=== PATIENT | male | born 1975 | race American Indian/Alaskan Native ===

== ENCOUNTER 2021-09-27 22:23 | Inpatient (IN) | payer OTHER ==
[2021-09-27] MEDS ORDERED: SODIUM CHLORIDE 0.9% 1000 ML 1,000 ML IV ONE ×2 (23:04→23:39)
--- NOTE | 2021-09-27 23:13 | Event Note ---
Date: 09/27/21 EMS documentation not available at time of chart dictation Verbal report received from emergency medical service Patient is a 46-year-old gentleman, who is currently incarcerated, who was sent to the emergency room by local retirement for medical clearance. The patient denies complaints. EMS reports the patient is tachycardic and hypotensive in the field. The patient has a history of morbid obesity, and chronic lymphedema in his right lower extremity. He states that the right lower extremity is chronically swollen. However, he denies headache, neck pain, chest pain, abdominal pain, vomiting. The patient denies shortness of breath. On examination, the patient is tachycardic and hypotensive and tachypneic. Right lower extremity shows a chronic appearing wound, that is warm, without pus or streaking obviously. It is asymmetrically swollen when compared to the right lower extremity. Fluids, EKG, laboratory studies ordered. Detailed history and physical to follow.
[2021-09-27] MEDS ORDERED: cefTRIAXone/NS 1 GM/50 ML 1 GM/50 ML BAG IV ONE (23:39)
[2021-09-27] MEDS ORDERED: VANCOMYCIN 2,000 MG in SODIUM CHLORIDE 0.9% 500 ML 500 ML IV ONE (23:39)
[2021-09-27] MEDS ORDERED: ACETAMINOPHEN 325 MG TAB PO ONE (23:39)
--- NOTE | 2021-09-27 23:55 | Emergency Department Report ---
ED General Adult HPI - General Chief complaint: Medical Clearance Stated complaint: I am fine PUI?: No Time Seen by Provider: 09/27/21 23:25 Source: patient, police, EMS (Verbal report received from emergency medical serv ices. EMS documentation not available at time of chart dictation ), RN notes reviewed Mode of arrival: Stretcher Limitations: Physical Limitation - History of Present Illness Initial comments: The patient is a 46-year-old gentleman. He has a history of morbid obesity. He also has a history of right lower extremity lymphedema, and cellulitis. The patient is brought to the hospital by emergency medical services for medical clearance. The patient states that he went to the [facility] (patient rochelle coronel incarcerated) earlier on today, because he felt weak and nauseous. He indicated that he felt like he might be having an infection in his right leg. He was reportedly found to be hypotensive and tachycardic, given ceftriaxone and fluids, and referred to the emergency room. The patient at the moment denies physical pain. The patient denies hematemesis and bright red blood per rectum. The patient denies urinary symptoms. -: This morning Severity scale (0 -10): 0 Consistency: now resolved Improves with: none Worsens with: none - Related Data Allergies Allergy/AdvReac Type Severity Reaction Status Date / Time No Known Allergies Allergy Verified 09/27/21 22:52 ED Review of Systems ROS: Stated complaint: HYPOTENSION Other details as noted in HPI Constitutional: malaise, weakness. denies: fever Eyes: denies: eye discharge ENT: denies: epistaxis Respiratory: shortness of breath. denies: cough Cardiovascular: denies: chest pain Gastrointestinal: denies: abdominal pain, nausea, vomiting, diarrhea, hematemesis, melena, hematochezia Genitourinary: denies: dysuria Musculoskeletal: arthralgia, myalgia Neurological: weakness Hematological/Lymphatic: denies: easy bleeding ED Past Medical Hx - Past Medical History Previous Medical History?: No - Surgical History Past Surgical History?: No - Social History Smoking Status: Never Smoker Substance Use Type: None ED Physical Exam - General Limitations: Physical Limitation General appearance: alert, anxious, obese - Head Head exam: Present: atraumatic, normocephalic - Eye Eye exam: Present: normal appearance, EOMI. Absent: nystagmus - ENT ENT exam: Present: normal exam, normal orophraynx, mucous membranes moist, normal external ear exam - Neck Neck exam: Present: normal inspection, full ROM. Absent: tenderness, meningismus - Respiratory Respiratory exam: Present: decreased breath sounds. Absent: respiratory distress, wheezes, rales, rhonchi, stridor - Cardiovascular Cardiovascular Exam: Present: normal rhythm, tachycardia, normal heart sounds. Absent: bradycardia, irregular rhythm, systolic murmur, diastolic murmur, rubs, gallop - GI/Abdominal GI/Abdominal exam: Present: soft. Absent: distended, tenderness, guarding, r ebound, rigid, pulsatile mass - Rectal Rectal exam: Present: deferred - Extremities Exam Extremities exam: Present: full ROM, tenderness (There is right medial thigh tenderness), other (2+ pulses noted in the bilateral upper and lower extremities. There is no long bony tenderness. The muscular compartments are soft. The pelvis is stable). Absent: normal inspection (Chronic appearing lymphedema in the right lower extremity. There is a chronic appearing posterior right tibial wound noted. The right lower extremity is asymmetrically swollen, and diffusely warm.), calf tenderness - Back Exam Back exam: Present: normal inspection. Absent: tenderness, CVA tenderness (R), CVA tenderness (L), paraspinal tenderness, vertebral tenderness - Neurological Exam Neurological exam: Present: alert, other (No facial droop. Tongue midline. Ex traocular movements intact bilaterally. Facial sensation intact to light touch in V1, V2, V3 distribution bilaterally. 5 and a 5 strength in 4 extremities. Sensation intact to light touch in 4 extremities.) - Psychiatric Psychiatric exam: Present: flat affect - Skin Skin exam: Present: warm ED Course Vital Signs 09/27/21 09/27/21 09/28/21 22:50 23:56 00:35 Temperature 98.3 F 100.2 F H Temperature [ Post-Procedure] Pulse Rate 130 H 130 H Pulse Rate [ Post-Procedure] Pulse Rate [Pre -Procedure] Respiratory 20 25 H Rate Respiratory Rate [Post- Procedure] Respiratory Rate [Pre- Procedure] Blood Pressure 142/119 [Left] Blood Pressure [Post-Procedure ] Blood Pressure [Pre-Procedure] Blood Pressure 92/60 [Right] O2 Sat by Pulse 97 97 97 Oximetry O2 Sat by Pulse Oximetry [Post -Procedure] O2 Sat by Pulse Oximetry [Pre- Procedure] 09/28/21 09/28/21 09/28/21 00:40 01:26 01:44 Temperature 99.7 F H Temperature [ Post-Procedure] Pulse Rate 129 H 127 H Pulse Rate [ Post-Procedure] Pulse Rate [Pre 119 H -Procedure] Respiratory 21 29 H Rate Respiratory Rate [Post- Procedure] Respiratory 47 H Rate [Pre- Procedure] Blood Pressure 83/42 84/42 [Left] Blood Pressure [Post-Procedure ] Blood Pressure 97/45 [Pre-Procedure] Blood Pressure [Right] O2 Sat by Pulse 96 100 Oximetry O2 Sat by Pulse Oximetry [Post -Procedure] O2 Sat by Pulse 96 Oximetry [Pre- Procedure] 09/28/21 02:09 Temperature Temperature [ 99.5 F Post-Procedure] Pulse Rate Pulse Rate [ 118 H Post-Procedure] Pulse Rate [Pre -Procedure] Respiratory Rate Respiratory 19 Rate [Post- Procedure] Respiratory Rate [Pre- Procedure] Blood Pressure [Left] Blood Pressure 73/33 [Post-Procedure ] Blood Pressure [Pre-Procedure] Blood Pressure [Right] O2 Sat by Pulse Oximetry O2 Sat by Pulse 96 Oximetry [Post -Procedure] O2 Sat by Pulse Oximetry [Pre- Procedure] - Reevaluation(s) Reevaluation #1: 09/27/21 23:56 Differential diagnosis, including but not limited to: Cellulitis, lymphangitis, DVT, dehydration, electrolyte derangement, thyroid derangement, infected wound, sepsis Assessment and plan: 46-year-old gentleman, with chronic right lower extremity lymphedema, who was tachycardic, hypotensive, with a complaint of right lower extremity medial thigh pain. Patient stoic, and not very forthcoming. Suspect that patient minimizing symptoms. Given obvious right lower extremity warmth, and abnormal vital signs, will treat empirically for cellulitis/lymphangitis. Start the patient on fluids, antibiotics, obtain right lower extremity DVT study. Admit patient to the medical service once initial diagnostics have resulted. Discussed this plan of care with the patient. All questions answered. 09/28/21 00:03 Oral temperature in the emergency room now 100.2 degrees. 09/28/21 02:20 Laboratory studies demonstrate renal insufficiency, lactic acidosis, transaminitis, elevated CK, hypomagnesemia. In addition, blood pressure unstable in the emergency room, 70s to low 100s. Patient is volume responsive, when placed in Trendelenburg, blood pressure goes up to 123 systolic. Suspect that the patient is very volume depleted. Additional fluids, Valdez catheter ordered, sodium bicarbonate ordered, CT scan of the right lower extremity ordered. Given hemodynamic instability, poor peripheral IV access, anticipated need for multiple phlebotomy draws, and anticipation of possible need for vasopressor therapy, discussed placement of central line with patient. Patient provided verbal and written informed consent for sterile central line placement. Discussed risk, benefits and alternatives. Central line placed in the right internal jugular vein using real-time ultrasound guidance. Post procedure x-ray demonstrates no obvious pneumothorax, and the catheter appears to be in appropriate position. a noncontrast CT scan of the right lower extremity was ordered. Also discussed with the hospital physician, Dr. De Jesus Requests call back once CT scan has resulted. However, will accept patient to the stepdown unit at this time Care were transferred to the overnight ER physician, to follow-up on CT scan of the right lower extremity, and contact the hospital physician. - Central Line Placement Right IJ Consent Obtained: verbal consent, written consent, emergent situation Time Out Performed: Yes Patient Placed on Monitor/Pulse Ox: Yes Prep: mask, gown, gloves Central Line Prep: Povidone-Iodine 1%, Chlorhexidine scrub, sterile drapes applied Local Anesthesia Used: Lidocaine 2%, with Epi Amount of Anesthesia Used (mls): 8 Ultrasound Used for Placement: Yes Central Line Lumen Inserted: triple Reason for Insertion: Emergency Venous Access Bloods Obtained for Lab: No Central Line Position: good blood return, all ports aspirated, flus, sutured in place with 2-0 Dressing Applied: Tegaderm Post Procedure X-Ray: tip of catheter in good p Patient Tolerated Procedure: well Complications: none Additional Comments: Patient prepped and draped in typical maximal sterile fashion. Using ultrasound guidance,right-sided internal jugular vein is cannulated with an 18-gauge needle, with 3 inch plastic catheter, guidewire, 0.032 x 60 cm, J-tip with a 3 mm radius is then inserted into the guiding catheter, and appropriate luminal placement is confirmed with real-time [id number] ultrasound guidance. A stab incision is made with an 11-gauge blade, and then incision is dilated. The 7 [place] triple-lumen catheter has each of the 3 ports flushed with sterile saline in advance of placement. Then, a 7 [place] triple-lumen catheter is inserted over the guidewire, and sutured to the skin. Real-time ultrasound guidance confirms appropriate luminal placement. Ports are aspirated easily, and flushed easily. Blue Biopatch is then affixed to the skin, and Tegaderm is applied to the skin. This patient tolerated the procedure well, and without obvious complication. Blood loss estimated at less than 50 cc. . - EJ/Peripheral Line Other Time Out Performed: Yes Indications: multiple IV sites needed Skin Cleansed in Sterile Fashion: Yes Size: 20 Dressing Placed: Tegaderm Patient Tolerated Procedure: well Additional Comments: Left anterior chest wall ED Medical Decision Making - Lab Data Result diagrams: 09/28/21 00:26 09/28/21 00:26 Vital Signs 09/27/21 22:50 Temperature 98.3 F Pulse Rate 130 H Respiratory 20 Rate Blood Pressure 92/60 [Right] O2 Sat by Pulse 97 Oximetry Lab Results 09/28/21 09/28/21 09/28/21 Range/Units 00:26 00:26 00:26 WBC 10.7 (4.5-11.0) K/mm3 RBC 5.70 H (3.65-5.03) M/mm3 Hgb 15.6 H (11.8-15.2) gm/dl Hct 47.0 H (35.5-45.6) % MCV 83 L (84-94) fl MCH 27 L (28-32) pg MCHC 33 (32-34) % RDW 16.8 H (13.2-15.2) % Plt Count 270 (140-440) K/mm3 Seg Neutrophils % Market Director PT (12.2-14.9) Sec. INR (0.87-1.13) VBG pH 7.443 H (7.320-7.420) Albumin/Globulin Ratio 0.7 % 09/28/21 Range/Units 00:26 WBC (4.5-11.0) K/mm3 RBC (3.65-5.03) M/mm3 Hgb (11.8-15.2) gm/dl Hct (35.5-45.6) % MCV (84-94) fl MCH (28-32) pg MCHC (32-34) % RDW (13.2-15.2) % Plt Count (140-440) K/mm3 Seg Neutrophils % PT 18.5 H (12.2-14.9) Sec. INR 1.39 H (0.87-1.13) VBG pH (7.320-7.420) Albumin/Globulin Ratio % Lab Results 09/28/21 09/28/21 09/28/21 Range/Units 00:26 00:26 00:26 WBC 10.7 (4.5-11.0) K/mm3 RBC 5.70 H (3.65-5.03) M/mm3 Hgb 15.6 H (11.8-15.2) gm/dl Hct 47.0 H (35.5-45.6) % MCV 83 L (84-94) fl MCH 27 L (28-32) pg MCHC 33 (32-34) % RDW 16.8 H (13.2-15.2) % Plt Count 270 (140-440) K/mm3 Seg Neutrophils % Market Director PT (12.2-14.9) Sec. INR (0.87-1.13) VBG pH (7.320-7.420) Sodium 130 L (137-145) mmol/L Potassium 4.3 (3.6-5.0) mmol/L Chloride 98.2 (98-107) mmol/L Carbon Dioxide 14 L (22-30) mmol/L Anion Gap 22 mmol/L BUN 25 H (9-20) mg/dL Creatinine 3.8 H (0.8-1.3) mg/dL Estimated GFR 21 ml/min BUN/Creatinine Ratio 7 % Glucose 81 (75-100) mg/dL Lactic Acid 4.00 H* (0.7-2.0) mmol/L Calcium 8.6 (8.4-10.2) mg/dL Magnesium (1.7-2.3) mg/dL Total Bilirubin 0.60 (0.1-1.2) mg/dL AST 245 H (5-40) units/L ALT 69 H (7-56) units/L Alkaline Phosphatase 47 (35-129) units/L Total Creatine Kinase (55-170) units/L Total Protein 7.3 (6.3-8.2) g/dL Albumin 3.1 L (3.9-5) g/dL Albumin/Globulin Ratio 0.7 % TSH (0.270-4.200) mlU/mL 09/28/21 09/28/21 09/28/21 Range/Units 00:26 00:26 00:26 WBC (4.5-11.0) K/mm3 RBC (3.65-5.03) M/mm3 Hgb (11.8-15.2) gm/dl Hct (35.5-45.6) % MCV (84-94) fl MCH (28-32) pg MCHC (32-34) % RDW (13.2-15.2) % Plt Count (140-440) K/mm3 Seg Neutrophils % PT 18.5 H (12.2-14.9) Sec. INR 1.39 H (0.87-1.13) VBG pH 7.443 H (7.320-7.420) Sodium (137-145) mmol/L Potassium (3.6-5.0) mmol/L Chloride (98-107) mmol/L Carbon Dioxide (22-30) mmol/L Anion Gap mmol/L BUN (9-20) mg/dL Creatinine (0.8-1.3) mg/dL Estimated GFR ml/min BUN/Creatinine Ratio % Glucose (75-100) mg/dL Lactic Acid (0.7-2.0) mmol/L Calcium (8.4-10.2) mg/dL Magnesium 0.90 L* (1.7-2.3) mg/dL Total Bilirubin (0.1-1.2) mg/dL AST (5-40) units/L ALT (7-56) units/L Alkaline Phosphatase (35-129) units/L Total Creatine Kinase 8677 H (55-170) units/L Total Protein (6.3-8.2) g/dL Albumin (3.9-5) g/dL Albumin/Globulin Ratio % TSH (0.270-4.200) mlU/mL 09/28/21 Range/Units 00:26 WBC (4.5-11.0) K/mm3 RBC (3.65-5.03) M/mm3 Hgb (11.8-15.2) gm/dl Hct (35.5-45.6) % MCV (84-94) fl MCH (28-32) pg MCHC (32-34) % RDW (13.2-15.2) % Plt Count (140-440) K/mm3 Seg Neutrophils % PT (12.2-14.9) Sec. INR (0.87-1.13) VBG pH (7.320-7.420) Sodium (137-145) mmol/L Potassium (3.6-5.0) mmol/L Chloride (98-107) mmol/L Carbon Dioxide (22-30) mmol/L Anion Gap mmol/L BUN (9-20) mg/dL Creatinine (0.8-1.3) mg/dL Estimated GFR ml/min BUN/Creatinine Ratio % Glucose (75-100) mg/dL Lactic Acid (0.7-2.0) mmol/L Calcium (8.4-10.2) mg/dL Magnesium (1.7-2.3) mg/dL Total Bilirubin (0.1-1.2) mg/dL AST (5-40) units/L ALT (7-56) units/L Alkaline Phosphatase (35-129) units/L Total Creatine Kinase (55-170) units/L Total Protein (6.3-8.2) g/dL Albumin (3.9-5) g/dL Albumin/Globulin Ratio % TSH 3.700 (0.270-4.200) mlU/mL - EKG Data -: EKG Interpreted by Me EKG shows normal: sinus rhythm Rate: tachycardia - EKG Data When compared to previous EKG there are: previous EKG unavailable 09/28/21 00:03 EKG is interpreted at 23: 52 Sinus rhythm, tachycardia, rate 131 bpm. Left axis deviation, normal P wave axis, motion artifact, left anterior fascicular block, QTC 455 ms. Abnormal EKG. Not a STEMI. - Radiology Data Radiology results: pending, report reviewed, image reviewed interpreted by me: Post procedure chest x-ray reviewed and appreciated. Appears to be in the SVC. No pneumothorax. Also discussed and reviewed in real-time with radiologist, Dr. Rollins. CHEST 1 VIEW 09/27/2021 11:43 PM INDICATION / CLINICAL INFORMATION: tachypnea. COMPARISON: None available. FINDINGS: SUPPORT DEVICES: None. HEART / MEDIASTINUM: No significant abnormality. LUNGS / PLEURA: No significant pulmonary or pleural abnormality. No pneumothorax. ADDITIONAL FINDINGS: No significant additional findings. IMPRESSION: 1. No acute findings. Signer Name: Diamond Rollins MD Signed: 09/27/2021 11:26 PM Workstation Name: [id number] Critical Care Time: Yes Critical care time in (mins) excluding proc time.: 120 Critical care attestation.: If time is entered above; I have spent that time in minutes in the direct care of this critically ill patient, excluding procedure time. ED Disposition Clinical Impression: Sepsis, Rhabdomyolysis, Renal insufficiency, Hypomagnesemia, Dehydration Disposition: ADMITTED INPATIENT Is pt being admited?: Yes Does the pt Need Aspirin: No Condition: Critical Referrals: PRIMARY CARE, [Primary Care Provider] - 3-5 Days
--- NOTE | 2021-09-28 00:30 | XRay Report ---
CHEST 1 VIEW 09/27/2021 11:43 PM INDICATION / CLINICAL INFORMATION: tachypnea. COMPARISON: None available. FINDINGS: SUPPORT DEVICES: None. HEART / MEDIASTINUM: No significant abnormality. LUNGS / PLEURA: No significant pulmonary or pleural abnormality. No pneumothorax. ADDITIONAL FINDINGS: No significant additional findings. IMPRESSION: 1. No acute findings. Signer Name: Diamond Rollins MD Signed: 09/28/2021 12:26 AM Workstation Name: [id number]
[2021-09-28 00:44] LABS: Hemoglobin 15.6 gm/dl (11.8-15.2); Mean Corpuscular HGB Conc 33 % (32-34); Mean Corpuscular Volume 83 fl (84-94); Platelet Count 270 K/mm3 (140-440); Red Cell Distribution Width 16.8 % (13.2-15.2)
[2021-09-28] MEDS ORDERED: SODIUM CHLORIDE 0.9% 1000 ML 2,000 ML IV ONE (00:57)
[2021-09-28 01:02] LABS: Albumin 3.1 g/dL (3.9-5); Calcium 8.6 mg/dL (8.4-10.2)
[2021-09-28 01:04] LABS: INR 1.39 (0.87-1.13)
[2021-09-28] MEDS ORDERED: SODIUM CHLORIDE 0.9% 1000 ML 1,000 ML IV ONE (01:25)
[2021-09-28] MEDS ORDERED: MAGNESIUM SULFATE 2 GM/50 ML BAG IV ONE (01:27)
[2021-09-28] MEDS ORDERED: MAGNESIUM OXIDE 400 MG TAB PO STA (01:27)
[2021-09-28] MEDS ORDERED: SODIUM BICARB 8.4% 50 MEQ/50 ML SYRINGE IV ONE (01:29)
[2021-09-28] MEDS ORDERED: LIDOCAINE 2%/EPINEPHRINE 1:100,000 VIAL (20 ML) INFILTRATI ONE (01:37)
--- NOTE | 2021-09-28 01:49 | Vascular Lab Report ---
DUPLEX DOPPLER LOWER EXTREMITY VEINS, RIGHT INDICATION / CLINICAL INFORMATION: Right lower extremity pain redness warmth. TECHNIQUE: Duplex doppler imaging was performed through the veins of the right lower extremity using venous compression and other maneuvers. COMPARISON: None available. FINDINGS: Manager Proposal unable to visualize mid to distal superficial femoral vein due to body habitus. RIGHT COMMON FEMORAL VEIN: Negative. RIGHT FEMORAL VEIN: Negative. RIGHT POPLITEAL VEIN: Negative. RIGHT CALF VEINS: Negative. ADDITIONAL FINDINGS: Moderate subcutaneous soft tissue edema in the right thigh and knee. IMPRESSION: 1. No sonographic evidence for DVT in the right lower extremity. Signer Name: Diamond Rollins MD Signed: 09/28/2021 1:45 AM Workstation Name: [email or web address]
[2021-09-28 02:26] LABS: Band Neutrophils # (Manual) 3.2 K/mm3; Platelet Estimate Consistent w Auto; RBC Morphology Normal; Total Cells Counted 100
--- NOTE | 2021-09-28 02:31 | XRay Report ---
CHEST 1 VIEW 09/28/21 2:16 AM INDICATION / CLINICAL INFORMATION: central line placement. COMPARISON: 09/27/21 FINDINGS: SUPPORT DEVICES: Right jugular central line projects over the superior vena cava. HEART / MEDIASTINUM: Heart is enlarged. Mild pulmonary venous congestion. LUNGS / PLEURA: Borderline interstitial edema. No pneumothorax. ADDITIONAL FINDINGS: No significant additional findings. IMPRESSION: 1. Central line in expected position. 2. Mild cardiomegaly and pulmonary venous hypertension with borderline interstitial edema. Signer Name: Diamond Rollins MD Signed: 09/28/2021 2:27 AM Workstation Name: [id number]
[2021-09-28] MEDS ORDERED: MAGNESIUM HYDROXIDE (MOM) ORAL LIQD UDC PO PRN (02:56)
[2021-09-28] MEDS ORDERED: MORPHINE 2 MG/1 ML INJ IV PRN (02:56)
[2021-09-28] MEDS ORDERED: ONDANSETRON 4 MG/2 ML INJ IV PRN (02:56)
[2021-09-28] MEDS ORDERED: MORPHINE 4 MG/1 ML INJ IV PRN (02:56)
[2021-09-28] MEDS ORDERED: SODIUM CHLORIDE 0.9% 1000 ML 1,000 ML IV SCH ×2 (03:00→11:00)
--- NOTE | 2021-09-28 03:15 | History and Physical Report ---
History of Present Illness Date of examination: 09/28/21 Date of admission: 09/28/2021 Chief complaint: Generalized weakness Nausea History of present illness: 46-year-old -German male with known history of morbid obesity, lymphedema of the right lower extremity brought into the emergency room today for medical clearance. Patient currently incarcerated at [facility]. Complains of nausea and generalized weakness today he also indicates that he has been having pain in his right lower extremity. Patient was found to be hypotensive, tachycardic and was given IV fluid and IV antibiotics and referred to the emergency room. He denies any fever or chills, no chest pain or shortness of breath, no abdominal pain. No hematuria or dysuria. Work-up in the emergency room today, labs reveals lactic acid of 3.9 magnesium of 0.90, creatinine kinase of 8677 Ultrasound of the right lower extremity shows no DVT. CT of the right lower extremity shows right lower extremity cellulitis. Reactive adenopathy in the proximal right thigh right groin and right he mipelvis. Past History Past Medical History: other (Morbid Obesity) Past Surgical History: No surgical history Social history: no significant social history Family history: no significant family history Medications and Allergies Allergies Allergy/AdvReac Type Severity Reaction Status Date / Time No Known Allergies Allergy Verified 09/27/21 22:52 Active Meds: Active Medications Acetaminophen (Acetaminophen 325 Mg Tab) 650 mg PO Q6H PRN PRN Reason: Pain MILD(1-3)/Fever >100.5/BARRY Sodium Chloride (Nacl 0.9% 1000 Ml) 1,000 mls @ 125 mls/hr IV DIRECT LUZ Ceftriaxone Sodium (Rocephin/Ns 2 Gm/100 Ml) 2 gm in 100 mls @ 200 mls/hr IV Q24H LUZ; Protocol Magnesium Hydroxide (Magnesium Hydroxide (Mom) Oral Liqd Udc) 30 ml PO Q4H PRN PRN Reason: Constipation Morphine Sulfate (Morphine 2 Mg/1 Ml Inj) 2 mg IV Q4H PRN PRN Reason: Pain, Moderate (4-6) Morphine Sulfate (Morphine 4 Mg/1 Ml Inj) 4 mg IV Q4H PRN PRN Reason: Pain , Severe (7-10) Ondansetron HCl (Ondansetron 4 Mg/2 Ml Inj) 4 mg IV Q8H PRN PRN Reason: Nausea And Vomiting Sodium Chloride (Sodium Chloride 0.9% 10 Ml Flush Syringe) 10 ml IV BID LUZ Sodium Chloride (Sodium Chloride 0.9% 10 Ml Flush Syringe) 10 ml IV PRN PRN PRN Reason: LINE FLUSH Review of Systems Constitutional: fever, chills, no weakness Ears, nose, mouth and throat: no nasal congestion, no sore throat Cardiovascular: no chest pain, no palpitations Respiratory: no cough, no shortness of breath Gastrointestinal: no abdominal pain, no nausea, no vomiting, no diarrhea Genitourinary Male: no dysuria, no hematuria, no flank pain Musculoskeletal: no neck pain, no low back pain Integumentary: no rash, no pruritis Neurological: no headaches, no confusion Psychiatric: no anxiety, no depression Endocrine: no polydipsia, no polyuria, no nocturia Exam - Constitutional Vitals: Temp Pulse Resp BP Pulse Ox 99.5 F 118 H 19 73/33 96 09/28/21 02:09/28/21 02:09/28/21 02:09/28/21 02:09/28/21 02:09 General appearance: Present: no acute distress, well-nourished, obese - EENT Eyes: Present: PERRL, EOM intact. Absent: scleral icterus ENT: hearing intact, clear oral mucosa, dentition normal - Neck Neck: Present: supple, normal ROM - Respiratory Respiratory effort: normal Respiratory: bilateral: CTA - Cardiovascular Rhythm: regular Heart Sounds: Present: S1 & S2. Absent: gallop, systolic murmur, diastolic murmur, rub, click - Extremities Extremities: no ischemia, pulses intact, pulses symmetrical, normal temperature, normal color, Full ROM, abnormal Extremity abnormal: edema (Trace bilateral ankle edema), tenderness (Right lower extremity lymphedema with tenderness, warmth to touch.) Peripheral Pulses: within normal limits - Abdominal General gastrointestinal: Present: soft, non-tender, non-distended, normal bowel sounds. Absent: mass - Integumentary Integumentary: Present: clear, warm, dry, normal turgor. Absent: rash - Musculoskeletal Musculoskeletal: strength equal bilaterally - Psychiatric Psychiatric: appropriate mood/affect, intact judgment & insight, memory intact, cooperative - Neurologic Neurologic: CNII-XII intact, no focal deficits, moves all extremities Results - Labs CBC & Chem 7: 09/29/21 04:35 09/29/21 04:35 Labs: Abnormal lab results 09/28/21 09/28/21 09/28/21 Range/Units 00:26 00:26 00:26 RBC 5.70 H (3.65-5.03) M/mm3 Hgb 15.6 H (11.8-15.2) gm/dl Hct 47.0 H (35.5-45.6) % MCV 83 L (84-94) fl MCH 27 L (28-32) pg RDW 16.8 H (13.2-15.2) % Lymphocytes % (Manual) 3.0 L (13.4-35.0) % Lymphocytes # (Manual) 0.3 L (1.2-5.4) K/mm3 PT (12.2-14.9) Sec. INR (0.87-1.13) VBG pH (7.320-7.420) Sodium 130 L (137-145) mmol/L Carbon Dioxide 14 L (22-30) mmol/L BUN 25 H (9-20) mg/dL Creatinine 3.8 H (0.8-1.3) mg/dL Lactic Acid 4.00 H* (0.7-2.0) mmol/L Magnesium (1.7-2.3) mg/dL AST 245 H (5-40) units/L ALT 69 H (7-56) units/L Total Creatine Kinase (55-170) units/L Albumin 3.1 L (3.9-5) g/dL 09/28/21 09/28/21 09/28/21 Range/Units 00:26 00:26 00:26 RBC (3.65-5.03) M/mm3 Hgb (11.8-15.2) gm/dl Hct (35.5-45.6) % MCV (84-94) fl MCH (28-32) pg RDW (13.2-15.2) % Lymphocytes % (Manual) (13.4-35.0) % Lymphocytes # (Manual) (1.2-5.4) K/mm3 PT 18.5 H (12.2-14.9) Sec. INR 1.39 H (0.87-1.13) VBG pH 7.443 H (7.320-7.420) Sodium (137-145) mmol/L Carbon Dioxide (22-30) mmol/L BUN (9-20) mg/dL Creatinine (0.8-1.3) mg/dL Lactic Acid (0.7-2.0) mmol/L Magnesium 0.90 L* (1.7-2.3) mg/dL AST (5-40) units/L ALT (7-56) units/L Total Creatine Kinase 8677 H (55-170) units/L Albumin (3.9-5) g/dL Assessment and Plan - Patient Problems (1) Sepsis Current Visit: Yes Status: Acute Plan to address problem: Possibly secondary to underlying cellulitis. Patient placed on empiric IV antibiotics and IV fluid. (2) Cellulitis of right lower extremity Current Visit: Yes Status: Acute Plan to address problem: Patient placed on IV antibiotics. (3) Hypomagnesemia Current Visit: Yes Status: Acute Plan to address problem: Magnesium repleted and will monitor chemistry. (4) Renal insufficiency Current Visit: Yes Status: Acute Plan to address problem: We will continue on IV fluid. Monitor BUN and creatinine. Await nephrology evaluation and recommendations (5) Rhabdomyolysis Current Visit: Yes Status: Acute Plan to address problem: Patient placed on IV fluid. Will monitor creatinine kinase. (6) Elevated creatine kinase Current Visit: Yes Status: Acute Plan to address problem: We will continue on IV fluid Monitor creatinine kinase (7) DVT prophylaxis Current Visit: Yes Status: Acute Plan to address problem: Patient on tight anticoagulation with subcutaneous heparin. (8) Full code status Current Visit: Yes Status: Acute Plan to address problem: Patient is full code.
--- NOTE | 2021-09-28 03:51 | Cat Scan Report ---
CT RIGHT LOWER EXTREMITY WITHOUT CONTRAST INDICATION / CLINICAL INFORMATION: R.L.E. pain and swelling, possible infection, Rhabdo. TECHNIQUE: All CT scans at this location are performed using CT dose reduction for ALARA by means of automated exposure control. Axial CT images were obtained through the entire right lower extremity wi th coronal and sagittal 2-D reconstruction images produced. COMPARISON: None available. FINDINGS: BONES: No fracture. No osseous lesion. No osseous destruction. MUSCLES / TENDONS: No significant abnormality. No CT evidence for myositis. SOFT TISSUES: Moderate to severe subcutaneous soft tissue swelling and skin thickening of the mid rig ht thigh extending to the knee, lower leg, and foot. No soft tissue gas or fluid collection. Reactive lymph nodes in the right groin and proximal right thigh. Reactive lymph nodes in the distal right il iac chain. VISUALIZED JOINTS: Moderate right knee degenerative arthrosis with 1 cm intra-articular body in the p osterior joint space. ADDITIONAL FINDINGS: None. IMPRESSION: 1. Right lower extremity cellulitis. No CT evidence for osteomyelitis, soft tissue abscess, or necrot izing fasciitis. 2. Reactive adenopathy in the proximal right thigh, right groin, and right hemipelvis. Signer Name: Diamond Rollins MD Signed: 09/28/2021 3:46 AM Workstation Name: [id number]
[2021-09-28] MEDS ORDERED: VANCOMYCIN PHARMACY TO DOSE IV SCH (04:00)
[2021-09-28] MEDS ORDERED: NORepinephrine/NS 8 MG-250 ML 8 MG/250 ML INFUS..BTL IV SCH (07:00)
--- NOTE | 2021-09-28 11:27 | Electrocardiograph Report ---
[facility] Test Date: 2021-09-27 Test Time: 23:52:28 Pat Name: JOHN GERBER Department: Room: [place] [address] Gender: M Financial Operations Clerk: NURSE : 1975 Requested By: MARI DANIELLE Order Number: [id number] Reading MD: Chris Radford Measurements Intervals [place] Rate: 131 P: 43 SD: 143 QRS: -73 QRSD: 92 T: 33 QT: 307 QTc: 455 Interpretive Statements Sinus tachycardia Probable left atrial enlargement Left anterior fascicular block No previous ECG available for comparison Electronically Signed On 09-28-2021 11:26:59 EST by Chris Radford
[2021-09-28] MEDS: ACETAMINOPHEN 325 MG TAB PO PRN (15:14)
[2021-09-28] MEDS: HEPARIN 5,000 UNIT/1 ML VIAL SUB-Q SCH (15:15)
[2021-09-28 15:28] LABS: Bacteria,Urine 1+ /HPF (Negative); Bilirubin,Urine NEG (Negative); Blood,Urine LG (Negative); Color,Urine Yellow (Yellow); Mucus,Urine FEW /HPF; Urobilinogen,Urine < 2.0 mg/dL (<2.0)
[2021-09-28 15:48] LABS: Chloride, Urine 22.1 mmolL (110-250); Creatinine,Urine 153.7 mg/dL (0.1-20.0)
[2021-09-28] MEDS: NORepinephrine/NS 8 MG-250 ML 8 MG/250 ML INFUS..BTL IV SCH (16:43)
--- NOTE | 2021-09-28 16:53 | Consultation ---
History of Present Illness - Reason for Consult acute renal failure - History of Present Illness 46-year-old obese -Russian male past medical history of lymphedema presented to the emergency department with worsening right lower extremity pain. He is currently incarcerated at this time. Nephrology consult did because of concerns for acute kidney injury. Unknown previous baseline kidney function. Patient being treated for what seems to be right lower extremity cellulitis. Blood pressures have been low and there is concern for underlying sepsis secondary to aforementioned cellulitis. Past History Past Medical History: other (Morbid Obesity) Past Surgical History: No surgical history Social history: no significant social history Family history: no significant family history Medications and Allergies Allergies Allergy/AdvReac Type Severity Reaction Status Date / Time No Known Allergies Allergy Verified 09/27/21 22:52 Active Meds: Active Medications Acetaminophen (Acetaminophen 325 Mg Tab) 650 mg PO Q6H PRN PRN Reason: Pain MILD(1-3)/Fever >100.5/BARRY Last Admin: 09/28/21 15:14 Dose: 650 mg Documented by: Heparin Sodium (Porcine) (Heparin 5,000 Unit/1 Ml Vial) 5,000 unit SUB-Q Q8HR LUZ Last Admin: 09/28/21 15:15 Dose: 5,000 unit Documented by: Ceftriaxone Sodium (Rocephin/Ns 2 Gm/100 Ml) 2 gm in 100 mls @ 200 mls/hr IV Q24H LUZ; Protocol Sodium Chloride (Nacl 0.9% 1000 Ml) 1,000 mls @ 100 mls/hr IV DIRECT LUZ Last Admin: 09/28/21 10:49 Dose: 100 mls/hr Documented by: NORepinephrine/NS 8 MG-250 ML (Norepinephrine/Ns 8 Mg-250 Ml (Double Conc)) 8 mg in 250 mls @ 3.75 mls/hr IV TITRATE LUZ; Protocol Last Admin: 09/28/21 16:43 Dose: 2 mcg/min, 3.75 mls/hr Documented by: Magnesium Hydroxide (Magnesium Hydroxide (Mom) Oral Liqd Udc) 30 ml PO Q4H PRN PRN Reason: Constipation Morphine Sulfate (Morphine 2 Mg/1 Ml Inj) 2 mg IV Q4H PRN PRN Reason: Pain, Moderate (4-6) Morphine Sulfate (Morphine 4 Mg/1 Ml Inj) 4 mg IV Q4H PRN PRN Reason: Pain , Severe (7-10) Ondansetron HCl (Ondansetron 4 Mg/2 Ml Inj) 4 mg IV Q8H PRN PRN Reason: Nausea And Vomiting Sodium Chloride (Sodium Chloride 0.9% 10 Ml Flush Syringe) 10 ml IV BID LUZ Last Admin: 09/28/21 09:40 Dose: 10 ml Documented by: Sodium Chloride (Sodium Chloride 0.9% 10 Ml Flush Syringe) 10 ml IV PRN PRN PRN Reason: LINE FLUSH Review of Systems All systems: negative Constitutional: fatigue Musculoskeletal: shooting leg pain Exam - Vital Signs Vital signs: Vital Signs Temp Pulse Resp BP Pulse Ox 98.3 F 130 H 20 92/60 97 09/27/21 22:50 09/27/21 22:50 09/27/21 22:50 09/27/21 22:50 09/27/21 22:50 - General Appearance General appearance: well-developed, obese EENT: ATNC Neck: Present: neck supple Respiratory: Clear to Ascultation Heart: regular Gastrointestinal: Present: normal Integumentary: warm and dry Neurologic: no focal deficit Musculoskeletal: Present: deferred Psychiatric: cooperative Results - Lab Results 09/28/21 00:26 09/28/21 00:26 Most recent lab results Calcium 8.6 mg/dL (8.4-10.2) 09/28/21 00:26 Magnesium 0.90 mg/dL (1.7-2.3) L* 09/28/21 00:26 Urine Creatinine 153.7 mg/dL (0.1-20.0) H 09/28/21 15:10 Urine Sodium 58 mmol/L 09/28/21 15:10 Assessment and Plan - Patient Problems (1) Acute kidney injury Current Visit: Yes Status: Acute Plan to address problem: possibly prerenal in nature in the setting of sepsis and right lower extremity cellulitis. Continue with current IV fluid hydration along with appropriate antibiotic therapy which should be dosed per renal function. Will obtain renal ultrasound along with urinalysis and urine electrolytes for further evaluation. We will follow up closely. Please avoid all nephrotoxins and maintain mean her toe pressures above 65 mmHg. (2) Cellulitis of right lower extremity Current Visit: Yes Status: Acute Plan to address problem: continue IV antibiotics Per primary team recommendations. Please dose antibiotics appropriately for his decreased renal function. Follow-up blood and wound cultures at this time. (3) Rhabdomyolysis Current Visit: Yes Status: Acute Plan to address problem: agree with current IV fluid hydration and follow-up of CPK levels at this time. (4) Sepsis Current Visit: Yes Status: Acute Plan to address problem: follow-up culture studies at this time. Currently on IV antibiotics. Agree with current IV fluid hydration. Will monitor closely. CT of the right lower extremity did not show evidence of acute osteomyelitis but however this scan was done without contrast secondary to decreased renal function.
--- NOTE | 2021-09-28 17:06 | Progress Note ---
Assessment and Plan This is a 31-uroih-ewk AA male with past medical history of morbid obesity, lymphedema of the right lower extremity brought into the ED from the [facility] with complaints of generalized weakness and RLE pain. Patient was found to be septic secondary to RLE cellulitis, SAL with with hypotension, and tachycardia. Patient was admitted to the ICU for further management. Assessment and plan: --Sepsis with shock Continue we will also initiate pressor support Likely due to lower extremity cellulitis, continue empiric antibiotics and follow culture --Rhabdomyolysis - Cr. Kinase as high as 8677 - Continue rehydration with cont. IVF - will continue to trend CK --Acute kidney injury (SAL) most likely ATN - Nephrology on consult, - Strict intake and output - Avoid nephrotoxic medications; Renally dose medications - Continue IVF for now with sodium bicarbonate - Monitor and replace electrolytes as needed -- RLE Cellulitis with lymphedema - 09/28 RLE US shows no evidence of DVT - 09/[address] shows right lower extremity cellulitis. Reactive adenopathy in the proximal right thigh right groin and right hemipelvis -Continue empiric antibiotics, IV fluids - ID consulted, pending recommendations - wound care consult - Monitor CBCs and fever curve - Continue to trend lactic acid --Hypomagnesemia, replete and monitor --Morbid obesity, dietary and exercise recommendation when clinically more stable --DVT prophylaxis, heparin --Full CODE STATUS The high probability of a clinically significant, sudden or life threatening deterioration of the [multiple] system(s) required my full and direct attention, intervention and personal management. The aggregate critical care time was [60] minutes. This time is in addition to time spent performing reported procedures but includes the following: [x] Data Review and interpretation [x] Patient assessment and monitoring of vital signs [x] Documentation [x] Medication orders and management Daily clinical course: 09/28/21: Initiate bicarbonate drip for declining renal function and rhabdomyolysis, replete magnesium, follow BMP, consult nephrology, initiate pressor support as blood pressure not responding to fluids only, continue empiric antibiotics, consult critical care. Subjective Date of service: 09/28/21 Interval history: Patient seen and examined. Medical records and medication list reviewed. No acute event overnight noted by the RN. Patient denies any chest pain or difficulty breathing. Noted elevated serum creatinine and low magnesium level BP also running low, Discussed plan of care at bedside with patient. Objective - Exam Narrative Exam: General appearance: Present: no acute distress, well-nourished, obese - EENT Eyes: Present: PERRL, EOM intact ENT: hearing intact, clear oral mucosa - Neck Neck: Present: normal ROM - Respiratory Respiratory effort: normal Respiratory: bilateral: diminished - Cardiovascular Rhythm: regular Heart Sounds: Present: S1 & S2 - Extremities Extremities: no ischemia, pulses intact, pulses symmetrical Extremity abnormal: edema - Peripheral Assessment Right Lower Extremity Edema Type: Non-pitting Edema Degree: 4+ Capillary Refill: < 3 seconds Skin Temperature: Warm Generalized Edema Type: Non-pitting Edema Degree: 1+ Capillary Refill: < 3 seconds Skin Temperature: Warm Peripheral Pulses: within normal limits - Abdominal General gastrointestinal: soft, non-tender, normal bowel sounds - Integumentary Integumentary: Present: warm, dry - Psychiatric Psychiatric: cooperative - Neurologic Neurologic: CNII-XII intact, moves all extremities - Constitutional Vitals: Vital Signs - 12hr 09/28/21 09/28/21 09/28/21 05:24 05:37 06:16 Temperature Pulse Rate 118 H 114 H 113 H Respiratory 38 H 18 36 H Rate Blood Pressure 91/44 Blood Pressure 94/36 111/29 [Left] O2 Sat by Pulse 99 100 77 L Oximetry 09/28/21 09/28/21 09/28/21 06:50 07:00 07:10 Temperature Pulse Rate 117 H 116 H 112 H Respiratory 14 28 H 29 H Rate Blood Pressure 110/47 110/47 121/62 Blood Pressure [Left] O2 Sat by Pulse 96 100 Oximetry 09/28/21 09/28/21 09/28/21 07:20 07:30 09:00 Temperature Pulse Rate 113 H 114 H Respiratory 29 H 30 H Rate Blood Pressure 121/62 121/62 90/54 Blood Pressure [Left] O2 Sat by Pulse 95 98 97 Oximetry 09/28/21 09/28/21 09/28/21 09:39 09:40 09:50 Temperature Pulse Rate 117 H 115 H Respiratory 30 H 27 H Rate Blood Pressure 74/26 74/26 Blood Pressure [Left] O2 Sat by Pulse 97 98 99 Oximetry 09/28/21 09/28/21 09/28/21 10:00 10:10 10:20 Temperature Pulse Rate 124 H 120 H 121 H Respiratory 20 26 H 33 H Rate Blood Pressure 93/58 49/25 93/58 Blood Pressure [Left] O2 Sat by Pulse 98 100 100 Oximetry 09/28/21 09/28/21 09/28/21 10:30 10:40 10:50 Temperature Pulse Rate 121 H 121 H 125 H Respiratory 17 31 H 32 H Rate Blood Pressure 97/54 97/54 97/54 Blood Pressure [Left] O2 Sat by Pulse 99 98 99 Oximetry 09/28/21 09/28/21 09/28/21 11:00 11:30 11:40 Temperature Pulse Rate 125 H 128 H Respiratory 40 H 45 H 33 H Rate Blood Pressure 97/54 104/74 104/74 Blood Pressure [Left] O2 Sat by Pulse 99 98 99 Oximetry 09/28/21 09/28/21 09/28/21 11:50 12:00 12:20 Temperature Pulse Rate 134 H Respiratory 32 H 24 Rate Blood Pressure 104/74 104/74 115/84 Blood Pressure [Left] O2 Sat by Pulse 97 99 Oximetry 09/28/21 09/28/21 09/28/21 12:30 12:40 12:50 Temperature Pulse Rate 137 H 126 H 127 H Respiratory 29 H 26 H 19 Rate Blood Pressure 115/84 94/33 94/33 Blood Pressure [Left] O2 Sat by Pulse 100 100 99 Oximetry 09/28/21 09/28/21 09/28/21 13:00 13:10 13:20 Temperature Pulse Rate 130 H 129 H 129 H Respiratory 27 H 13 36 H Rate Blood Pressure 94/33 104/27 Blood Pressure [Left] O2 Sat by Pulse 100 100 100 Oximetry 09/28/21 09/28/21 09/28/21 13:30 13:40 13:50 Temperature Pulse Rate 132 H 126 H 129 H Respiratory 24 47 H 18 Rate Blood Pressure 112/90 112/90 112/90 Blood Pressure [Left] O2 Sat by Pulse 98 98 97 Oximetry 09/28/21 09/28/21 09/28/21 14:00 14:10 14:20 Temperature 100.1 F H Pulse Rate 133 H 134 H 127 H Respiratory 32 H 29 H 33 H Rate Blood Pressure 108/47 108/47 108/47 Blood Pressure [Left] O2 Sat by Pulse 100 93 99 Oximetry 09/28/21 09/28/21 09/28/21 14:30 14:40 14:50 Temperature Pulse Rate 130 H 136 H 132 H Respiratory 38 H 25 H 22 Rate Blood Pressure 106/51 106/51 106/51 Blood Pressure [Left] O2 Sat by Pulse 100 76 L 98 Oximetry 09/28/21 09/28/21 09/28/21 15:00 15:10 15:20 Temperature Pulse Rate 130 H 140 H 141 H Respiratory 30 H 16 27 H Rate Blood Pressure 91/43 91/43 91/43 Blood Pressure [Left] O2 Sat by Pulse 100 88 93 Oximetry 09/28/21 09/28/21 09/28/21 15:30 16:00 16:10 Temperature Pulse Rate 131 H 131 H 133 H Respiratory 26 H 25 H 38 H Rate Blood Pressure 91/43 98/39 98/39 Blood Pressure [Left] O2 Sat by Pulse 99 100 99 Oximetry 09/28/21 09/28/21 09/28/21 16:20 16:30 16:40 Temperature Pulse Rate 132 H 133 H 128 H Respiratory 31 H 18 24 Rate Blood Pressure 98/39 88/41 84/46 Blood Pressure [Left] O2 Sat by Pulse 100 99 99 Oximetry 09/28/21 09/28/21 16:50 17:00 Temperature Pulse Rate 129 H 129 H Respiratory 18 14 Rate Blood Pressure 84/46 74/28 Blood Pressure [Left] O2 Sat by Pulse 97 99 Oximetry - Labs CBC & Chem 7: 10/01/21 04:53 10/01/21 04:53 Labs: Abnormal lab results 09/28/21 09/28/21 09/28/21 Range/Units 00:26 00:26 00:26 RBC 5.70 H (3.65-5.03) M/mm3 Hgb 15.6 H (11.8-15.2) gm/dl Hct 47.0 H (35.5-45.6) % MCV 83 L (84-94) fl MCH 27 L (28-32) pg RDW 16.8 H (13.2-15.2) % Lymphocytes % (Manual) 3.0 L (13.4-35.0) % Lymphocytes # (Manual) 0.3 L (1.2-5.4) K/mm3 PT (12.2-14.9) Sec. INR (0.87-1.13) VBG pH (7.320-7.420) Sodium 130 L (137-145) mmol/L Carbon Dioxide 14 L (22-30) mmol/L BUN 25 H (9-20) mg/dL Creatinine 3.8 H (0.8-1.3) mg/dL Lactic Acid 4.00 H* (0.7-2.0) mmol/L Magnesium (1.7-2.3) mg/dL AST 245 H (5-40) units/L ALT 69 H (7-56) units/L Total Creatine Kinase (55-170) units/L Albumin 3.1 L (3.9-5) g/dL Urine Creatinine (0.1-20.0) mg/dL Urine Chloride (110-250) mmolL 09/28/21 09/28/21 09/28/21 Range/Units 00:26 00:26 00:26 RBC (3.65-5.03) M/mm3 Hgb (11.8-15.2) gm/dl Hct (35.5-45.6) % MCV (84-94) fl MCH (28-32) pg RDW (13.2-15.2) % Lymphocytes % (Manual) (13.4-35.0) % Lymphocytes # (Manual) (1.2-5.4) K/mm3 PT 18.5 H (12.2-14.9) Sec. INR 1.39 H (0.87-1.13) VBG pH 7.443 H (7.320-7.420) Sodium (137-145) mmol/L Carbon Dioxide (22-30) mmol/L BUN (9-20) mg/dL Creatinine (0.8-1.3) mg/dL Lactic Acid (0.7-2.0) mmol/L Magnesium 0.90 L* (1.7-2.3) mg/dL AST (5-40) units/L ALT (7-56) units/L Total Creatine Kinase 8677 H (55-170) units/L Albumin (3.9-5) g/dL Urine Creatinine (0.1-20.0) mg/dL Urine Chloride (110-250) mmolL 09/28/21 09/28/21 09/28/21 Range/Units 02:36 14:55 15:10 RBC (3.65-5.03) M/mm3 Hgb (11.8-15.2) gm/dl Hct (35.5-45.6) % MCV (84-94) fl MCH (28-32) pg RDW (13.2-15.2) % Lymphocytes % (Manual) (13.4-35.0) % Lymphocytes # (Manual) (1.2-5.4) K/mm3 PT (12.2-14.9) Sec. INR (0.87-1.13) VBG pH (7.320-7.420) Sodium (137-145) mmol/L Carbon Dioxide (22-30) mmol/L BUN (9-20) mg/dL Creatinine (0.8-1.3) mg/dL Lactic Acid 3.90 H* 5.00 H* (0.7-2.0) mmol/L Magnesium (1.7-2.3) mg/dL AST (5-40) units/L ALT (7-56) units/L Total Creatine Kinase (55-170) units/L Albumin (3.9-5) g/dL Urine Creatinine 153.7 H (0.1-20.0) mg/dL Urine Chloride 22.1 L (110-250) mmolL
[2021-09-28] MEDS: SODIUM BICARBONATE 150 MEQ in DEXTROSE 5% IN WATER 1,000 ML IV SCH (18:03)
[2021-09-28] MEDS ORDERED: MAGNESIUM SULFATE 3 GM in SODIUM CHLORIDE 0.9% 100 ML IV ONE (18:04)
[2021-09-28 18:22] LABS: Calcium 7.4 mg/dL (8.4-10.2)
--- NOTE | 2021-09-29 00:01 | XRay Report ---
CHEST 1 VIEW 09/28/2021 11:30 PM INDICATION / CLINICAL INFORMATION: central line leaking. COMPARISON: 09/28/21 at 2:16 AM FINDINGS: SUPPORT DEVICES: Right jugular central line appears to have pulled back slightly. HEART / MEDIASTINUM: Stable. LUNGS / PLEURA: Borderline interstitial edema is unchanged. No pneumothorax. ADDITIONAL FINDINGS: No significant additional findings. IMPRESSION: 1. Right jugular central line has pulled back slightly. Tip of the central line is not definitely in the superior vena cava. Clinical correlation is needed. Signer Name: Diamond Rollins MD Signed: 09/28/2021 11:57 PM Workstation Name: [id number]
[2021-09-29] MEDS: HEPARIN 5,000 UNIT/1 ML VIAL SUB-Q SCH ×3 (00:40→22:29)
[2021-09-29] MEDS: cefTRIAXone/NS 2 GM/100 ML 2 GM/100 ML BAG IV SCH ×2 (01:23→22:36)
[2021-09-29] MEDS: SODIUM BICARBONATE 150 MEQ in DEXTROSE 5% IN WATER 1,000 ML IV SCH ×2 (02:43→19:08)
[2021-09-29] MEDS: NORepinephrine/NS 8 MG-250 ML 8 MG/250 ML INFUS..BTL IV SCH (03:47)
[2021-09-29] MEDS: ACETAMINOPHEN 325 MG TAB PO PRN ×2 (04:02→13:05)
[2021-09-29 04:56] LABS: Basophils # (Auto) 0.1 K/mm3 (0.0-0.1); Basophils % (Auto) 0.6 % (0.0-1.8); Eosinophils # (Auto) 0.3 K/mm3 (0.0-0.4); Eosinophils % (Auto) 3.2 % (0.0-4.3); Hematocrit 43.7 % (35.5-45.6); Hemoglobin 14.3 gm/dl (11.8-15.2); Lymphocytes # (Auto) 0.4 K/mm3 (1.2-5.4); Lymphocytes % (Auto) 3.4 % (13.4-35.0); Mean Corpuscular HGB Conc 33 % (32-34); Mean Corpuscular Volume 83 fl (84-94); Monocytes # (Auto) 0.3 K/mm3 (0.0-0.8); Monocytes % (Auto) 2.9 % (0.0-7.3); Platelet Count 173 K/mm3 (140-440); Red Blood Count 5.26 M/mm3 (3.65-5.03); Red Cell Distribution Width 17.3 % (13.2-15.2)
[2021-09-29 05:04] LABS: INR 1.37 (0.87-1.13)
[2021-09-29 05:15] LABS: Calcium 7.1 mg/dL (8.4-10.2)
--- NOTE | 2021-09-29 12:47 | Consultation ---
History of Present Illness Consult date: 09/29/21 Requesting physician: SUN HU Reason for consult: other (Septic Shock) History of present illness: PULMONARY/CCM CONSULT NOTE (Full dictation # [id number]) Please see dictated notes for full details Past History Past Medical History: other (Morbid Obesity) Past Surgical History: No surgical history Social history: no significant social history Family history: no significant family history Medications and Allergies Allergies Allergy/AdvReac Type Severity Reaction Status Date / Time No Known Allergies Allergy Verified 09/27/21 22:52 Active Meds: Active Medications Acetaminophen (Acetaminophen 325 Mg Tab) 650 mg PO Q6H PRN PRN Reason: Pain MILD(1-3)/Fever >100.5/BARRY Last Admin: 09/29/21 04:02 Dose: 650 mg Documented by: Heparin Sodium (Porcine) (Heparin 5,000 Unit/1 Ml Vial) 5,000 unit SUB-Q Q8HR LUZ Last Admin: 09/29/21 00:40 Dose: 5,000 unit Documented by: Ceftriaxone Sodium (Rocephin/Ns 2 Gm/100 Ml) 2 gm in 100 mls @ 200 mls/hr IV Q24H LUZ; Protocol Last Admin: 09/29/21 01:23 Dose: 200 mls/hr Documented by: NORepinephrine/NS 8 MG-250 ML (Norepinephrine/Ns 8 Mg-250 Ml (Double Conc)) 8 mg in 250 mls @ 3.75 mls/hr IV TITRATE LUZ; Protocol Last Admin: 09/29/21 03:47 Dose: 1.07 mcg/min, 2 mls/hr Documented by: Sodium Bicarbonate 150 meq/ (Dextrose) 1,150 mls @ 125 mls/hr IV DIRECT LUZ Last Admin: 09/29/21 02:43 Dose: 125 mls/hr Documented by: Magnesium Hydroxide (Magnesium Hydroxide (Mom) Oral Liqd Udc) 30 ml PO Q4H PRN PRN Reason: Constipation Morphine Sulfate (Morphine 2 Mg/1 Ml Inj) 2 mg IV Q4H PRN PRN Reason: Pain, Moderate (4-6) Morphine Sulfate (Morphine 4 Mg/1 Ml Inj) 4 mg IV Q4H PRN PRN Reason: Pain , Severe (7-10) Ondansetron HCl (Ondansetron 4 Mg/2 Ml Inj) 4 mg IV Q8H PRN PRN Reason: Nausea And Vomiting Sodium Chloride (Sodium Chloride 0.9% 10 Ml Flush Syringe) 10 ml IV BID LUZ Last Admin: 09/29/21 09:21 Dose: Not Given Documented by: Sodium Chloride (Sodium Chloride 0.9% 10 Ml Flush Syringe) 10 ml IV PRN PRN PRN Reason: LINE FLUSH Physical Examination Vital signs: Vital Signs Temp Pulse Resp BP Pulse Ox 98.3 F 130 H 20 92/60 97 09/27/21 22:50 09/27/21 22:50 09/27/21 22:50 09/27/21 22:50 09/27/21 22:50 Results - Laboratory Findings CBC and BMP: 09/29/21 04:35 09/29/21 04:35 PT/INR, D-dimer PT 18.3 Sec. (12.2-14.9) H 09/29/21 04:35 INR 1.37 (0.87-1.13) H 09/29/21 04:35 Abnormal lab findings: Abnormal Labs 09/28/21 09/28/21 09/28/21 00:26 00:26 00:26 RBC 5.70 H Hgb 15.6 H Hct 47.0 H MCV 83 L MCH 27 L RDW 16.8 H Lymph % (Auto) Lymph # (Auto) Seg Neutrophils % Lymphocytes % (Manual) 3.0 L Seg Neutrophils # Lymphocytes # (Manual) 0.3 L PT INR VBG pH Sodium 130 L Carbon Dioxide 14 L BUN 25 H Creatinine 3.8 H Glucose Lactic Acid 4.00 H* Calcium Magnesium AST 245 H ALT 69 H Total Creatine Kinase Albumin 3.1 L Urine Creatinine Urine Chloride 09/28/21 09/28/21 09/28/21 00:26 00:26 00:26 RBC Hgb Hct MCV MCH RDW Lymph % (Auto) Lymph # (Auto) Seg Neutrophils % Lymphocytes % (Manual) Seg Neutrophils # Lymphocytes # (Manual) PT 18.5 H INR 1.39 H VBG pH 7.443 H Sodium Carbon Dioxide BUN Creatinine Glucose Lactic Acid Calcium Magnesium 0.90 L* AST ALT Total Creatine Kinase 8677 H Albumin Urine Creatinine Urine Chloride 09/28/21 09/28/21 09/28/21 02:36 14:55 15:10 RBC Hgb Hct MCV MCH RDW Lymph % (Auto) Lymph # (Auto) Seg Neutrophils % Lymphocytes % (Manual) Seg Neutrophils # Lymphocytes # (Manual) PT INR VBG pH Sodium Carbon Dioxide BUN Creatinine Glucose Lactic Acid 3.90 H* 5.00 H* Calcium Magnesium AST ALT Total Creatine Kinase Albumin Urine Creatinine 153.7 H Urine Chloride 22.1 L 09/28/21 09/29/21 09/29/21 17:51 01:02 04:35 RBC 5.26 H Hgb Hct MCV 83 L MCH 27 L RDW 17.3 H Lymph % (Auto) 3.4 L Lymph # (Auto) 0.4 L Seg Neutrophils % 89.9 H Lymphocytes % (Manual) Seg Neutrophils # 9.3 H Lymphocytes # (Manual) PT INR VBG pH Sodium 134 L Carbon Dioxide 16 L BUN 35 H Creatinine 3.5 H Glucose 69 L Lactic Acid 3.20 H* Calcium 7.4 L Magnesium AST ALT Total Creatine Kinase Albumin Urine Creatinine Urine Chloride 09/29/21 09/29/21 09/29/21 04:35 04:35 04:35 RBC Hgb Hct MCV MCH RDW Lymph % (Auto) Lymph # (Auto) Seg Neutrophils % Lymphocytes % (Manual) Seg Neutrophils # Lymphocytes # (Manual) PT 18.3 H INR 1.37 H VBG pH Sodium 136 L Carbon Dioxide 19 L BUN 34 H Creatinine 3.0 H Glucose Lactic Acid 5.00 H* Calcium 7.1 L Magnesium AST ALT Total Creatine Kinase Albumin Urine Creatinine Urine Chloride 09/29/21 09/29/21 04:35 10:36 RBC Hgb Hct MCV MCH RDW Lymph % (Auto) Lymph # (Auto) Seg Neutrophils % Lymphocytes % (Manual) Seg Neutrophils # Lymphocytes # (Manual) PT INR VBG pH Sodium Carbon Dioxide BUN Creatinine Glucose Lactic Acid 4.30 H* Calcium Magnesium AST ALT Total Creatine Kinase 31790 H Albumin Urine Creatinine Urine Chloride
--- NOTE | 2021-09-29 12:57 | Progress Note ---
<HERMELINDA BARRERA - Last Filed: 09/29/21 16:27> Assessment and Plan Assessment and plan: This is a 53-[id number]-wkw AA male with past medical history of morbid obesity, lymphedema of the right lower extremity [facility] with complaints of generalized weakness and RLE pain. Patient was found to be septic secondary to RLE cellulitis, with hypotension, and tachycardia requiring pressors. Patient was admitted to the ICU for further management. Hospital Course to Date: 09/29/21- Patient is off pressors this am, remains slightly tachycardic on a bcarb gtt. Patient remains febrile with worsening Lactic acidosis, WBCs wnl. Continue current IV ABx regimen, ID consulted for RLE cellulitis and fever. Will continue to trend lactic acid and fever curve. Assessment and Plan #Sepsis #Hypotensioln #Tachycardia #Cardiomegaly - Patient remains ST on the monitor - S/p sepsis bolus in the ED - Off pressors this am - CXR with mild cardiomegaly, increased pulmonary edema and interstitial edema - 2D echo ordered - Maintain adequate perfusion - Continue rehydration with cont. IVF - Continue blood pressure monitor per protocol - Maintain MAP above 65 - Continue AC- Hep SubQ #Rhabdomyolysis #Elevated creatine [place] [address] - Continue rehydration with cont. IVF - will continue to trend CK #Nausea - Persistent nausea with no vomiting - Tolerating diet - Continue PPI- Pepcid - Continue PRN BR - PRN antiemetic for N/V #Acute kidney injury (SAL) most likely ATN #Hypomagnesemia- improved - Baseline cr. unknown, Cr. as high as 3.8 - Cr. is 3.0 this am - 09/29 FENa 0.8%, pre-renal - Mg 1.8 this am - Nephrology on consult, appreciated recommendation - Strict intake and output - Avoid nephrotoxic medications; Renally dose medications - Net 1.1L in last 24hrs - Continue IVF for now - Monitor and replace electrolytes as needed #Sepsis 2/2 RLE Cellulitis #Lactic Acidosis #LE Lymphema - 09/28 RLE US shows no evidence of DVT - 09/[address] shows right lower extremity cellulitis. Reactive adenopathy in the proximal right thigh right groin and right hemipelvis - Lactic trending up, 5 this am - Febrile- TMAX 103.1, WBc wnl - 09/28 B.cultX2 pending - Received Vanco in the - ID consulted, pending recommendations - Continue rehydration with cont. IVF - Continue empiric ABx- Rocephin - Continue to F/U on B.cult - Monitor CBCs and fever curve - Continue to trend lactic acid #Endo:Hypoglycemia - Probably due to NPO status - On a diet now - Will check POCT ACHS for now - Continue current IVF - Avoid hypoglycemia - Hypoglycemia protocol initiated The high probability of a clinically significant, sudden or life threatening deterioration of the [multiple] system(s) required my full and direct attention, intervention and personal management. The aggregate critical care time was [60] minutes. This time is in addition to time spent performing reported procedures but includes the following: [x] Data Review and interpretation [x] Patient assessment and monitoring of vital signs [x] Documentation [x] Medication orders and management Disposition Plan: ICU Total Time Spent with Patient (Minutes): 60 History Interval history: Patient seen and examined at the bedside. AAO, on RA, denied any pain nor discomfort. Off pressors this am, remains on bcarb gtt. PELON overnight Hospitalist Physical - Constitutional Vitals: Temp Pulse Resp BP Pulse Ox 100.0 F H 117 H 23 88/64 100 09/29/21 12:16 09/29/21 12:20 09/29/21 12:20 09/29/21 12:20 09/29/21 12:20 General appearance: Present: no acute distress, well-nourished, obese - EENT Eyes: Present: PERRL, EOM intact ENT: hearing intact, clear oral mucosa - Neck Neck: Present: normal ROM - Respiratory Respiratory effort: normal Respiratory: bilateral: diminished - Cardiovascular Rhythm: regular Heart Sounds: Present: S1 & S2 - Extremities Extremities: no ischemia, pulses intact, pulses symmetrical Extremity abnormal: edema - Peripheral Assessment Right Lower Extremity Edema Type: Non-pitting Edema Degree: 4+ Capillary Refill: < 3 seconds Skin Temperature: Warm Generalized Edema Type: Non-pitting Edema Degree: 1+ Capillary Refill: < 3 seconds Skin Temperature: Warm Peripheral Pulses: within normal limits - Abdominal General gastrointestinal: soft, non-tender, normal bowel sounds - Integumentary Integumentary: Present: warm, dry - Psychiatric Psychiatric: cooperative - Neurologic Neurologic: CNII-XII intact, moves all extremities - Allied Health Allied health notes reviewed: nursing Results - Labs CBC & Chem 7: 09/29/21 04:35 09/29/21 04:35 Labs: Laboratory Last Values WBC 10.4 K/mm3 (4.5-11.0) 09/29/21 04:35 RBC 5.26 M/mm3 (3.65-5.03) H 09/29/21 04:35 Hgb 14.3 gm/dl (11.8-15.2) 09/29/21 04:35 Hct 43.7 % (35.5-45.6) 09/29/21 04:35 MCV 83 fl (84-94) L 09/29/21 04:35 MCH 27 pg (28-32) L 09/29/21 04:35 MCHC 33 % (32-34) 09/29/21 04:35 RDW 17.3 % (13.2-15.2) H 09/29/21 04:35 Plt Count 173 K/mm3 (140-440) 09/29/21 04:35 Lymph % (Auto) 3.4 % (13.4-35.0) L 09/29/21 04:35 [place] % (Auto) 2.9 % (0.0-7.3) 09/29/21 04:35 Eos % (Auto) 3.2 % (0.0-4.3) 09/29/21 04:35 Baso % (Auto) 0.6 % (0.0-1.8) 09/29/21 04:35 Lymph # (Auto) 0.4 K/mm3 (1.2-5.4) L 09/29/21 04:35 [place] # (Auto) 0.3 K/mm3 (0.0-0.8) 09/29/21 04:35 Eos # (Auto) 0.3 K/mm3 (0.0-0.4) 09/29/21 04:35 Baso # (Auto) 0.1 K/mm3 (0.0-0.1) 09/29/21 04:35 Add Manual Diff Complete 09/28/21 00:26 Total Counted 100 09/28/21 00:26 Seg Neutrophils % 89.9 % (40.0-70.0) H 09/29/21 04:35 Seg Neuts % (Manual) 62.0 % (40.0-70.0) 09/28/21 00:26 Band Neutrophils % 30.0 % 09/28/21 00:26 Lymphocytes % (Manual) 3.0 % (13.4-35.0) L 09/28/21 00:26 Monocytes % (Manual) 2.0 % (0.0-7.3) 09/28/21 00:26 Metamyelocytes % 3.0 % 09/28/21 00:26 Nucleated RBC % Not Reportable 09/28/21 00:26 Seg Neutrophils # 9.3 K/mm3 (1.8-7.7) H 09/29/21 04:35 Seg Neutrophils # Man 6.6 K/mm3 (1.8-7.7) 09/28/21 00:26 Band Neutrophils # 3.2 K/mm3 09/28/21 00:26 Lymphocytes # (Manual) 0.3 K/mm3 (1.2-5.4) L 09/28/21 00:26 Abs React Lymphs (Man) 0.0 K/mm3 09/28/21 00:26 Monocytes # (Manual) 0.2 K/mm3 (0.0-0.8) 09/28/21 00:26 Eosinophils # (Manual) 0.0 K/mm3 (0.0-0.4) 09/28/21 00:26 Basophils # (Manual) 0.0 K/mm3 (0.0-0.1) 09/28/21 00:26 Metamyelocytes # 0.3 K/mm3 09/28/21 00:26 Myelocytes # 0.0 K/mm3 09/28/21 00:26 Promyelocytes # 0.0 K/mm3 09/28/21 00:26 Blast Cells # 0.0 K/mm3 09/28/21 00:26 WBC Morphology Not Reportable 09/28/21 00:26 Hypersegmented Neuts Not Reportable 09/28/21 00:26 Hyposegmented Neuts Not Reportable 09/28/21 00:26 Hypogranular Neuts Not Reportable 09/28/21 00:26 Smudge Cells Not Reportable 09/28/21 00:26 Toxic Granulation Not Reportable 09/28/21 00:26 Toxic Vacuolation Not Reportable 09/28/21 00:26 Dohle Bodies Not Reportable 09/28/21 00:26 Pelger-Huet Anomaly Not Reportable 09/28/21 00:26 Angelo Rods Not Reportable 09/28/21 00:26 Platelet Estimate Consistent w auto 09/28/21 00:26 Clumped Platelets Not Reportable 09/28/21 00:26 Plt Clumps, EDTA Not Reportable 09/28/21 00:26 Large Platelets Not Reportable 09/28/21 00:26 Giant Platelets Not Reportable 09/28/21 00:26 Platelet Satelliting Not Reportable 09/28/21 00:26 Plt Morphology Comment Not Reportable 09/28/21 00:26 RBC Morphology Normal 09/28/21 00:26 Dimorphic RBCs Not Reportable 09/28/21 00:26 Polychromasia Not Reportable 09/28/21 00:26 Hypochromasia Not Reportable 09/28/21 00:26 Poikilocytosis Not Reportable 09/28/21 00:26 Anisocytosis Not Reportable 09/28/21 00:26 Microcytosis Not Reportable 09/28/21 00:26 Macrocytosis Not Reportable 09/28/21 00:26 Spherocytes Not Reportable 09/28/21 00:26 Pappenheimer Bodies Not Reportable 09/28/21 00:26 Sickle Cells Not Reportable 09/28/21 00:26 Target Cells Not Reportable 09/28/21 00:26 Tear Drop Cells Not Reportable 09/28/21 00:26 Ovalocytes Not Reportable 09/28/21 00:26 Helmet Cells Not Reportable 09/28/21 00:26 [place] Bodies Not Reportable 09/28/21 00:26 [place] Rings Not Reportable 09/28/21 00:26 Tl Cells Not Reportable 09/28/21 00:26 Bite Cells Not Reportable 09/28/21 00:26 Crenated Cell Not Reportable 09/28/21 00:26 Elliptocytes Not Reportable 09/28/21 00:26 Acanthocytes (Spur) Not Reportable 09/28/21 00:26 Rouleaux Not Reportable 09/28/21 00:26 Hemoglobin C Crystals Not Reportable 09/28/21 00:26 Schistocytes Not Reportable 09/28/21 00:26 Malaria parasites Not Reportable 09/28/21 00:26 Dav Bodies Not Reportable 09/28/21 00:26 Hem Pathologist Commnt No 09/28/21 00:26 PT 18.3 Sec. (12.2-14.9) H 09/29/21 04:35 INR 1.37 (0.87-1.13) H 09/29/21 04:35 VBG pH 7.443 (7.320-7.420) H 09/28/21 00:26 Sodium 136 mmol/L (137-145) L 09/29/21 04:35 Potassium 4.1 mmol/L (3.6-5.0) 09/29/21 04:35 Chloride 102.2 mmol/L (98-107) 09/29/21 04:35 Carbon Dioxide 19 mmol/L (22-30) L 09/29/21 04:35 Anion Gap 19 mmol/L 09/29/21 04:35 BUN 34 mg/dL (9-20) H 09/29/21 04:35 Creatinine 3.0 mg/dL (0.8-1.3) H 09/29/21 04:35 Estimated GFR 28 ml/min 09/29/21 04:35 BUN/Creatinine Ratio 11 % 09/29/21 04:35 Glucose 79 mg/dL (75-100) 09/29/21 04:35 Lactic Acid 4.30 mmol/L (0.7-2.0) H* 09/29/21 10:36 Calcium 7.1 mg/dL (8.4-10.2) L 09/29/21 04:35 Magnesium 1.80 mg/dL (1.7-2.3) 09/29/21 04:35 Total Bilirubin 0.60 mg/dL (0.1-1.2) 09/28/21 00:26 AST 245 units/L (5-40) H 09/28/21 00:26 ALT 69 units/L (7-56) H 09/28/21 00:26 Alkaline Phosphatase 47 units/L (35-129) 09/28/21 00:26 Total Creatine Kinase 19356 units/L (55-170) H 09/29/21 04:35 Total Protein 7.3 g/dL (6.3-8.2) 09/28/21 00:26 Albumin 3.1 g/dL (3.9-5) L 09/28/21 00:26 Albumin/Globulin Ratio 0.7 % 09/28/21 00:26 TSH 3.700 mlU/mL (0.270-4.200) 09/28/21 00:26 Urine Color Yellow (Yellow) 09/28/21 15:10 Urine Turbidity Slightly-cloudy (Clear) 09/28/21 15:10 Urine pH 5.0 (5.0-7.0) 09/28/21 15:10 Ur Specific [place] 1.011 (1.003-1.030) 09/28/21 15:10 Urine Protein 30 mg/dl mg/dL (Negative) 09/28/21 15:10 Urine Glucose (UA) Neg mg/dL (Negative) 09/28/21 15:10 Urine Ketones Neg mg/dL (Negative) 09/28/21 15:10 Urine Blood Lg (Negative) 09/28/21 15:10 Urine Nitrite Neg (Negative) 09/28/21 15:10 Urine Bilirubin Neg (Negative) 09/28/21 15:10 Urine Urobilinogen < 2.0 mg/dL (<2.0) 09/28/21 15:10 Ur Leukocyte Esterase Neg (Negative) 09/28/21 15:10 Urine WBC (Auto) 6.0 /HPF (0.0-6.0) 09/28/21 15:10 Urine RBC (Auto) 1.0 /HPF (0.0-6.0) 09/28/21 15:10 U Epithel Cells (Auto) 1.0 /HPF (0-13.0) 09/28/21 15:10 Urine Bacteria (Auto) 1+ /HPF (Negative) 09/28/21 15:10 Urine Mucus Few /HPF 09/28/21 15:10 Urine Yeast (Budding) Few /HPF 09/28/21 15:10 Urine Creatinine 153.7 mg/dL (0.1-20.0) H 09/28/21 15:10 Urine Sodium 58 mmol/L 09/28/21 15:10 Urine Chloride 22.1 mmolL (110-250) L 09/28/21 15:10 Microbiology: Microbiology 09/28/21 00:26 Peripheral/Venous Blood Culture - Preliminary NO GROWTH AFTER 24 HOURS 09/28/21 00:26 Peripheral/Venous Blood Culture - Preliminary NO GROWTH AFTER 24 HOURS Valdez/IV: Voiding Method Urinal Active Medications - Current Medications Current Medications: Generic Name Dose Route Start Last Admin Trade Name Freq PRN Reason Stop Dose Admin Acetaminophen 650 mg 09/28/21 02:56 09/29/21 04:02 Acetaminophen 325 Mg Tab PO 650 mg Q6H PRN Administration Pain MILD(1-3)/Fever >100.5/BARRY Heparin Sodium (Porcine) 5,000 unit 09/28/21 14:00 09/29/21 00:40 Heparin 5,000 Unit/1 Ml Vial SUB-Q 5,000 unit Q8HR LUZ Administration Ceftriaxone Sodium 2 gm in 100 mls @ 200 mls/hr 09/28/21 22:00 09/29/21 01:23 Rocephin/Ns 2 Gm/100 Ml IV 200 mls/hr Q24H LUZ Administration Protocol NORepinephrine/NS 8 MG-250 ML 8 mg in 250 mls @ 3.75 mls/hr 09/28/21 17:00 09/29/21 03:47 Norepinephrine/Ns 8 Mg-250 Ml (Double Conc) IV 1.07 mcg/min TITRATE LUZ 2 mls/hr Administration Protocol 2 MCG/MIN Sodium Bicarbonate 150 meq/ 1,150 mls @ 125 mls/hr 09/28/21 18:00 09/29/21 02:43 Dextrose IV 125 mls/hr DIRECT LUZ Administration Magnesium Hydroxide 30 ml 09/28/21 02:56 Magnesium Hydroxide (Mom) Oral Liqd Udc PO Q4H PRN Constipation Morphine Sulfate 2 mg 09/28/21 02:56 Morphine 2 Mg/1 Ml Inj IV Q4H PRN Pain, Moderate (4-6) Morphine Sulfate 4 mg 09/28/21 02:56 Morphine 4 Mg/1 Ml Inj IV Q4H PRN Pain , Severe (7-10) Ondansetron HCl 4 mg 09/28/21 02:56 Ondansetron 4 Mg/2 Ml Inj IV Q8H PRN Nausea And Vomiting Sodium Chloride 10 ml 09/28/21 10:00 09/29/21 09:21 Sodium Chloride 0.9% 10 Ml Flush Syringe IV Not Given BID LUZ Sodium Chloride 10 ml 09/28/21 02:56 Sodium Chloride 0.9% 10 Ml Flush Syringe IV PRN PRN LINE FLUSH Nutrition/Malnutrition Assess - Dietary Evaluation Nutrition/Malnutrition Findings: Nutrition Notes Start: 09/28/21 15:21 Freq: Status: Active Protocol: Document 09/28/21 15:21 GB (Rec: 09/28/21 15:44 GB [id number]) Nutrition Notes Need for Assessment generated from: MD Order,Education Initial or Follow up Assessment Current Diagnosis Sepsis Other Pertinent Diagnosis morbid obesity, lymphedema RLE , generalized weakness Current Diet cardiac Labs/Tests 09/28: BUN 25, creatinine 3.8, Na 130, AST 245, ALT 69, Mg 0. 9 Pertinent Medications reviewed Height 6 ft 1 in Weight 158.757 kg Paul Body Weight (kg) 83.63 BMI 46.1 Intake Prior to Admission Good Weight change and time frame No reported weight change upon admission. Admit weight recorded. Weight Status Morbidly Obese Subjective/Other Information MD consult for diet education. RN note: pt provided with two trays at breakfast BM 09/28. Percent of energy/protein needs met: unable to assess at this time. Pt recently admitted. Burn Absent Trauma Absent GI Symptoms None Food Allergy No Skin Integrity/Comment lymphedema RLE Current % PO Good (75-100%) Minimum of two criteria No #1 Nutrition Diagnosis No nutrition diagnosis at this time Comments: MD order for Diet education. 190% IBW, BMI 46 Is patient on ventilator? No Is Patient Ambulatory and/or Out of Bed Yes REE-([facility]-ambulatory/OOB) [ 3290.885 [id number]] Kcal/Kg value to use for calculation 15 Approximate Energy Requirements Using 2381 kcal/Kg Calculation Used for Recommendations Kcal/kg Additional Notes Protein: 0.6-0.8 g/kg @ 159k-127g Fluids: 1 ml/kcal or per MD Nutrition Intervention Change Diet Order: Continue Cardiac Nutrition Support: n/a Add Supplement/Snack (indicate name/kcal n/a /protein ) Teaching Recipient Patient Teaching Methods Handout Education Handouts Provided Provide/review: General Healthy Nutrition packet w/ tips for weight management on f/u and/or when admitted to floor. Goal #1 PO intake of meals to be 75% or greater daily for LOS Goal #2 Provide/review: General Healthy Nutrition packet w/ tips for weight management on f/u and/or when admitted to floor. Follow-Up By: 10/01/21 Additional Comments f/u: Provide/review: General Healthy Nutrition packet w/ tips for weight management <JUAQUIN HARRIS R - Last Filed: 10/01/21 14:19> Assessment and Plan Assessment and plan: I saw and evaluated the patient on 09/29/21. I agree with the findings and the plan of care as documented in the Nurse Practitioner's~note, Hospitalist Physical - Constitutional Vitals: Temp Pulse Resp BP Pulse Ox 97.0 F L 104 H 18 94/49 96 10/01/21 11:59 10/01/21 11:59 10/01/21 11:59 10/01/21 11:59 10/01/21 11:59 Results - Labs CBC & Chem 7: 10/01/21 04:53 10/01/21 04:53 Labs: Laboratory Last Values WBC 13.0 K/mm3 (4.5-11.0) H 10/01/21 04:53 RBC 5.11 M/mm3 (3.65-5.03) H 10/01/21 04:53 Hgb 13.4 gm/dl (11.8-15.2) 10/01/21 04:53 Hct 41.7 % (35.5-45.6) 10/01/21 04:53 MCV 82 fl (84-94) L 10/01/21 04:53 MCH 26 pg (28-32) L 10/01/21 04:53 MCHC 32 % (32-34) 10/01/21 04:53 RDW 17.5 % (13.2-15.2) H 10/01/21 04:53 Plt Count 154 K/mm3 (140-440) 10/01/21 04:53 Lymph % (Auto) 3.4 % (13.4-35.0) L 09/29/21 04:35 [place] % (Auto) 2.9 % (0.0-7.3) 09/29/21 04:35 Eos % (Auto) 3.2 % (0.0-4.3) 09/29/21 04:35 Baso % (Auto) 0.6 % (0.0-1.8) 09/29/21 04:35 Lymph # (Auto) 0.4 K/mm3 (1.2-5.4) L 09/29/21 04:35 [place] # (Auto) 0.3 K/mm3 (0.0-0.8) 09/29/21 04:35 Eos # (Auto) 0.3 K/mm3 (0.0-0.4) 09/29/21 04:35 Baso # (Auto) 0.1 K/mm3 (0.0-0.1) 09/29/21 04:35 Add Manual Diff Complete 09/28/21 00:26 Total Counted 100 09/28/21 00:26 Seg Neutrophils % 89.9 % (40.0-70.0) H 09/29/21 04:35 Seg Neuts % (Manual) 62.0 % (40.0-70.0) 09/28/21 00:26 Band Neutrophils % 30.0 % 09/28/21 00:26 Lymphocytes % (Manual) 3.0 % (13.4-35.0) L 09/28/21 00:26 Monocytes % (Manual) 2.0 % (0.0-7.3) 09/28/21 00:26 Metamyelocytes % 3.0 % 09/28/21 00:26 Nucleated RBC % Not Reportable 09/28/21 00:26 Seg Neutrophils # 9.3 K/mm3 (1.8-7.7) H 09/29/21 04:35 Seg Neutrophils # Man 6.6 K/mm3 (1.8-7.7) 09/28/21 00:26 Band Neutrophils # 3.2 K/mm3 09/28/21 00:26 Lymphocytes # (Manual) 0.3 K/mm3 (1.2-5.4) L 09/28/21 00:26 Abs React Lymphs (Man) 0.0 K/mm3 09/28/21 00:26 Monocytes # (Manual) 0.2 K/mm3 (0.0-0.8) 09/28/21 00:26 Eosinophils # (Manual) 0.0 K/mm3 (0.0-0.4) 09/28/21 00:26 Basophils # (Manual) 0.0 K/mm3 (0.0-0.1) 09/28/21 00:26 Metamyelocytes # 0.3 K/mm3 09/28/21 00:26 Myelocytes # 0.0 K/mm3 09/28/21 00:26 Promyelocytes # 0.0 K/mm3 09/28/21 00:26 Blast Cells # 0.0 K/mm3 09/28/21 00:26 WBC Morphology Not Reportable 09/28/21 00:26 Hypersegmented Neuts Not Reportable 09/28/21 00:26 Hyposegmented Neuts Not Reportable 09/28/21 00:26 Hypogranular Neuts Not Reportable 09/28/21 00:26 Smudge Cells Not Reportable 09/28/21 00:26 Toxic Granulation Not Reportable 09/28/21 00:26 Toxic Vacuolation Not Reportable 09/28/21 00:26 Dohle Bodies Not Reportable 09/28/21 00:26 Pelger-Huet Anomaly Not Reportable 09/28/21 00:26 Angelo Rods Not Reportable 09/28/21 00:26 Platelet Estimate Consistent w auto 09/28/21 00:26 Clumped Platelets Not Reportable 09/28/21 00:26 Plt Clumps, EDTA Not Reportable 09/28/21 00:26 Large Platelets Not Reportable 09/28/21 00:26 Giant Platelets Not Reportable 09/28/21 00:26 Platelet Satelliting Not Reportable 09/28/21 00:26 Plt Morphology Comment Not Reportable 09/28/21 00:26 RBC Morphology Normal 09/28/21 00:26 Dimorphic RBCs Not Reportable 09/28/21 00:26 Polychromasia Not Reportable 09/28/21 00:26 Hypochromasia Not Reportable 09/28/21 00:26 Poikilocytosis Not Reportable 09/28/21 00:26 Anisocytosis Not Reportable 09/28/21 00:26 Microcytosis Not Reportable 09/28/21 00:26 Macrocytosis Not Reportable 09/28/21 00:26 Spherocytes Not Reportable 09/28/21 00:26 Pappenheimer Bodies Not Reportable 09/28/21 00:26 Sickle Cells Not Reportable 09/28/21 00:26 Target Cells Not Reportable 09/28/21 00:26 Tear Drop Cells Not Reportable 09/28/21 00:26 Ovalocytes Not Reportable 09/28/21 00:26 Helmet Cells Not Reportable 09/28/21 00:26 [place] Bodies Not Reportable 09/28/21 00:26 [place] Rings Not Reportable 09/28/21 00:26 Tl Cells Not Reportable 09/28/21 00:26 Bite Cells Not Reportable 09/28/21 00:26 Crenated Cell Not Reportable 09/28/21 00:26 Elliptocytes Not Reportable 09/28/21 00:26 Acanthocytes (Spur) Not Reportable 09/28/21 00:26 Rouleaux Not Reportable 09/28/21 00:26 Hemoglobin C Crystals Not Reportable 09/28/21 00:26 Schistocytes Not Reportable 09/28/21 00:26 Malaria parasites Not Reportable 09/28/21 00:26 Dav Bodies Not Reportable 09/28/21 00:26 Hem Pathologist Commnt No 09/28/21 00:26 PT 15.6 Sec. (12.2-14.9) H 09/30/21 13:58 INR 1.12 (0.87-1.13) 09/30/21 13:58 APTT 32.1 Sec. (24.2-36.6) 09/30/21 13:58 VBG pH 7.443 (7.320-7.420) H 09/28/21 00:26 Sodium 138 mmol/L (137-145) 10/01/21 04:53 Potassium 3.4 mmol/L (3.6-5.0) L 10/01/21 04:53 Chloride 99.8 mmol/L (98-107) 10/01/21 04:53 Carbon Dioxide 25 mmol/L (22-30) 10/01/21 04:53 Anion Gap 17 mmol/L 10/01/21 04:53 BUN 24 mg/dL (9-20) H 10/01/21 04:53 Creatinine 1.2 mg/dL (0.8-1.3) 10/01/21 04:53 Estimated GFR > 60 ml/min 10/01/21 04:53 BUN/Creatinine Ratio 20 % 10/01/21 04:53 Glucose 114 mg/dL (75-100) H 10/01/21 04:53 POC Glucose 110 mg/dL (70-105) H 10/01/21 11:59 Lactic Acid 2.20 mmol/L (0.7-2.0) H* 10/01/21 04:53 Calcium 6.8 mg/dL (8.4-10.2) L 10/01/21 04:53 Phosphorus 1.90 mg/dL (2.5-4.5) L 09/30/21 05:30 Magnesium 2.20 mg/dL (1.7-2.3) 09/30/21 05:30 Total Bilirubin 0.60 mg/dL (0.1-1.2) 09/30/21 05:30 AST 194 units/L (5-40) H 09/30/21 05:30 ALT 92 units/L (7-56) H 09/30/21 05:30 Alkaline Phosphatase 73 units/L (35-129) 09/30/21 05:30 Total Creatine Kinase 6636 units/L (55-170) H 09/30/21 05:30 C-Reactive Protein 34.20 mg/dL (0.00-1.30) H 09/29/21 14:34 NT-Pro-B Natriuret Pep 689.6 pg/mL (0-450) H 09/29/21 10:36 Total Protein 6.5 g/dL (6.3-8.2) 09/30/21 05:30 Albumin 2.1 g/dL (3.9-5) L 09/30/21 05:30 Albumin/Globulin Ratio 0.5 % 09/30/21 05:30 Procalcitonin 66.44 ng/mL (<0.15) 09/29/21 14:34 TSH 3.700 mlU/mL (0.270-4.200) 09/28/21 00:26 Urine Color Yellow (Yellow) 09/28/21 15:10 Urine Turbidity Slightly-cloudy (Clear) 09/28/21 15:10 Urine pH 5.0 (5.0-7.0) 09/28/21 15:10 Ur Specific [place] 1.011 (1.003-1.030) 09/28/21 15:10 Urine Protein 30 mg/dl mg/dL (Negative) 09/28/21 15:10 Urine Glucose (UA) Neg mg/dL (Negative) 09/28/21 15:10 Urine Ketones Neg mg/dL (Negative) 09/28/21 15:10 Urine Blood Lg (Negative) 09/28/21 15:10 Urine Nitrite Neg (Negative) 09/28/21 15:10 Urine Bilirubin Neg (Negative) 09/28/21 15:10 Urine Urobilinogen < 2.0 mg/dL (<2.0) 09/28/21 15:10 Ur Leukocyte Esterase Neg (Negative) 09/28/21 15:10 Urine WBC (Auto) 6.0 /HPF (0.0-6.0) 09/28/21 15:10 Urine RBC (Auto) 1.0 /HPF (0.0-6.0) 09/28/21 15:10 U Epithel Cells (Auto) 1.0 /HPF (0-13.0) 09/28/21 15:10 Urine Bacteria (Auto) 1+ /HPF (Negative) 09/28/21 15:10 Urine Mucus Few /HPF 09/28/21 15:10 Urine Yeast (Budding) Few /HPF 09/28/21 15:10 Urine Creatinine 153.7 mg/dL (0.1-20.0) H 09/28/21 15:10 Urine Sodium 58 mmol/L 09/28/21 15:10 Urine Chloride 22.1 mmolL (110-250) L 09/28/21 15:10 Random Vancomycin 4.0 ug/mL (0-40.0) 09/30/21 05:30 Coronavirus (PCR) Negative (Negative) 09/29/21 Unknown Microbiology: Microbiology 09/28/21 00:26 Peripheral/Venous Blood Culture - Preliminary NO GROWTH AFTER 72 HOURS 09/28/21 00:26 Peripheral/Venous Blood Culture - Preliminary NO GROWTH AFTER 72 HOURS Valdez/IV: Voiding Method Urinal Active Medications - Current Medications Current Medications: Generic Name Dose Route Start Last Admin Trade Name Freq PRN Reason Stop Dose Admin Acetaminophen 650 mg 09/28/21 02:56 09/30/21 20:35 Acetaminophen 325 Mg Tab PO 650 mg Q6H PRN Administration Pain MILD(1-3)/Fever >100.5/BARRY Apixaban 2.5 mg 09/30/21 22:00 10/01/21 10:49 Apixaban 2.5 Mg Tab PO 2.5 mg Q12HR LUZ Administration Protocol Dextrose 50 ml 09/29/21 17:00 Dextrose 50% In Water (25gm) 50 Ml Syringe IV Q30MIN PRN Hypoglycemia Protocol Famotidine 20 mg 09/29/21 22:00 09/30/21 22:23 Famotidine 20 Mg Tab PO 20 mg QHS LUZ Administration Ceftriaxone Sodium 2 gm in 100 mls @ 200 mls/hr 09/28/21 22:00 09/30/21 22:24 Rocephin/Ns 2 Gm/100 Ml IV 200 mls/hr Q24H LUZ Administration Protocol Sodium Bicarbonate 150 meq/ 1,150 mls @ 125 mls/hr 09/28/21 18:00 09/30/21 22:25 Dextrose IV 125 mls/hr DIRECT LUZ Administration Vancomycin HCl 2,000 mg/ 540 mls @ 250 mls/hr 10/01/21 14:00 Sodium Chloride IV Q24H LUZ Magnesium Hydroxide 30 ml 09/28/21 02:56 Magnesium Hydroxide (Mom) Oral Liqd Udc PO Q4H PRN Constipation Morphine Sulfate 2 mg 09/28/21 02:56 09/30/21 20:48 Morphine 2 Mg/1 Ml Inj IV 2 mg Q4H PRN Administration Pain, Moderate (4-6) Ondansetron HCl 4 mg 09/28/21 02:56 09/30/21 20:48 Ondansetron 4 Mg/2 Ml Inj IV 4 mg Q8H PRN Administration Nausea And Vomiting Sodium Chloride 10 ml 09/28/21 10:00 10/01/21 10:49 Sodium Chloride 0.9% 10 Ml Flush Syringe IV 10 ml BID LUZ Administration Sodium Chloride 10 ml 09/28/21 02:56 Sodium Chloride 0.9% 10 Ml Flush Syringe IV PRN PRN LINE FLUSH Nutrition/Malnutrition Assess - Dietary Evaluation Nutrition/Malnutrition Findings: Nutrition Notes Start: 09/28/21 15:21 Freq: Status: Active Protocol: Document 10/01/21 10:27 GB (Rec: 10/01/21 10:34 GB [id number]) Nutrition Notes Initial or Follow up Brief Note Current Diagnosis Sepsis Other Pertinent Diagnosis morbid obesity, lymphedema RLE , generalized weakness Current Diet cardiac Labs/Tests 10/01: K 3.4, BUN 24, glucose 114, Ca 6.8 Pertinent Medications D5(PRN), Na Bicarbonate/D5 1150ml (196kcal) Height 6 ft 1 in Weight 198.4 kg Paul Body Weight (kg) 83.63 BMI 57.6 Weight change and time frame 10/01 198.4kg Gain of +40kg Need reweigh to confirm weight change. Weight Status Morbidly Obese Subjective/Other Information MD consult for diet education. 10/01: weight management nutrition education packet reviewed/provided BM 09/30. Percent of energy/protein needs met: unable to assess. No PO intake recorded at time of assessment. Burn Absent Trauma Absent GI Symptoms None Food Allergy No Minimum of two criteria No #1 Nutrition Diagnosis No nutrition diagnosis at this time Nutrition Intervention Change Diet Order: Continue Cardiac Nutrition Support: n/a Add Supplement/Snack (indicate name/kcal n/a /protein ) Teaching Recipient Patient Learning Readiness Good Teaching Methods Discussion,Handout Response to Teaching Verbalize understanding Education Handouts Provided Tips for weight management reviewed/provided Barriers to Learning No Barriers Goal #1 PO intake of meals to be 75% or greater daily for LOS Goal #2 Provide/review: General Healthy Nutrition packet w/ tips for weight management on f/u and/or when admitted to floor. 10/01: met, resolved Follow-Up By: 11/02/21 Additional Comments f/u: po intake, weight
--- NOTE | 2021-09-29 16:28 | Consultation ---
History of Present Illness - Reason for Consult Consult date: 09/29/21 - History of Present Illness 46-year-old man past medical history morbid obesity, chronic lymphedema in the right lower extremity presented to hospital from residential. He complained of nausea generalized weakness as well as pain in the right lower extremity. Febrile to 103.1 with a white count of 10.4. Covid negative. Blood cultures no growth so far. Currently on ceftriaxone and vancomycin. Imaging personally reviewed: Chest x-ray: Borderline interstitial edema. Lower extremity CT: Right lower extremity cellulitis, no evidence of abscess or necrotizing fasciitis. Review of Systems: Bold if positive, otherwise negative General: fevers, chills, rigors HEENT: visual disturbance, diplopia, eye pain Respiratory: cough, sputum, hemoptysis, shortness of breath Cardiovascular: chest pain, syncope Gastrointestinal: nausea, vomiting, diarrhea, abdominal pain Genitourinary: dysuria, hematuria, flank pain Musculoskeletal: neck pain, back pain, joint pain, edema Neurologic: headaches, seizures Hematologic: easy bruising or bleeding Endocrine: night sweats, acute weight loss Skin: rash, jaundice, redness Psychiatric: suicidal, homicidal ideation Past History Past Medical History: other (Morbid Obesity) Past Surgical History: No surgical history Social history: no significant social history Family history: no significant family history Medications and Allergies Allergies Allergy/AdvReac Type Severity Reaction Status Date / Time No Known Allergies Allergy Verified 09/27/21 22:52 Active Meds: Active Medications Acetaminophen (Acetaminophen 325 Mg Tab) 650 mg PO Q6H PRN PRN Reason: Pain MILD(1-3)/Fever >100.5/BARRY Last Admin: 09/29/21 13:05 Dose: 650 mg Documented by: Famotidine (Famotidine 20 Mg Tab) 20 mg PO QHS LUZ Heparin Sodium (Porcine) (Heparin 5,000 Unit/1 Ml Vial) 5,000 unit SUB-Q Q8HR LUZ Last Admin: 09/29/21 13:05 Dose: 5,000 unit Documented by: Ceftriaxone Sodium (Rocephin/Ns 2 Gm/100 Ml) 2 gm in 100 mls @ 200 mls/hr IV Q24H LUZ; Protocol Last Admin: 09/29/21 01:23 Dose: 200 mls/hr Documented by: NORepinephrine/NS 8 MG-250 ML (Norepinephrine/Ns 8 Mg-250 Ml (Double Conc)) 8 mg in 250 mls @ 3.75 mls/hr IV TITRATE LUZ; Protocol Last Admin: 09/29/21 03:47 Dose: 1.07 mcg/min, 2 mls/hr Documented by: Sodium Bicarbonate 150 meq/ (Dextrose) 1,150 mls @ 125 mls/hr IV DIRECT LUZ Last Admin: 09/29/21 02:43 Dose: 125 mls/hr Documented by: Magnesium Hydroxide (Magnesium Hydroxide (Mom) Oral Liqd Udc) 30 ml PO Q4H PRN PRN Reason: Constipation Morphine Sulfate (Morphine 2 Mg/1 Ml Inj) 2 mg IV Q4H PRN PRN Reason: Pain, Moderate (4-6) Morphine Sulfate (Morphine 4 Mg/1 Ml Inj) 4 mg IV Q4H PRN PRN Reason: Pain , Severe (7-10) Ondansetron HCl (Ondansetron 4 Mg/2 Ml Inj) 4 mg IV Q8H PRN PRN Reason: Nausea And Vomiting Sodium Chloride (Sodium Chloride 0.9% 10 Ml Flush Syringe) 10 ml IV BID LUZ Last Admin: 09/29/21 09:21 Dose: Not Given Documented by: Sodium Chloride (Sodium Chloride 0.9% 10 Ml Flush Syringe) 10 ml IV PRN PRN PRN Reason: LINE FLUSH Physical Examination - Physical Exam Narrative exam: Physical Exam: Constitutional: Alert, cooperative. No acute distress Head, Ears, Nose: Normocephalic, atraumatic. External ears, nose normal Eyes: Conjunctivae/corneas clear. No icterus. No ptosis. Neck: Supple, no meningeal signs Oral: dentition fair, no thrush Cardiovascular: S1, S2 normal. Respiratory: Good air entry, clear to auscultation bilaterally GI: Soft, non-tender; bowel sounds normal. No peritoneal signs. Musculoskeletal: No pedal edema, no cyanosis. Skin: No rash or abscess Hem/Lymphatic: No palpable cervical or supraclavicular nodes. No lymphangitis Psych: Mood ok. Affect normal Neurological: Awake, alert, oriented. No gross abnormality - Constitutional Vitals: Vital Signs Temp Pulse Resp BP Pulse Ox 100.0 F H 110 H 33 H 84/48 100 09/29/21 12:16 09/29/21 14:40 09/29/21 14:40 09/29/21 14:40 09/29/21 14:40 Temperature -Last 24 Hours Temperature 100.0 F Temperature 98.9 F Temperature 99.5 F Temperature 101.7 F Temperature 100.1 F Temperature 100.1 F Temperature 103.1 F Results - Labs CBC & Chem 7: 09/29/21 04:35 09/29/21 04:35 Labs: Abnormal lab results 09/28/21 09/29/21 09/29/21 Range/Units 17:51 01:02 04:35 RBC 5.26 H (3.65-5.03) M/mm3 MCV 83 L (84-94) fl MCH 27 L (28-32) pg RDW 17.3 H (13.2-15.2) % Lymph % (Auto) 3.4 L (13.4-35.0) % Lymph # (Auto) 0.4 L (1.2-5.4) K/mm3 Seg Neutrophils % 89.9 H (40.0-70.0) % Seg Neutrophils # 9.3 H (1.8-7.7) K/mm3 PT (12.2-14.9) Sec. INR (0.87-1.13) Sodium 134 L (137-145) mmol/L Carbon Dioxide 16 L (22-30) mmol/L BUN 35 H (9-20) mg/dL Creatinine 3.5 H (0.8-1.3) mg/dL Glucose 69 L (75-100) mg/dL Lactic Acid 3.20 H* (0.7-2.0) mmol/L Calcium 7.4 L (8.4-10.2) mg/dL Total Creatine Kinase (55-170) units/L C-Reactive Protein (0.00-1.30) mg/dL NT-Pro-B Natriuret Pep (0-450) pg/mL 09/29/21 09/29/21 09/29/21 Range/Units 04:35 04:35 04:35 RBC (3.65-5.03) M/mm3 MCV (84-94) fl MCH (28-32) pg RDW (13.2-15.2) % Lymph % (Auto) (13.4-35.0) % Lymph # (Auto) (1.2-5.4) K/mm3 Seg Neutrophils % (40.0-70.0) % Seg Neutrophils # (1.8-7.7) K/mm3 PT 18.3 H (12.2-14.9) Sec. INR 1.37 H (0.87-1.13) Sodium 136 L (137-145) mmol/L Carbon Dioxide 19 L (22-30) mmol/L BUN 34 H (9-20) mg/dL Creatinine 3.0 H (0.8-1.3) mg/dL Glucose (75-100) mg/dL Lactic Acid 5.00 H* (0.7-2.0) mmol/L Calcium 7.1 L (8.4-10.2) mg/dL Total Creatine Kinase (55-170) units/L C-Reactive Protein (0.00-1.30) mg/dL NT-Pro-B Natriuret Pep (0-450) pg/mL 09/29/21 09/29/21 09/29/21 Range/Units 04:35 10:36 10:36 RBC (3.65-5.03) M/mm3 MCV (84-94) fl MCH (28-32) pg RDW (13.2-15.2) % Lymph % (Auto) (13.4-35.0) % Lymph # (Auto) (1.2-5.4) K/mm3 Seg Neutrophils % (40.0-70.0) % Seg Neutrophils # (1.8-7.7) K/mm3 PT (12.2-14.9) Sec. INR (0.87-1.13) Sodium (137-145) mmol/L Carbon Dioxide (22-30) mmol/L BUN (9-20) mg/dL Creatinine (0.8-1.3) mg/dL Glucose (75-100) mg/dL Lactic Acid 4.30 H* (0.7-2.0) mmol/L Calcium (8.4-10.2) mg/dL Total Creatine Kinase 71167 H (55-170) units/L C-Reactive Protein (0.00-1.30) mg/dL NT-Pro-B Natriuret Pep 689.6 H (0-450) pg/mL 09/29/21 Range/Units 14:34 RBC (3.65-5.03) M/mm3 MCV (84-94) fl MCH (28-32) pg RDW (13.2-15.2) % Lymph % (Auto) (13.4-35.0) % Lymph # (Auto) (1.2-5.4) K/mm3 Seg Neutrophils % (40.0-70.0) % Seg Neutrophils # (1.8-7.7) K/mm3 PT (12.2-14.9) Sec. INR (0.87-1.13) Sodium (137-145) mmol/L Carbon Dioxide (22-30) mmol/L BUN (9-20) mg/dL Creatinine (0.8-1.3) mg/dL Glucose (75-100) mg/dL Lactic Acid (0.7-2.0) mmol/L Calcium (8.4-10.2) mg/dL Total Creatine Kinase (55-170) units/L C-Reactive Protein 34.20 H (0.00-1.30) mg/dL NT-Pro-B Natriuret Pep (0-450) pg/mL Assessment and Plan Cultures: Blood culture no growth so far A/P: 46-year-old man past medical history morbid obesity, chronic edema of the right leg presented to hospital with: #Acute sepsis: Present with tachycardia and fevers. Secondary to RLE cellulitis. #RLE cellulitis: Likely secondary to chronic edema. If having frequent recurrences, could consider antibiotic prophylaxis. Otherwise, encourage edema reduction strategies. #Morbid obesity Recs: -Encourage edema reduction strategies such as elevating the leg, compression stockings, weight loss. -Agree with current antibiotics with vancomycin and ceftriaxone -Follow fever curve Thank you for the consult, we will continue to follow. Meryl Ralph MD [facility] ([facility] O: [phone] F: [phone]
[2021-09-29] MEDS ORDERED: DEXTROSE 50% IN WATER (25GM) 50 ML SYRINGE IV PRN (17:00)
[2021-09-29] MEDS: FAMOTIDINE 20 MG TAB PO SCH (22:29)
--- NOTE | 2021-09-30 04:01 | Consultation ---
DATE OF CONSULTATION: 09/29/2021 PULMONARY CRITICAL CARE CONSULTATION CONSULTING PHYSICIAN: Dr. Akin De Jesus. REASON FOR CONSULTATION: Septic shock essentially believe secondary to right lower extremity wound/swelling. CHIEF COMPLAINT AND HISTORY OF PRESENT ILLNESS: The patient is a now 46-year-old morbidly obese male who came into the hospital, I believe brought in by the [facility] system, the [facility] system. He has a history of chronic right lower extremity lymphedema and cellulitis that he really does not know what the cause was, but he has had for years. [facility] and he was complaining of weakness and nausea. He felt like he had an infection of the right leg. He was hypotensive, tachycardic, brought into the emergency room after being given Rocephin and IV fluids in the halfway. Evaluation in the emergency room showed that he indeed had a right groin wound and a suspicion for right lower extremity cellulitis. He was also found to have renal failure, unclear if it was acute or chronic. He was hypotensive. A right IJ central line was placed in the emergency room and I was consulted after he became hypotensive and required vasopressor support overnight. When I stopped by to see him, he was rested in bed. He was feeling a little bit better. He denied any chest pain. He denied any more persistent nausea or vomiting. With regards to lower extremity swelling, he said that the swelling really about the same is the pain that really was different. He denies any trauma to the leg. He denies any animal bites. The above is as much of the history of presentation as I have. PAST MEDICAL HISTORY: Morbid obesity. PAST SURGICAL HISTORY: Unknown. MEDICATIONS: He was on at the time I stopped by to see him were reviewed. Pertinent medications include the following: Tylenol 650 mg p.o. q.6 hours p.r.n. mild pain or fevers, Rocephin 2 grams IV daily, heparin 5000 units subQ q. 8 hours, morphine sulfate 2 mg IV q.4 hours p.r.n. moderate pain and 4 mg IV q.4 hours p.r.n. severe pain. Levophed drip had been going at 2 mcg per minute, Zofran 4 mg IV q. 8 hours p.r.n. nausea and vomiting. He was on ____ 3 amps of bicarbonate, mixed in 1 liter of D5W going at 125 mL per hour. He had also received magnesium sulfate 3 grams for correction earlier. ALLERGIES: Denies any known drug allergies. DIET: Morbidly obese. Denies acute weight loss or gain in the preceding few weeks to months. FAMILY AND SOCIAL HISTORY: The patient is currently incarcerated. He denies alcohol, tobacco or illicit drug use or abuse. FAMILY HISTORY: Otherwise noncontributory. REVIEW OF SYSTEMS: No loss of consciousness. He did feel faint, but denied any new onset focal weakness. Denied any new onset seizures. Denies gross hematochezia or melena. Denies gross hematuria or dysuria. He had the nausea prior to coming in. He denies polydipsia, polyuria. Denies heat or cold intolerance. Complete 13-system review of system was obtained. Pertinent positives and/or negatives as in body of history above, otherwise noncontributory. PHYSICAL EXAMINATION: VITAL SIGNS: He was afebrile initially, but T-max 103.1 Fahrenheit since he came in. Presentation temperature was 98.3 with a pulse of 130, respiratory rate of 20, blood pressure 92/60 and O2 sats were 97%. Inspired oxygen concentration was not recorded at that time. When I stopped by to see him, O2 sats were 98% on room air. GENERAL: He is a morbidly obese male. Normocephalic, atraumatic. Talking to me with full sentences, but with mildly increased respiratory effort at rest. HEAD, EYES, EARS, NOSE AND THROAT: Anicteric. No conjunctival erythema. Oropharynx was moist. Large neck circumference. Normal range of motion. No gross jugular venous distention. No thyromegaly. Grossly, there were no palpable lymph nodes in the supraclavicular or submandibular lymph node chains. LUNGS: Auscultation of both lung bettencourt, apart from diminished/distant breath sounds. Lungs were clear bilaterally with good bilateral air movement. HEART: Sounds 1 and 2 are heard at the time of my evaluation, regular rate and rhythm without overt rubs or murmurs. ABDOMEN: Soft, full, protuberant. Bowel sounds are positive, nontender. No palpable hepatosplenomegaly. EXTREMITIES: Without overt digital clubbing or cyanosis. He has a right lower extremity lymphedema and the left lower extremity trace pedal edema. He has a nonfluctuant possible abscess collection in the right upper medial groin with evidence of possible expression of pus earlier. It is tender to touch. Otherwise, he has chronic venous stasis changes to both lower extremities. NEUROLOGIC: Pupils are equal, round, about 4 mm, reactive to light. Extraocular muscle movements are intact. He moves all extremities spontaneously. PSYCHIATRIC: Mood was normal. Affect was appropriate. He had intact judgment and insight. LABORATORY DATA: From my review are as follows: Admission white cell count 10,700, hemoglobin 15.6, hematocrit 47.0, platelet count 270, 30% band neutrophils on the manual differential. INR was 1.39. Venous blood gas showed a pH of 7.44. Serum sodium 130, potassium 4.3, chloride 98, bicarbonate was 14, BUN 25, creatinine 3.8, glucose was 81. Lactic acid level was 3.9. It is 5.0 this morning. Magnesium was low at 0.9. It has been corrected now 1.8. AST 247, ALT 69, total creatine kinase was 8677. It is up to 10,759. AST was up at 245, ALT was 69. TSH within normal limits. Urinalysis negative for leukocyte esterase and nitrites. It had large blood. Urine creatinine was 154. Urine sodium was 58. Calculating for a fractional excretion of sodium of 1% suggesting some element of intrinsic disease. Two sets of blood cultures are no growth to date. A chest x-ray was done at presentation, really no acute process. Low lung volumes. Repeat chest x-ray showed a right IJ line in place with maybe about 10-15 cm within the lumen of the right internal jugular vein and the tip in the distal SVC. Repeat chest x-ray showed some retraction of the right IJ line probably around 5 or 6 cm left and the lumen of the right IJ. No gross pneumothorax, no gross bony fracture. Ultrasounds were done. Bilateral venous ultrasounds. No DVT. Moderate subcutaneous soft tissue edema in the right thigh and knee. A CT of the lower extremities was done, it showed right lower extremity cellulitis. No CT evidence of osteomyelitis or soft tissue abscess or necrotizing fasciitis. He did have some reactive adenopathy in the proximal right thigh. A 2D echocardiogram has been ordered and is pending. ASSESSMENT: 1. Septic shock, probably secondary to right lower extremity cellulitis. 2. Right lower extremity cellulitis. 3. Morbid obesity. 4. Metabolic acidosis. 5. Hemoconcentration at presentation. 6. Hyponatremia at presentation. 7. Acute kidney injury, likely. Serum creatinine is down to 3.0 from 3.8. 8. Elevated serum transaminases. 9. Rhabdomyolysis. 10. Lactic acidosis. 11. Hypomagnesemia. PLAN: I will continue volume resuscitation in this gentleman. We will continue with the bicarbonate drip as recommended by the outpatient coding specialist, I believe. He has remained off vasopressors. He is now weaned off the Levophed. I will downgrade him to the intermediate care unit, but still watch him closely. Supplemental oxygen as necessary will be given to keep O2 sats greater than or equal to about 90%. I have recommended an outpatient sleep clinic evaluation. We will continue to monitor his BUN and creatinine with volume resuscitation while also watching out for possible hypotension. I will repeat the serum lactic acid in the morning. Anti-infectives should probably be broadened. I will recommend an infectious disease consultation. I will be ordering pro-calcitonin levels and CRP levels to help guide clinical decision making. He is going to be placed on GI prophylaxis. He is already on DVT prophylaxis. I will use Pepcid for GI prophylaxis. Flu and pneumonia vaccination will be addressed per protocol. Thank you very much for the consult. We will follow along and make further recommendations as the picture progresses/becomes clearer. He is critically ill on life-sustaining interventions including the vasopressor support at very high risk of from infectious disease system and cardiac system decompensation. At this time, I spent about 35-40 minutes of critical care time without overlap and excluding any procedural time that may be necessary. No acute indication for central venous access at this point. He has 2 large bore peripherals and he will be watched closely. At this time, I spent about 35-40 minutes of critical care time without overlap and excluding any procedural time that may be necessary. TID: [id number] RECEIPT: [id number] KLARISSA/NORM/DIANDRA
[2021-09-30] MEDS: SODIUM BICARBONATE 150 MEQ in DEXTROSE 5% IN WATER 1,000 ML IV SCH ×3 (05:31→22:25)
[2021-09-30] MEDS: HEPARIN 5,000 UNIT/1 ML VIAL SUB-Q SCH ×3 (05:33→13:08)
[2021-09-30] MEDS: ACETAMINOPHEN 325 MG TAB PO PRN ×2 (05:47→20:35)
[2021-09-30 06:41] LABS: Hematocrit 41.7 % (35.5-45.6); Hemoglobin 13.7 gm/dl (11.8-15.2); Mean Corpuscular HGB Conc 33 % (32-34); Mean Corpuscular Volume 81 fl (84-94); Red Blood Count 5.16 M/mm3 (3.65-5.03); Red Cell Distribution Width 17.1 % (13.2-15.2)
[2021-09-30 06:55] LABS: Albumin 2.1 g/dL (3.9-5); Calcium 6.7 mg/dL (8.4-10.2)
--- NOTE | 2021-09-30 09:23 | Progress Note ---
Assessment and Plan - Patient Problems (1) Acute kidney injury Current Visit: Yes Status: Acute Plan to address problem: possibly prerenal in nature in the setting of sepsis and right lower extremity cellulitis. Continue with current IV fluid hydration along with appropriate antibiotic therapy which should be dosed per renal function. Will obtain renal ultrasound along with urinalysis and urine electrolytes for further evaluation. We will follow up closely. Please avoid all nephrotoxins and maintain mean her toe pressures above 65 mmHg. overall renal function is showing steady improvement and I would continue current regimen at this time. (2) Cellulitis of right lower extremity Current Visit: Yes Status: Acute Plan to address problem: continue IV antibiotics Per primary team recommendations. Please dose antibiotics appropriately for his decreased renal function. Follow-up blood and wound cultures at this time. (3) Rhabdomyolysis Current Visit: Yes Status: Acute Plan to address problem: agree with current IV fluid hydration and follow-up of CPK levels at this time. (4) Sepsis Current Visit: Yes Status: Acute Plan to address problem: follow-up culture studies at this time. Currently on IV antibiotics. Agree with current IV fluid hydration. Will monitor closely. CT of the right lower extremity did not show evidence of acute osteomyelitis but however this scan was done without contrast secondary to decreased renal function. Subjective Date of service: 09/29/21 Interval history: this note reflects patient encounter on 09/29/21. Unable to place a note at that time secondary to issues with documentation system. Patient was seen in the intensive care unit. Was under protocol for checking for COVID 19 secondary to febrile illness. no other acute issues were documented or reported per primary staff. He had been weaned off pressor requirements during day shift yesterday. Renal function labs were showing slow improvement. He remained nonoliguric. Objective - Exam Narrative Exam: patient was not directly examined as he was undergoing testing for the presence of COVID 19 pneumonia. This was done in order to preserve personal protective equipment and to decrease the spread of potential COVID 19. - Vital Signs Vital signs: Vital Signs - 12hr 09/29/21 09/29/21 09/29/21 21:30 21:40 21:50 Temperature Pulse Rate 117 H 117 H 125 H Respiratory 24 22 15 Rate Blood Pressure 118/66 118/66 97/49 O2 Sat by Pulse 100 100 97 Oximetry 09/29/21 09/29/21 09/29/21 22:00 22:10 22:20 Temperature Pulse Rate 127 H Respiratory 18 Rate Blood Pressure 97/49 133/65 133/65 O2 Sat by Pulse 98 99 97 Oximetry 09/29/21 09/29/21 09/29/21 22:30 22:40 22:52 Temperature Pulse Rate 123 H Respiratory Rate Blood Pressure 124/69 124/69 124/69 O2 Sat by Pulse 96 99 Oximetry 09/29/21 09/29/21 09/29/21 23:00 23:10 23:20 Temperature Pulse Rate 118 H 119 H 119 H Respiratory 14 13 20 Rate Blood Pressure 122/67 122/67 124/69 O2 Sat by Pulse 99 98 98 Oximetry 09/29/21 09/29/21 09/29/21 23:24 23:30 23:40 Temperature Pulse Rate 119 H 114 H 116 H Respiratory 21 23 14 Rate Blood Pressure 124/69 105/62 105/62 O2 Sat by Pulse 99 93 98 Oximetry 09/29/21 09/30/21 09/30/21 23:50 00:00 00:10 Temperature 100.6 F H Pulse Rate 116 H 115 H 116 H Respiratory 17 11 L 15 Rate Blood Pressure 105/62 105/62 86/31 O2 Sat by Pulse 93 97 98 Oximetry 09/30/21 09/30/21 09/30/21 00:20 00:30 00:40 Temperature Pulse Rate 117 H 113 H 119 H Respiratory 19 20 31 H Rate Blood Pressure 86/31 102/51 102/51 O2 Sat by Pulse 97 95 97 Oximetry 09/30/21 09/30/21 09/30/21 00:50 01:00 01:34 Temperature Pulse Rate 114 H 115 H 118 H Respiratory 13 40 H 15 Rate Blood Pressure 102/51 71/31 71/31 O2 Sat by Pulse 99 80 L Oximetry 09/30/21 09/30/21 09/30/21 01:40 01:50 02:00 Temperature Pulse Rate 107 H 109 H 112 H Respiratory 13 26 H 32 H Rate Blood Pressure 100/49 100/49 99/53 O2 Sat by Pulse 95 96 96 Oximetry 09/30/21 09/30/21 09/30/21 02:10 02:20 02:30 Temperature Pulse Rate 109 H 113 H 119 H Respiratory 24 22 25 H Rate Blood Pressure 99/53 71/31 100/47 O2 Sat by Pulse 94 94 92 Oximetry 09/30/21 09/30/21 09/30/21 02:40 02:50 03:00 Temperature Pulse Rate 118 H 114 H 114 H Respiratory 15 21 29 H Rate Blood Pressure 100/47 100/47 96/46 O2 Sat by Pulse 96 97 96 Oximetry 09/30/21 09/30/21 09/30/21 03:10 03:20 03:30 Temperature Pulse Rate 114 H 112 H 113 H Respiratory 26 H 33 H 13 Rate Blood Pressure 96/46 96/46 104/50 O2 Sat by Pulse 98 98 99 Oximetry 09/30/21 09/30/21 09/30/21 03:40 03:50 04:00 Temperature 100.2 F H Pulse Rate 118 H 112 H 111 H Respiratory 18 42 H 21 Rate Blood Pressure 104/50 104/50 104/50 O2 Sat by Pulse 72 L 98 98 Oximetry 09/30/21 09/30/21 09/30/21 04:10 04:20 04:30 Temperature Pulse Rate 109 H 112 H 110 H Respiratory 33 H 31 H 32 H Rate Blood Pressure 91/52 91/52 111/62 O2 Sat by Pulse 97 99 97 Oximetry 09/30/21 09/30/21 09/30/21 04:40 04:50 05:00 Temperature Pulse Rate 111 H 111 H 110 H Respiratory 20 16 39 H Rate Blood Pressure 111/62 111/62 117/67 O2 Sat by Pulse 99 99 99 Oximetry 09/30/21 09/30/21 09/30/21 05:10 05:20 05:30 Temperature Pulse Rate 113 H 108 H 110 H Respiratory 37 H 30 H 36 H Rate Blood Pressure 117/67 117/67 95/58 O2 Sat by Pulse 96 94 98 Oximetry 09/30/21 09/30/21 09/30/21 05:40 05:50 06:00 Temperature Pulse Rate 111 H 112 H 111 H Respiratory 31 H 31 H 28 H Rate Blood Pressure 95/58 95/58 105/54 O2 Sat by Pulse 98 98 97 Oximetry 09/30/21 09/30/21 09/30/21 06:10 06:20 06:30 Temperature Pulse Rate 112 H 110 H 111 H Respiratory 25 H 13 14 Rate Blood Pressure 105/54 91/51 91/51 O2 Sat by Pulse 97 93 Oximetry 09/30/21 09/30/21 09/30/21 06:40 06:50 07:00 Temperature Pulse Rate 108 H 106 H 108 H Respiratory 13 30 H 34 H Rate Blood Pressure 91/51 91/51 91/51 O2 Sat by Pulse 96 86 Oximetry 09/30/21 09/30/21 09/30/21 07:10 07:20 07:30 Temperature Pulse Rate 105 H 106 H 103 H Respiratory 14 28 H 29 H Rate Blood Pressure 91/51 91/51 91/51 O2 Sat by Pulse 95 92 97 Oximetry 09/30/21 09/30/21 09/30/21 07:40 07:50 08:00 Temperature Pulse Rate 104 H 105 H 105 H Respiratory 37 H 26 H 35 H Rate Blood Pressure 91/51 91/51 91/51 O2 Sat by Pulse 96 99 89 Oximetry 09/30/21 09/30/21 09/30/21 08:10 08:20 08:30 Temperature Pulse Rate 104 H 103 H 103 H Respiratory 34 H 27 H 20 Rate Blood Pressure 91/51 91/51 91/51 O2 Sat by Pulse 95 93 96 Oximetry 09/30/21 08:40 Temperature Pulse Rate 103 H Respiratory 11 L Rate Blood Pressure 91/51 O2 Sat by Pulse Oximetry - Lab 09/30/21 05:30 09/30/21 05:30 Most recent lab results Calcium 6.7 mg/dL (8.4-10.2) L 09/30/21 05:30 Phosphorus 1.90 mg/dL (2.5-4.5) L 09/30/21 05:30 Magnesium 2.20 mg/dL (1.7-2.3) 09/30/21 05:30 Urine Creatinine 153.7 mg/dL (0.1-20.0) H 09/28/21 15:10 Urine Sodium 58 mmol/L 09/28/21 15:10 Medications & Allergies - Medications Allergies/Adverse Reactions: Allergies No Known Allergies Allergy (Verified 09/27/21 22:52) Active Medications: Generic Name Dose Route Start Last Admin Trade Name Freq PRN Reason Stop Dose Admin Acetaminophen 650 mg 09/28/21 02:56 09/30/21 05:47 Acetaminophen 325 Mg Tab PO 650 mg Q6H PRN Administration Pain MILD(1-3)/Fever >100.5/BARRY Dextrose 50 ml 09/29/21 17:00 Dextrose 50% In Water (25gm) 50 Ml Syringe IV Q30MIN PRN Hypoglycemia Protocol Famotidine 20 mg 09/29/21 22:00 09/29/21 22:29 Famotidine 20 Mg Tab PO 20 mg QHS LUZ Administration Heparin Sodium (Porcine) 5,000 unit 09/28/21 14:00 09/30/21 05:48 Heparin 5,000 Unit/1 Ml Vial SUB-Q 5,000 unit Q8HR LUZ Administration Ceftriaxone Sodium 2 gm in 100 mls @ 200 mls/hr 09/28/21 22:00 09/29/21 22:36 Rocephin/Ns 2 Gm/100 Ml IV 200 mls/hr Q24H LUZ Administration Protocol NORepinephrine/NS 8 MG-250 ML 8 mg in 250 mls @ 3.75 mls/hr 09/28/21 17:00 09/29/21 03:47 Norepinephrine/Ns 8 Mg-250 Ml (Double Conc) IV 1.07 mcg/min TITRATE LUZ 2 mls/hr Administration Protocol 2 MCG/MIN Sodium Bicarbonate 150 meq/ 1,150 mls @ 125 mls/hr 09/28/21 18:00 09/30/21 05:31 Dextrose IV 125 mls/hr DIRECT LUZ Administration Magnesium Hydroxide 30 ml 09/28/21 02:56 Magnesium Hydroxide (Mom) Oral Liqd Udc PO Q4H PRN Constipation Morphine Sulfate 2 mg 09/28/21 02:56 Morphine 2 Mg/1 Ml Inj IV Q4H PRN Pain, Moderate (4-6) Morphine Sulfate 4 mg 09/28/21 02:56 Morphine 4 Mg/1 Ml Inj IV Q4H PRN Pain , Severe (7-10) Ondansetron HCl 4 mg 09/28/21 02:56 Ondansetron 4 Mg/2 Ml Inj IV Q8H PRN Nausea And Vomiting Sodium Chloride 10 ml 09/28/21 10:00 09/29/21 22:29 Sodium Chloride 0.9% 10 Ml Flush Syringe IV 10 ml BID LUZ Administration Sodium Chloride 10 ml 09/28/21 02:56 Sodium Chloride 0.9% 10 Ml Flush Syringe IV PRN PRN LINE FLUSH
[2021-09-30 10:25] LABS: Platelet Count 92 K/mm3 (140-440)
--- NOTE | 2021-09-30 13:00 | Progress Note ---
Assessment and Plan Septic shock, probably secondary to right lower extremity cellulitis Right lower extremity cellulitis Morbid obesity Metabolic acidosis Hemoconcentration Hyponatremia Acute kidney injury Elevated serum transaminases Rhabdomyolysis Lactic acidosis Hypomagnesemia - continue volume resuscitation - lactic acidosis is resolving - supplemental oxygen to keep O2 sats > 90% - prn bronchodilators (ADONAY) with pulm hygiene per RT - continue to avoid nephrotoxins, renally dose all medications - mobility protocols to prevent pressure ulcers - PT/OT as tolerated - Wound care per RN/WCT - continue accuchecks with glycemic control per SSI for target blood glucose < 180 mg/dL - tobacco abstinence strongly counseled at the bedside - home oxygen evaluation at discharge - GI & VTE prophylaxis - Flu & pneumovax per protocol - prn analgesia per pain score - continue other care per attending / other consultants ... re-evaluate in am & prn .... transfer to medical floor Subjective Date of service: 09/30/21 Principal diagnosis: Septic shock; RLExt cellulitis; Morbid obesity; SAL; Rhabdomyolysis Interval history: Patient is seen today for: Septic shock; Right lower extremity cellulitis; Morbid obesity; SAL; Rhabdomyolysis Seen and examined at bedside; 24hour events reviewed; nursing and respiratory care staff consulted; no adverse overnight events reported to me; resting peacefully in bed; denies acute chest pains or SOB; no vasopressors; feels better; No N/V/F/C Objective Vital Signs - 12hr 09/30/21 09/30/21 09/30/21 01:00 01:34 01:40 Temperature Pulse Rate 115 H 118 H 107 H Respiratory 40 H 15 13 Rate Blood Pressure 71/31 71/31 100/49 O2 Sat by Pulse 80 L 95 Oximetry 09/30/21 09/30/21 09/30/21 01:50 02:00 02:10 Temperature Pulse Rate 109 H 112 H 109 H Respiratory 26 H 32 H 24 Rate Blood Pressure 100/49 99/53 99/53 O2 Sat by Pulse 96 96 94 Oximetry 09/30/21 09/30/21 09/30/21 02:20 02:30 02:40 Temperature Pulse Rate 113 H 119 H 118 H Respiratory 22 25 H 15 Rate Blood Pressure 71/31 100/47 100/47 O2 Sat by Pulse 94 92 96 Oximetry 09/30/21 09/30/21 09/30/21 02:50 03:00 03:10 Temperature Pulse Rate 114 H 114 H 114 H Respiratory 21 29 H 26 H Rate Blood Pressure 100/47 96/46 96/46 O2 Sat by Pulse 97 96 98 Oximetry 09/30/21 09/30/21 09/30/21 03:20 03:30 03:40 Temperature Pulse Rate 112 H 113 H 118 H Respiratory 33 H 13 18 Rate Blood Pressure 96/46 104/50 104/50 O2 Sat by Pulse 98 99 72 L Oximetry 09/30/21 09/30/21 09/30/21 03:50 04:00 04:10 Temperature 100.2 F H Pulse Rate 112 H 111 H 109 H Respiratory 42 H 21 33 H Rate Blood Pressure 104/50 104/50 91/52 O2 Sat by Pulse 98 98 97 Oximetry 09/30/21 09/30/21 09/30/21 04:20 04:30 04:40 Temperature Pulse Rate 112 H 110 H 111 H Respiratory 31 H 32 H 20 Rate Blood Pressure 91/52 111/62 111/62 O2 Sat by Pulse 99 97 99 Oximetry 09/30/21 09/30/21 09/30/21 04:50 05:00 05:10 Temperature Pulse Rate 111 H 110 H 113 H Respiratory 16 39 H 37 H Rate Blood Pressure 111/62 117/67 117/67 O2 Sat by Pulse 99 99 96 Oximetry 09/30/21 09/30/21 09/30/21 05:20 05:30 05:40 Temperature Pulse Rate 108 H 110 H 111 H Respiratory 30 H 36 H 31 H Rate Blood Pressure 117/67 95/58 95/58 O2 Sat by Pulse 94 98 98 Oximetry 09/30/21 09/30/21 09/30/21 05:50 06:00 06:10 Temperature Pulse Rate 112 H 111 H 112 H Respiratory 31 H 28 H 25 H Rate Blood Pressure 95/58 105/54 105/54 O2 Sat by Pulse 98 97 97 Oximetry 09/30/21 09/30/21 09/30/21 06:20 06:30 06:40 Temperature Pulse Rate 110 H 111 H 108 H Respiratory 13 14 13 Rate Blood Pressure 91/51 91/51 91/51 O2 Sat by Pulse 93 Oximetry 09/30/21 09/30/21 09/30/21 06:50 07:00 07:10 Temperature Pulse Rate 106 H 108 H 105 H Respiratory 30 H 34 H 14 Rate Blood Pressure 91/51 91/51 91/51 O2 Sat by Pulse 96 86 95 Oximetry 09/30/21 09/30/21 09/30/21 07:20 07:30 07:40 Temperature Pulse Rate 106 H 103 H 104 H Respiratory 28 H 29 H 37 H Rate Blood Pressure 91/51 91/51 91/51 O2 Sat by Pulse 92 97 96 Oximetry 09/30/21 09/30/21 09/30/21 07:50 08:00 08:10 Temperature 98.8 F Pulse Rate 105 H 105 H 104 H Respiratory 26 H 35 H 34 H Rate Blood Pressure 91/51 91/51 91/51 O2 Sat by Pulse 99 89 95 Oximetry 09/30/21 09/30/21 09/30/21 08:20 08:30 08:40 Temperature Pulse Rate 103 H 103 H 103 H Respiratory 27 H 20 11 L Rate Blood Pressure 91/51 91/51 91/51 O2 Sat by Pulse 93 96 Oximetry 09/30/21 09/30/21 09/30/21 08:50 09:00 09:10 Temperature Pulse Rate 106 H 105 H 102 H Respiratory 13 17 29 H Rate Blood Pressure 91/51 91/51 91/51 O2 Sat by Pulse 96 99 96 Oximetry 09/30/21 09/30/21 09/30/21 09:20 09:30 09:40 Temperature Pulse Rate 106 H 103 H 105 H Respiratory 27 H 35 H 30 H Rate Blood Pressure 91/51 91/51 91/51 O2 Sat by Pulse 85 93 97 Oximetry 09/30/21 09/30/21 09/30/21 09:50 10:00 10:10 Temperature Pulse Rate 102 H 105 H 105 H Respiratory 28 H 15 13 Rate Blood Pressure 91/51 91/51 91/51 O2 Sat by Pulse 96 96 98 Oximetry 09/30/21 09/30/21 09/30/21 10:20 10:30 10:40 Temperature Pulse Rate 105 H 106 H 108 H Respiratory 17 40 H 34 H Rate Blood Pressure 91/51 91/51 91/51 O2 Sat by Pulse 98 99 98 Oximetry 09/30/21 09/30/21 09/30/21 10:50 11:00 11:10 Temperature Pulse Rate 108 H 106 H 109 H Respiratory 37 H 38 H 23 Rate Blood Pressure 91/51 O2 Sat by Pulse 100 97 95 Oximetry 09/30/21 09/30/21 09/30/21 11:21 11:31 11:41 Temperature Pulse Rate 110 H 105 H 107 H Respiratory 25 H 34 H 32 H Rate Blood Pressure O2 Sat by Pulse 91 99 100 Oximetry 09/30/21 09/30/21 09/30/21 11:51 12:00 12:01 Temperature Pulse Rate 109 H 105 H 105 H Respiratory 33 H 15 18 Rate Blood Pressure O2 Sat by Pulse 100 97 97 Oximetry 09/30/21 09/30/21 09/30/21 12:11 12:21 12:31 Temperature Pulse Rate 106 H 106 H 106 H Respiratory 38 H 38 H 29 H Rate Blood Pressure O2 Sat by Pulse 97 98 97 Oximetry 09/30/21 12:41 Temperature Pulse Rate 105 H Respiratory 15 Rate Blood Pressure O2 Sat by Pulse 95 Oximetry Constitutional: no acute distress Eyes: non-icteric ENT: oropharynx moist Neck: supple, no lymphadenopathy, no JVD Effort: mildly labored Ascultation: Bilateral: clear, diminished breath sounds Percussion: Bilateral: not dull Cardiovascular: regular rate and rhythm Gastrointestinal: normoactive bowel sounds, soft, non-tender, non-distended (protuberant) Integumentary: rash (stasis dermatitis; RLExt Lymphedema) Extremities: no cyanosis, pulses normal, no ischemia or petechiae Neurologic: non-focal exam (grossly), pupils equal and round, CN II-XII normal Psychiatric: mood appropriate, affect normal CBC and BMP: 09/30/21 13:58 09/30/21 13:58 ABG, PT/INR, D-dimer: PT/INR, D-dimer PT 18.3 Sec. (12.2-14.9) H 09/29/21 04:35 INR 1.37 (0.87-1.13) H 09/29/21 04:35 Abnormal lab findings: Abnormal Labs 09/28/21 09/28/21 09/28/21 00:26 00:26 00:26 WBC RBC 5.70 H Hgb 15.6 H Hct 47.0 H MCV 83 L MCH 27 L RDW 16.8 H Plt Count Lymph % (Auto) Lymph # (Auto) Seg Neutrophils % Lymphocytes % (Manual) 3.0 L Seg Neutrophils # Lymphocytes # (Manual) 0.3 L PT INR VBG pH Sodium 130 L Carbon Dioxide 14 L BUN 25 H Creatinine 3.8 H Glucose POC Glucose Lactic Acid 4.00 H* Calcium Phosphorus Magnesium AST 245 H ALT 69 H Total Creatine Kinase C-Reactive Protein NT-Pro-B Natriuret Pep Albumin 3.1 L Urine Creatinine Urine Chloride 09/28/21 09/28/21 09/28/21 00:26 00:26 00:26 WBC RBC Hgb Hct MCV MCH RDW Plt Count Lymph % (Auto) Lymph # (Auto) Seg Neutrophils % Lymphocytes % (Manual) Seg Neutrophils # Lymphocytes # (Manual) PT 18.5 H INR 1.39 H VBG pH 7.443 H Sodium Carbon Dioxide BUN Creatinine Glucose POC Glucose Lactic Acid Calcium Phosphorus Magnesium 0.90 L* AST ALT Total Creatine Kinase 8677 H C-Reactive Protein NT-Pro-B Natriuret Pep Albumin Urine Creatinine Urine Chloride 09/28/21 09/28/21 09/28/21 02:36 14:55 15:10 WBC RBC Hgb Hct MCV MCH RDW Plt Count Lymph % (Auto) Lymph # (Auto) Seg Neutrophils % Lymphocytes % (Manual) Seg Neutrophils # Lymphocytes # (Manual) PT INR VBG pH Sodium Carbon Dioxide BUN Creatinine Glucose POC Glucose Lactic Acid 3.90 H* 5.00 H* Calcium Phosphorus Magnesium AST ALT Total Creatine Kinase C-Reactive Protein NT-Pro-B Natriuret Pep Albumin Urine Creatinine 153.7 H Urine Chloride 22.1 L 09/28/21 09/29/21 09/29/21 17:51 01:02 04:35 WBC RBC 5.26 H Hgb Hct MCV 83 L MCH 27 L RDW 17.3 H Plt Count Lymph % (Auto) 3.4 L Lymph # (Auto) 0.4 L Seg Neutrophils % 89.9 H Lymphocytes % (Manual) Seg Neutrophils # 9.3 H Lymphocytes # (Manual) PT INR VBG pH Sodium 134 L Carbon Dioxide 16 L BUN 35 H Creatinine 3.5 H Glucose 69 L POC Glucose Lactic Acid 3.20 H* Calcium 7.4 L Phosphorus Magnesium AST ALT Total Creatine Kinase C-Reactive Protein NT-Pro-B Natriuret Pep Albumin Urine Creatinine Urine Chloride 09/29/21 09/29/21 09/29/21 04:35 04:35 04:35 WBC RBC Hgb Hct MCV MCH RDW Plt Count Lymph % (Auto) Lymph # (Auto) Seg Neutrophils % Lymphocytes % (Manual) Seg Neutrophils # Lymphocytes # (Manual) PT 18.3 H INR 1.37 H VBG pH Sodium 136 L Carbon Dioxide 19 L BUN 34 H Creatinine 3.0 H Glucose POC Glucose Lactic Acid 5.00 H* Calcium 7.1 L Phosphorus Magnesium AST ALT Total Creatine Kinase C-Reactive Protein NT-Pro-B Natriuret Pep Albumin Urine Creatinine Urine Chloride 09/29/21 09/29/21 09/29/21 04:35 10:36 10:36 WBC RBC Hgb Hct MCV MCH RDW Plt Count Lymph % (Auto) Lymph # (Auto) Seg Neutrophils % Lymphocytes % (Manual) Seg Neutrophils # Lymphocytes # (Manual) PT INR VBG pH Sodium Carbon Dioxide BUN Creatinine Glucose POC Glucose Lactic Acid 4.30 H* Calcium Phosphorus Magnesium AST ALT Total Creatine Kinase 99637 H C-Reactive Protein NT-Pro-B Natriuret Pep 689.6 H Albumin Urine Creatinine Urine Chloride 09/29/21 09/29/21 09/30/21 14:34 22:02 05:30 WBC 12.5 H RBC 5.16 H Hgb Hct MCV 81 L MCH 27 L RDW 17.1 H Plt Count 92 L Lymph % (Auto) Lymph # (Auto) Seg Neutrophils % Lymphocytes % (Manual) Seg Neutrophils # Lymphocytes # (Manual) PT INR VBG pH Sodium Carbon Dioxide BUN Creatinine Glucose POC Glucose 115 H Lactic Acid Calcium Phosphorus Magnesium AST ALT Total Creatine Kinase C-Reactive Protein 34.20 H NT-Pro-B Natriuret Pep Albumin Urine Creatinine Urine Chloride 09/30/21 09/30/21 09/30/21 05:30 05:30 08:07 WBC RBC Hgb Hct MCV MCH RDW Plt Count Lymph % (Auto) Lymph # (Auto) Seg Neutrophils % Lymphocytes % (Manual) Seg Neutrophils # Lymphocytes # (Manual) PT INR VBG pH Sodium 135 L Carbon Dioxide BUN 31 H Creatinine 1.7 H Glucose 129 H POC Glucose 123 H Lactic Acid 3.30 H* Calcium 6.7 L Phosphorus 1.90 L Magnesium AST 194 H ALT 92 H Total Creatine Kinase 6636 H C-Reactive Protein NT-Pro-B Natriuret Pep Albumin 2.1 L Urine Creatinine Urine Chloride 09/30/21 12:17 WBC RBC Hgb Hct MCV MCH RDW Plt Count Lymph % (Auto) Lymph # (Auto) Seg Neutrophils % Lymphocytes % (Manual) Seg Neutrophils # Lymphocytes # (Manual) PT INR VBG pH Sodium Carbon Dioxide BUN Creatinine Glucose POC Glucose 121 H Lactic Acid Calcium Phosphorus Magnesium AST ALT Total Creatine Kinase C-Reactive Protein NT-Pro-B Natriuret Pep Albumin Urine Creatinine Urine Chloride Allied health notes reviewed: nursing
[2021-09-30] MEDS ORDERED: VANCOMYCIN 2,000 MG in SODIUM CHLORIDE 0.9% 500 ML 500 ML IV ONE (14:00)
--- NOTE | 2021-09-30 14:40 | Progress Note ---
Assessment and Plan Cultures: Blood culture no growth so far A/P: 46-year-old man past medical history morbid obesity, chronic edema of the right leg presented to hospital with: #Acute sepsis: Present with tachycardia and fevers. Secondary to RLE celluliti s. #RLE cellulitis: Likely secondary to chronic edema. If having frequent recurrences, could consider antibiotic prophylaxis. Otherwise, encourage edema reduction strategies. #Morbid obesity Recs: -Encourage edema reduction strategies such as elevating the leg, compression stockings, weight loss. -Agree with current antibiotics with vancomycin and ceftriaxone -Follow fever curve Thank you for the consult, we will continue to follow. Meryl Ralph MD [facility] ([facility]) O: [phone] F: [phone] Subjective Date of service: 09/30/21 Interval history: Febrile overnight, white count slightly elevated today Objective - Exam Narrative Exam: Physical Exam: Constitutional: Alert, cooperative. No acute distress Head, Ears, Nose: Normocephalic, atraumatic. External ears, nose normal Eyes: Conjunctivae/corneas clear. No icterus. No ptosis. Neck: Supple, no meningeal signs Oral: dentition fair, no thrush Cardiovascular: S1, S2 normal. Respiratory: Good air entry, clear to auscultation bilaterally GI: Soft, non-tender; bowel sounds normal. No peritoneal signs. Musculoskeletal: No pedal edema, no cyanosis. Skin: No rash or abscess Hem/Lymphatic: No palpable cervical or supraclavicular nodes. No lymphangitis Psych: Mood ok. Affect normal Neurological: Awake, alert, oriented. No gross abnormality - Constitutional Vitals: Vital Signs Temp Pulse Resp BP Pulse Ox 98.8 F 104 H 21 114/69 98 09/30/21 08:00 09/30/21 14:11 09/30/21 14:11 09/30/21 14:11 09/30/21 14:11 Temperature -Last 24 Hours Temperature 98.8 F Temperature 100.2 F Temperature 100.2 F Temperature 100.6 F Temperature 101.9 F Temperature 99.3 F - Labs CBC & Chem 7: 09/30/21 05:30 09/30/21 05:30 Labs: Abnormal lab results 09/29/21 09/29/21 09/29/21 Range/Units 10:36 14:34 22:02 WBC (4.5-11.0) K/mm3 RBC (3.65-5.03) M/mm3 MCV (84-94) fl MCH (28-32) pg RDW (13.2-15.2) % Plt Count (140-440) K/mm3 Sodium (137-145) mmol/L BUN (9-20) mg/dL Creatinine (0.8-1.3) mg/dL Glucose (75-100) mg/dL POC Glucose 115 H (70-105) mg/dL Lactic Acid (0.7-2.0) mmol/L Calcium (8.4-10.2) mg/dL Phosphorus (2.5-4.5) mg/dL AST (5-40) units/L ALT (7-56) units/L Total Creatine Kinase (55-170) units/L C-Reactive Protein 34.20 H (0.00-1.30) mg/dL NT-Pro-B Natriuret Pep 689.6 H (0-450) pg/mL Albumin (3.9-5) g/dL 09/30/21 09/30/21 09/30/21 Range/Units 05:30 05:30 05:30 WBC 12.5 H (4.5-11.0) K/mm3 RBC 5.16 H (3.65-5.03) M/mm3 MCV 81 L (84-94) fl MCH 27 L (28-32) pg RDW 17.1 H (13.2-15.2) % Plt Count 92 L (140-440) K/mm3 Sodium 135 L (137-145) mmol/L BUN 31 H (9-20) mg/dL Creatinine 1.7 H (0.8-1.3) mg/dL Glucose 129 H (75-100) mg/dL POC Glucose (70-105) mg/dL Lactic Acid 3.30 H* (0.7-2.0) mmol/L Calcium 6.7 L (8.4-10.2) mg/dL Phosphorus 1.90 L (2.5-4.5) mg/dL AST 194 H (5-40) units/L ALT 92 H (7-56) units/L Total Creatine Kinase 6636 H (55-170) units/L C-Reactive Protein (0.00-1.30) mg/dL NT-Pro-B Natriuret Pep (0-450) pg/mL Albumin 2.1 L (3.9-5) g/dL 09/30/21 09/30/21 Range/Units 08:07 12:17 WBC (4.5-11.0) K/mm3 RBC (3.65-5.03) M/mm3 MCV (84-94) fl MCH (28-32) pg RDW (13.2-15.2) % Plt Count (140-440) K/mm3 Sodium (137-145) mmol/L BUN (9-20) mg/dL Creatinine (0.8-1.3) mg/dL Glucose (75-100) mg/dL POC Glucose 123 H 121 H (70-105) mg/dL Lactic Acid (0.7-2.0) mmol/L Calcium (8.4-10.2) mg/dL Phosphorus (2.5-4.5) mg/dL AST (5-40) units/L ALT (7-56) units/L Total Creatine Kinase (55-170) units/L C-Reactive Protein (0.00-1.30) mg/dL NT-Pro-B Natriuret Pep (0-450) pg/mL Albumin (3.9-5) g/dL
[2021-09-30 14:43] LABS: Hematocrit 47.4 % (35.5-45.6); Hemoglobin 15.1 gm/dl (11.8-15.2); Mean Corpuscular HGB Conc 32 % (32-34); Mean Corpuscular Volume 83 fl (84-94); Platelet Count 168 K/mm3 (140-440); Red Blood Count 5.75 M/mm3 (3.65-5.03); Red Cell Distribution Width 17.5 % (13.2-15.2)
[2021-09-30 14:56] LABS: INR 1.12 (0.87-1.13)
[2021-09-30 14:57] LABS: Partial Thromboplastin Time 32.1 Sec. (24.2-36.6)
--- NOTE | 2021-09-30 16:36 | Progress Note ---
<HERMELINDA BARRERA - Last Filed: 09/30/21 16:46> Assessment and Plan Assessment and plan: This is a [id number] AA male with past medical history of morbid obesity, lymphedema of the right lower extremity brought into the ED from the detention with complaints of generalized weakness and RLE pain. Patient was found to be septic secondary to RLE cellulitis, with hypotension, and tachycardia requiring pressors. Patient was admitted to the ICU for further management. Hospital Course to Date: 09/29/21- Patient is off pressors this am, remains slightly tachycardic on a bcarb gtt. Patient remains febrile with worsening Lactic acidosis, WBCs wnl. Continue current IV ABx regimen, ID consulted for RLE cellulitis and fever. Will continue to trend lactic acid and fever curve. 09/30/21- Patient remains febrile overnight, maintain BP no longer on pressors, Lactic acidosis is improving. Continue bcarb gtt and current IV ABx per ID. Worsen thrombocytopenia this am, HIT panel ordered, heparin was switched to PO Eliquis BID. D/w CCm okay to transfer patient to Telemetry. Assessment and Plan #Sepsis #Hypotension- resolved #Tachycardia #Cardiomegaly - Patient remains ST on the monitor - S/p sepsis bolus in the ED - Off pressors this am - CXR with mild cardiomegaly, increased pulmonary edema and interstitial edema - echo ordered - Maintain adequate perfusion - Continue rehydration with cont. IVF - Continue blood pressure monitor per protocol - Maintain MAP above 65 - Continue AC- Hep SubQ #Rhabdomyolysis #Elevated creatine [place] [id number] - Continue rehydration with cont. IVF - will continue to trend CK #Nausea- resolved - Persistent nausea with no vomiting - Tolerating diet - Continue PPI- Pepcid - Continue PRN BR - PRN antiemetic for N/V #Acute kidney injury (SAL) most likely ATN #Hypomagnesemia- improved - Baseline cr. unknown, Cr. as high as 3.8 - Cr. downtrending 1.7 this am - 09/29 FENa 0.8%, pre-renal - Mg 1.9 this am - Nephrology on consult, appreciated recommendation - Strict intake and output - Avoid nephrotoxic medications; Renally dose medications - Continue IVF for now - Monitor and replace electrolytes as needed #Sepsis 2/2 RLE Cellulitis #Lactic Acidosis #LE Lymphema - 09/28 RLE US shows no evidence of DVT - 09/[address] shows right lower extremity cellulitis. Reactive adenopathy in the proximal right thigh right groin and right hemipelvis - Lactic trending up, 5 this am - Febrile- TMAX 103.1, WBc wnl - 09/28 B.cultX2 pending - Received Vanco in the - ID consulted, pending recommendations - Continue rehydration with cont. IVF - Continue empiric ABx- Rocephin - Continue to F/U on B.cult - wound care consult - Monitor CBCs and fever curve - Continue to trend lactic acid #Endo:Hypoglycemia - Probably due to NPO status - On a diet now - Will check POCT ACHS for now - Continue current IVF - Avoid hypoglycemia - Hypoglycemia protocol initiated The high probability of a clinically significant, sudden or life threatening deterioration of the [multiple] system(s) required my full and direct attention, intervention and personal management. The aggregate critical care time was [60] minutes. This time is in addition to time spent performing reported procedures but includes the following: [x] Data Review and interpretation [x] Patient assessment and monitoring of vital signs [x] Documentation [x] Medication orders and management Disposition Plan: ICU Total Time Spent with Patient (Minutes): 60 History Interval history: Patient seen and examined at the bedside. AAO, on RA, denied any pain nor discomfort. Off pressors, remains on bcarb gtt. PELON overnight Hospitalist Physical - Constitutional Vitals: Temp Pulse Resp BP Pulse Ox 98.8 F 108 H 30 H 114/66 96 09/30/21 08:00 09/30/21 15:11 09/30/21 15:11 09/30/21 15:11 09/30/21 15:11 General appearance: Present: no acute distress, well-nourished, obese - EENT Eyes: Present: PERRL, EOM intact ENT: hearing intact, clear oral mucosa - Neck Neck: Present: normal ROM - Respiratory Respiratory effort: normal Respiratory: bilateral: diminished - Cardiovascular Rhythm: regular Heart Sounds: Present: S1 & S2 - Extremities Extremities: no ischemia, pulses intact, pulses symmetrical Extremity abnormal: edema - Peripheral Assessment Generalized Edema Type: Non-pitting Edema Degree: 2+ Capillary Refill: < 3 seconds Skin Temperature: Warm Peripheral Pulses: within normal limits - Abdominal General gastrointestinal: soft, non-tender, normal bowel sounds - Integumentary Integumentary: Present: warm, dry - Psychiatric Psychiatric: appropriate mood/affect, cooperative - Neurologic Neurologic: CNII-XII intact, moves all extremities - Allied Health Allied health notes reviewed: nursing Results - Labs CBC & Chem 7: 09/30/21 13:58 09/30/21 13:58 Labs: Laboratory Last Values WBC 12.6 K/mm3 (4.5-11.0) H 09/30/21 13:58 RBC 5.75 M/mm3 (3.65-5.03) H 09/30/21 13:58 Hgb 15.1 gm/dl (11.8-15.2) 09/30/21 13:58 Hct 47.4 % (35.5-45.6) H 09/30/21 13:58 MCV 83 fl (84-94) L 09/30/21 13:58 MCH 26 pg (28-32) L 09/30/21 13:58 MCHC 32 % (32-34) 09/30/21 13:58 RDW 17.5 % (13.2-15.2) H 09/30/21 13:58 Plt Count 168 K/mm3 (140-440) 09/30/21 13:58 Lymph % (Auto) 3.4 % (13.4-35.0) L 09/29/21 04:35 [place] % (Auto) 2.9 % (0.0-7.3) 09/29/21 04:35 Eos % (Auto) 3.2 % (0.0-4.3) 09/29/21 04:35 Baso % (Auto) 0.6 % (0.0-1.8) 09/29/21 04:35 Lymph # (Auto) 0.4 K/mm3 (1.2-5.4) L 09/29/21 04:35 [place] # (Auto) 0.3 K/mm3 (0.0-0.8) 09/29/21 04:35 Eos # (Auto) 0.3 K/mm3 (0.0-0.4) 09/29/21 04:35 Baso # (Auto) 0.1 K/mm3 (0.0-0.1) 09/29/21 04:35 Add Manual Diff Complete 09/28/21 00:26 Total Counted 100 09/28/21 00:26 Seg Neutrophils % 89.9 % (40.0-70.0) H 09/29/21 04:35 Seg Neuts % (Manual) 62.0 % (40.0-70.0) 09/28/21 00:26 Band Neutrophils % 30.0 % 09/28/21 00:26 Lymphocytes % (Manual) 3.0 % (13.4-35.0) L 09/28/21 00:26 Monocytes % (Manual) 2.0 % (0.0-7.3) 09/28/21 00:26 Metamyelocytes % 3.0 % 09/28/21 00:26 Nucleated RBC % Not Reportable 09/28/21 00:26 Seg Neutrophils # 9.3 K/mm3 (1.8-7.7) H 09/29/21 04:35 Seg Neutrophils # Man 6.6 K/mm3 (1.8-7.7) 09/28/21 00:26 Band Neutrophils # 3.2 K/mm3 09/28/21 00:26 Lymphocytes # (Manual) 0.3 K/mm3 (1.2-5.4) L 09/28/21 00:26 Abs React Lymphs (Man) 0.0 K/mm3 09/28/21 00:26 Monocytes # (Manual) 0.2 K/mm3 (0.0-0.8) 09/28/21 00:26 Eosinophils # (Manual) 0.0 K/mm3 (0.0-0.4) 09/28/21 00:26 Basophils # (Manual) 0.0 K/mm3 (0.0-0.1) 09/28/21 00:26 Metamyelocytes # 0.3 K/mm3 09/28/21 00:26 Myelocytes # 0.0 K/mm3 09/28/21 00:26 Promyelocytes # 0.0 K/mm3 09/28/21 00:26 Blast Cells # 0.0 K/mm3 09/28/21 00:26 WBC Morphology Not Reportable 09/28/21 00:26 Hypersegmented Neuts Not Reportable 09/28/21 00:26 Hyposegmented Neuts Not Reportable 09/28/21 00:26 Hypogranular Neuts Not Reportable 09/28/21 00:26 Smudge Cells Not Reportable 09/28/21 00:26 Toxic Granulation Not Reportable 09/28/21 00:26 Toxic Vacuolation Not Reportable 09/28/21 00:26 Dohle Bodies Not Reportable 09/28/21 00:26 Pelger-Huet Anomaly Not Reportable 09/28/21 00:26 Angelo Rods Not Reportable 09/28/21 00:26 Platelet Estimate Consistent w auto 09/28/21 00:26 Clumped Platelets Not Reportable 09/28/21 00:26 Plt Clumps, EDTA Not Reportable 09/28/21 00:26 Large Platelets Not Reportable 09/28/21 00:26 Giant Platelets Not Reportable 09/28/21 00:26 Platelet Satelliting Not Reportable 09/28/21 00:26 Plt Morphology Comment Not Reportable 09/28/21 00:26 RBC Morphology Normal 09/28/21 00:26 Dimorphic RBCs Not Reportable 09/28/21 00:26 Polychromasia Not Reportable 09/28/21 00:26 Hypochromasia Not Reportable 09/28/21 00:26 Poikilocytosis Not Reportable 09/28/21 00:26 Anisocytosis Not Reportable 09/28/21 00:26 Microcytosis Not Reportable 09/28/21 00:26 Macrocytosis Not Reportable 09/28/21 00:26 Spherocytes Not Reportable 09/28/21 00:26 Pappenheimer Bodies Not Reportable 09/28/21 00:26 Sickle Cells Not Reportable 09/28/21 00:26 Target Cells Not Reportable 09/28/21 00:26 Tear Drop Cells Not Reportable 09/28/21 00:26 Ovalocytes Not Reportable 09/28/21 00:26 Helmet Cells Not Reportable 09/28/21 00:26 [place] Bodies Not Reportable 09/28/21 00:26 [place] Rings Not Reportable 09/28/21 00:26 Tl Cells Not Reportable 09/28/21 00:26 Bite Cells Not Reportable 09/28/21 00:26 Crenated Cell Not Reportable 09/28/21 00:26 Elliptocytes Not Reportable 09/28/21 00:26 Acanthocytes (Spur) Not Reportable 09/28/21 00:26 Rouleaux Not Reportable 09/28/21 00:26 Hemoglobin C Crystals Not Reportable 09/28/21 00:26 Schistocytes Not Reportable 09/28/21 00:26 Malaria parasites Not Reportable 09/28/21 00:26 Dav Bodies Not Reportable 09/28/21 00:26 Hem Pathologist Commnt No 09/28/21 00:26 PT 15.6 Sec. (12.2-14.9) H 09/30/21 13:58 INR 1.12 (0.87-1.13) 09/30/21 13:58 APTT 32.1 Sec. (24.2-36.6) 09/30/21 13:58 VBG pH 7.443 (7.320-7.420) H 09/28/21 00:26 Sodium 135 mmol/L (137-145) L 09/30/21 05:30 Potassium 3.8 mmol/L (3.6-5.0) 09/30/21 05:30 Chloride 100.5 mmol/L (98-107) 09/30/21 05:30 Carbon Dioxide 22 mmol/L (22-30) 09/30/21 05:30 Anion Gap 16 mmol/L 09/30/21 05:30 BUN 31 mg/dL (9-20) H 09/30/21 05:30 Creatinine 1.6 mg/dL (0.8-1.3) H 09/30/21 13:58 Estimated GFR 57 ml/min 09/30/21 13:58 BUN/Creatinine Ratio 18 % 09/30/21 05:30 Glucose 129 mg/dL (75-100) H 09/30/21 05:30 POC Glucose 121 mg/dL (70-105) H 09/30/21 12:17 Lactic Acid 3.30 mmol/L (0.7-2.0) H* 09/30/21 05:30 Calcium 6.7 mg/dL (8.4-10.2) L 09/30/21 05:30 Phosphorus 1.90 mg/dL (2.5-4.5) L 09/30/21 05:30 Magnesium 2.20 mg/dL (1.7-2.3) 09/30/21 05:30 Total Bilirubin 0.60 mg/dL (0.1-1.2) 09/30/21 05:30 AST 194 units/L (5-40) H 09/30/21 05:30 ALT 92 units/L (7-56) H 09/30/21 05:30 Alkaline Phosphatase 73 units/L (35-129) 09/30/21 05:30 Total Creatine Kinase 6636 units/L (55-170) H 09/30/21 05:30 C-Reactive Protein 34.20 mg/dL (0.00-1.30) H 09/29/21 14:34 NT-Pro-B Natriuret Pep 689.6 pg/mL (0-450) H 09/29/21 10:36 Total Protein 6.5 g/dL (6.3-8.2) 09/30/21 05:30 Albumin 2.1 g/dL (3.9-5) L 09/30/21 05:30 Albumin/Globulin Ratio 0.5 % 09/30/21 05:30 TSH 3.700 mlU/mL (0.270-4.200) 09/28/21 00:26 Urine Color Yellow (Yellow) 09/28/21 15:10 Urine Turbidity Slightly-cloudy (Clear) 09/28/21 15:10 Urine pH 5.0 (5.0-7.0) 09/28/21 15:10 Ur Specific [place] 1.011 (1.003-1.030) 09/28/21 15:10 Urine Protein 30 mg/dl mg/dL (Negative) 09/28/21 15:10 Urine Glucose (UA) Neg mg/dL (Negative) 09/28/21 15:10 Urine Ketones Neg mg/dL (Negative) 09/28/21 15:10 Urine Blood Lg (Negative) 09/28/21 15:10 Urine Nitrite Neg (Negative) 09/28/21 15:10 Urine Bilirubin Neg (Negative) 09/28/21 15:10 Urine Urobilinogen < 2.0 mg/dL (<2.0) 09/28/21 15:10 Ur Leukocyte Esterase Neg (Negative) 09/28/21 15:10 Urine WBC (Auto) 6.0 /HPF (0.0-6.0) 09/28/21 15:10 Urine RBC (Auto) 1.0 /HPF (0.0-6.0) 09/28/21 15:10 U Epithel Cells (Auto) 1.0 /HPF (0-13.0) 09/28/21 15:10 Urine Bacteria (Auto) 1+ /HPF (Negative) 09/28/21 15:10 Urine Mucus Few /HPF 09/28/21 15:10 Urine Yeast (Budding) Few /HPF 09/28/21 15:10 Urine Creatinine 153.7 mg/dL (0.1-20.0) H 09/28/21 15:10 Urine Sodium 58 mmol/L 09/28/21 15:10 Urine Chloride 22.1 mmolL (110-250) L 09/28/21 15:10 Random Vancomycin 4.0 ug/mL (0-40.0) 09/30/21 05:30 Coronavirus (PCR) Negative (Negative) 09/29/21 Unknown Microbiology: Microbiology 09/28/21 00:26 Peripheral/Venous Blood Culture - Preliminary NO GROWTH AFTER 48 HOURS 09/28/21 00:26 Peripheral/Venous Blood Culture - Preliminary NO GROWTH AFTER 48 HOURS Valdez/IV: Voiding Method Urinal Active Medications - Current Medications Current Medications: Generic Name Dose Route Start Last Admin Trade Name Freq PRN Reason Stop Dose Admin Acetaminophen 650 mg 09/28/21 02:56 09/30/21 05:47 Acetaminophen 325 Mg Tab PO 650 mg Q6H PRN Administration Pain MILD(1-3)/Fever >100.5/BARRY Apixaban 2.5 mg 09/30/21 22:00 Apixaban 2.5 Mg Tab PO Q12HR LUZ Protocol Dextrose 50 ml 09/29/21 17:00 Dextrose 50% In Water (25gm) 50 Ml Syringe IV Q30MIN PRN Hypoglycemia Protocol Famotidine 20 mg 09/29/21 22:00 09/29/21 22:29 Famotidine 20 Mg Tab PO 20 mg QHS LUZ Administration Ceftriaxone Sodium 2 gm in 100 mls @ 200 mls/hr 09/28/21 22:00 09/29/21 22:36 Rocephin/Ns 2 Gm/100 Ml IV 200 mls/hr Q24H LUZ Administration Protocol NORepinephrine/NS 8 MG-250 ML 8 mg in 250 mls @ 3.75 mls/hr 09/28/21 17:00 09/29/21 03:47 Norepinephrine/Ns 8 Mg-250 Ml (Double Conc) IV 1.07 mcg/min TITRATE LUZ 2 mls/hr Administration Protocol 2 MCG/MIN Sodium Bicarbonate 150 meq/ 1,150 mls @ 125 mls/hr 09/28/21 18:00 09/30/21 05:31 Dextrose IV 125 mls/hr DIRECT LUZ Administration Magnesium Hydroxide 30 ml 09/28/21 02:56 Magnesium Hydroxide (Mom) Oral Liqd Udc PO Q4H PRN Constipation Morphine Sulfate 2 mg 09/28/21 02:56 Morphine 2 Mg/1 Ml Inj IV Q4H PRN Pain, Moderate (4-6) Morphine Sulfate 4 mg 09/28/21 02:56 Morphine 4 Mg/1 Ml Inj IV Q4H PRN Pain , Severe (7-10) Ondansetron HCl 4 mg 09/28/21 02:56 Ondansetron 4 Mg/2 Ml Inj IV Q8H PRN Nausea And Vomiting Sodium Chloride 10 ml 09/28/21 10:00 09/30/21 10:56 Sodium Chloride 0.9% 10 Ml Flush Syringe IV 10 ml BID LUZ Administration Sodium Chloride 10 ml 09/28/21 02:56 Sodium Chloride 0.9% 10 Ml Flush Syringe IV PRN PRN LINE FLUSH Nutrition/Malnutrition Assess - Dietary Evaluation Nutrition/Malnutrition Findings: Nutrition Notes Start: 09/28/21 15:21 Freq: Status: Active Protocol: Document 09/28/21 15:21 GB (Rec: 09/28/21 15:44 GB [id number]) Nutrition Notes Need for Assessment generated from: MD Order,Education Initial or Follow up Assessment Current Diagnosis Sepsis Other Pertinent Diagnosis morbid obesity, lymphedema RLE , generalized weakness Current Diet cardiac Labs/Tests 09/28: BUN 25, creatinine 3.8, Na 130, AST 245, ALT 69, Mg 0. 9 Pertinent Medications reviewed Height 6 ft 1 in Weight 158.757 kg [place] Body Weight (kg) 83.63 BMI 46.1 Intake Prior to Admission Good Weight change and time frame No reported weight change upon admission. Admit weight recorded. Weight Status Morbidly Obese Subjective/Other Information MD consult for diet education. RN note: pt provided with two trays at breakfast BM 09/28. Percent of energy/protein needs met: unable to assess at this time. Pt recently admitted. Burn Absent Trauma Absent GI Symptoms None Food Allergy No Skin Integrity/Comment lymphedema RLE Current % PO Good (75-100%) Minimum of two criteria No #1 Nutrition Diagnosis No nutrition diagnosis at this time Comments: MD order for Diet education. 190% IBW, BMI 46 Is patient on ventilator? No Is Patient Ambulatory and/or Out of Bed Yes REE-([facility] Je[facility]-ambulatory/OOB) [ 3290.885 NUTR.[id number]] Kcal/Kg value to use for calculation 15 Approximate Energy Requirements Using 2381 kcal/Kg Calculation Used for Recommendations Kcal/kg Additional Notes Protein: 0.6-0.8 g/kg @ 159k-127g Fluids: 1 ml/kcal or per MD Nutrition Intervention Change Diet Order: Continue Cardiac Nutrition Support: n/a Add Supplement/Snack (indicate name/kcal n/a /protein ) Teaching Recipient Patient Teaching Methods Handout Education Handouts Provided Provide/review: General Healthy Nutrition packet w/ tips for weight management on f/u and/or when admitted to floor. Goal #1 PO intake of meals to be 75% or greater daily for LOS Goal #2 Provide/review: General Healthy Nutrition packet w/ tips for weight management on f/u and/or when admitted to floor. Follow-Up By: 10/01/21 Additional Comments f/u: Provide/review: General Healthy Nutrition packet w/ tips for weight management <JUAQUIN HARRIS R - Last Filed: 10/01/21 14:20> Assessment and Plan Assessment and plan: I saw and evaluated the patient on 09/30/21. I agree with the findings and the plan of care as documented in the Nurse Practitioner's~note, Hospitalist Physical - Constitutional Vitals: Temp Pulse Resp BP Pulse Ox 97.0 F L 104 H 18 94/49 96 10/01/21 11:59 10/01/21 11:59 10/01/21 11:59 10/01/21 11:59 10/01/21 11:59 Results - Labs CBC & Chem 7: 10/01/21 04:53 10/01/21 04:53 Labs: Laboratory Last Values WBC 13.0 K/mm3 (4.5-11.0) H 10/01/21 04:53 RBC 5.11 M/mm3 (3.65-5.03) H 10/01/21 04:53 Hgb 13.4 gm/dl (11.8-15.2) 10/01/21 04:53 Hct 41.7 % (35.5-45.6) 10/01/21 04:53 MCV 82 fl (84-94) L 10/01/21 04:53 MCH 26 pg (28-32) L 10/01/21 04:53 MCHC 32 % (32-34) 10/01/21 04:53 RDW 17.5 % (13.2-15.2) H 10/01/21 04:53 Plt Count 154 K/mm3 (140-440) 10/01/21 04:53 Lymph % (Auto) 3.4 % (13.4-35.0) L 09/29/21 04:35 [place] % (Auto) 2.9 % (0.0-7.3) 09/29/21 04:35 Eos % (Auto) 3.2 % (0.0-4.3) 09/29/21 04:35 Baso % (Auto) 0.6 % (0.0-1.8) 09/29/21 04:35 Lymph # (Auto) 0.4 K/mm3 (1.2-5.4) L 09/29/21 04:35 [place] # (Auto) 0.3 K/mm3 (0.0-0.8) 09/29/21 04:35 Eos # (Auto) 0.3 K/mm3 (0.0-0.4) 09/29/21 04:35 Baso # (Auto) 0.1 K/mm3 (0.0-0.1) 09/29/21 04:35 Add Manual Diff Complete 09/28/21 00:26 Total Counted 100 09/28/21 00:26 Seg Neutrophils % 89.9 % (40.0-70.0) H 09/29/21 04:35 Seg Neuts % (Manual) 62.0 % (40.0-70.0) 09/28/21 00:26 Band Neutrophils % 30.0 % 09/28/21 00:26 Lymphocytes % (Manual) 3.0 % (13.4-35.0) L 09/28/21 00:26 Monocytes % (Manual) 2.0 % (0.0-7.3) 09/28/21 00:26 Metamyelocytes % 3.0 % 09/28/21 00:26 Nucleated RBC % Not Reportable 09/28/21 00:26 Seg Neutrophils # 9.3 K/mm3 (1.8-7.7) H 09/29/21 04:35 Seg Neutrophils # Man 6.6 K/mm3 (1.8-7.7) 09/28/21 00:26 Band Neutrophils # 3.2 K/mm3 09/28/21 00:26 Lymphocytes # (Manual) 0.3 K/mm3 (1.2-5.4) L 09/28/21 00:26 Abs React Lymphs (Man) 0.0 K/mm3 09/28/21 00:26 Monocytes # (Manual) 0.2 K/mm3 (0.0-0.8) 09/28/21 00:26 Eosinophils # (Manual) 0.0 K/mm3 (0.0-0.4) 09/28/21 00:26 Basophils # (Manual) 0.0 K/mm3 (0.0-0.1) 09/28/21 00:26 Metamyelocytes # 0.3 K/mm3 09/28/21 00:26 Myelocytes # 0.0 K/mm3 09/28/21 00:26 Promyelocytes # 0.0 K/mm3 09/28/21 00:26 Blast Cells # 0.0 K/mm3 09/28/21 00:26 WBC Morphology Not Reportable 09/28/21 00:26 Hypersegmented Neuts Not Reportable 09/28/21 00:26 Hyposegmented Neuts Not Reportable 09/28/21 00:26 Hypogranular Neuts Not Reportable 09/28/21 00:26 Smudge Cells Not Reportable 09/28/21 00:26 Toxic Granulation Not Reportable 09/28/21 00:26 Toxic Vacuolation Not Reportable 09/28/21 00:26 Dohle Bodies Not Reportable 09/28/21 00:26 Pelger-Huet Anomaly Not Reportable 09/28/21 00:26 Angelo Rods Not Reportable 09/28/21 00:26 Platelet Estimate Consistent w auto 09/28/21 00:26 Clumped Platelets Not Reportable 09/28/21 00:26 Plt Clumps, EDTA Not Reportable 09/28/21 00:26 Large Platelets Not Reportable 09/28/21 00:26 Giant Platelets Not Reportable 09/28/21 00:26 Platelet Satelliting Not Reportable 09/28/21 00:26 Plt Morphology Comment Not Reportable 09/28/21 00:26 RBC Morphology Normal 09/28/21 00:26 Dimorphic RBCs Not Reportable 09/28/21 00:26 Polychromasia Not Reportable 09/28/21 00:26 Hypochromasia Not Reportable 09/28/21 00:26 Poikilocytosis Not Reportable 09/28/21 00:26 Anisocytosis Not Reportable 09/28/21 00:26 Microcytosis Not Reportable 09/28/21 00:26 Macrocytosis Not Reportable 09/28/21 00:26 Spherocytes Not Reportable 09/28/21 00:26 Pappenheimer Bodies Not Reportable 09/28/21 00:26 Sickle Cells Not Reportable 09/28/21 00:26 Target Cells Not Reportable 09/28/21 00:26 Tear Drop Cells Not Reportable 09/28/21 00:26 Ovalocytes Not Reportable 09/28/21 00:26 Helmet Cells Not Reportable 09/28/21 00:26 [place] Bodies Not Reportable 09/28/21 00:26 [place] Rings Not Reportable 09/28/21 00:26 [place] Cells Not Reportable 09/28/21 00:26 Bite Cells Not Reportable 09/28/21 00:26 Crenated Cell Not Reportable 09/28/21 00:26 Elliptocytes Not Reportable 09/28/21 00:26 Acanthocytes (Spur) Not Reportable 09/28/21 00:26 Rouleaux Not Reportable 09/28/21 00:26 Hemoglobin C Crystals Not Reportable 09/28/21 00:26 Schistocytes Not Reportable 09/28/21 00:26 Malaria parasites Not Reportable 09/28/21 00:26 Dav Bodies Not Reportable 09/28/21 00:26 Hem Pathologist Commnt No 09/28/21 00:26 PT 15.6 Sec. (12.2-14.9) H 09/30/21 13:58 INR 1.12 (0.87-1.13) 09/30/21 13:58 APTT 32.1 Sec. (24.2-36.6) 09/30/21 13:58 VBG pH 7.443 (7.320-7.420) H 09/28/21 00:26 Sodium 138 mmol/L (137-145) 10/01/21 04:53 Potassium 3.4 mmol/L (3.6-5.0) L 10/01/21 04:53 Chloride 99.8 mmol/L (98-107) 10/01/21 04:53 Carbon Dioxide 25 mmol/L (22-30) 10/01/21 04:53 Anion Gap 17 mmol/L 10/01/21 04:53 BUN 24 mg/dL (9-20) H 10/01/21 04:53 Creatinine 1.2 mg/dL (0.8-1.3) 10/01/21 04:53 Estimated GFR > 60 ml/min 10/01/21 04:53 BUN/Creatinine Ratio 20 % 10/01/21 04:53 Glucose 114 mg/dL (75-100) H 10/01/21 04:53 POC Glucose 110 mg/dL (70-105) H 10/01/21 11:59 Lactic Acid 2.20 mmol/L (0.7-2.0) H* 10/01/21 04:53 Calcium 6.8 mg/dL (8.4-10.2) L 10/01/21 04:53 Phosphorus 1.90 mg/dL (2.5-4.5) L 09/30/21 05:30 Magnesium 2.20 mg/dL (1.7-2.3) 09/30/21 05:30 Total Bilirubin 0.60 mg/dL (0.1-1.2) 09/30/21 05:30 AST 194 units/L (5-40) H 09/30/21 05:30 ALT 92 units/L (7-56) H 09/30/21 05:30 Alkaline Phosphatase 73 units/L (35-129) 09/30/21 05:30 Total Creatine Kinase 6636 units/L (55-170) H 09/30/21 05:30 C-Reactive Protein 34.20 mg/dL (0.00-1.30) H 09/29/21 14:34 NT-Pro-B Natriuret Pep 689.6 pg/mL (0-450) H 09/29/21 10:36 Total Protein 6.5 g/dL (6.3-8.2) 09/30/21 05:30 Albumin 2.1 g/dL (3.9-5) L 09/30/21 05:30 Albumin/Globulin Ratio 0.5 % 09/30/21 05:30 Procalcitonin 66.44 ng/mL (<0.15) 09/29/21 14:34 TSH 3.700 mlU/mL (0.270-4.200) 09/28/21 00:26 Urine Color Yellow (Yellow) 09/28/21 15:10 Urine Turbidity Slightly-cloudy (Clear) 09/28/21 15:10 Urine pH 5.0 (5.0-7.0) 09/28/21 15:10 Ur Specific [place] 1.011 (1.003-1.030) 09/28/21 15:10 Urine Protein 30 mg/dl mg/dL (Negative) 09/28/21 15:10 Urine Glucose (UA) Neg mg/dL (Negative) 09/28/21 15:10 Urine Ketones Neg mg/dL (Negative) 09/28/21 15:10 Urine Blood Lg (Negative) 09/28/21 15:10 Urine Nitrite Neg (Negative) 09/28/21 15:10 Urine Bilirubin Neg (Negative) 09/28/21 15:10 Urine Urobilinogen < 2.0 mg/dL (<2.0) 09/28/21 15:10 Ur Leukocyte Esterase Neg (Negative) 09/28/21 15:10 Urine WBC (Auto) 6.0 /HPF (0.0-6.0) 09/28/21 15:10 Urine RBC (Auto) 1.0 /HPF (0.0-6.0) 09/28/21 15:10 U Epithel Cells (Auto) 1.0 /HPF (0-13.0) 09/28/21 15:10 Urine Bacteria (Auto) 1+ /HPF (Negative) 09/28/21 15:10 Urine Mucus Few /HPF 09/28/21 15:10 Urine Yeast (Budding) Few /HPF 09/28/21 15:10 Urine Creatinine 153.7 mg/dL (0.1-20.0) H 09/28/21 15:10 Urine Sodium 58 mmol/L 09/28/21 15:10 Urine Chloride 22.1 mmolL (110-250) L 09/28/21 15:10 Random Vancomycin 4.0 ug/mL (0-40.0) 09/30/21 05:30 Coronavirus (PCR) Negative (Negative) 09/29/21 Unknown Microbiology: Microbiology 09/28/21 00:26 Peripheral/Venous Blood Culture - Preliminary NO GROWTH AFTER 72 HOURS 09/28/21 00:26 Peripheral/Venous Blood Culture - Preliminary NO GROWTH AFTER 72 HOURS Valdez/IV: Voiding Method Urinal Active Medications - Current Medications Current Medications: Generic Name Dose Route Start Last Admin Trade Name Freq PRN Reason Stop Dose Admin Acetaminophen 650 mg 09/28/21 02:56 09/30/21 20:35 Acetaminophen 325 Mg Tab PO 650 mg Q6H PRN Administration Pain MILD(1-3)/Fever >100.5/BARRY Apixaban 2.5 mg 09/30/21 22:00 10/01/21 10:49 Apixaban 2.5 Mg Tab PO 2.5 mg Q12HR LUZ Administration Protocol Dextrose 50 ml 09/29/21 17:00 Dextrose 50% In Water (25gm) 50 Ml Syringe IV Q30MIN PRN Hypoglycemia Protocol Famotidine 20 mg 09/29/21 22:00 09/30/21 22:23 Famotidine 20 Mg Tab PO 20 mg QHS LUZ Administration Ceftriaxone Sodium 2 gm in 100 mls @ 200 mls/hr 09/28/21 22:00 09/30/21 22:24 Rocephin/Ns 2 Gm/100 Ml IV 200 mls/hr Q24H LUZ Administration Protocol Sodium Bicarbonate 150 meq/ 1,150 mls @ 125 mls/hr 09/28/21 18:00 09/30/21 22:25 Dextrose IV 125 mls/hr DIRECT LUZ Administration Vancomycin HCl 2,000 mg/ 540 mls @ 250 mls/hr 10/01/21 14:00 Sodium Chloride IV Q24H LUZ Magnesium Hydroxide 30 ml 09/28/21 02:56 Magnesium Hydroxide (Mom) Oral Liqd Udc PO Q4H PRN Constipation Morphine Sulfate 2 mg 09/28/21 02:56 09/30/21 20:48 Morphine 2 Mg/1 Ml Inj IV 2 mg Q4H PRN Administration Pain, Moderate (4-6) Ondansetron HCl 4 mg 09/28/21 02:56 09/30/21 20:48 Ondansetron 4 Mg/2 Ml Inj IV 4 mg Q8H PRN Administration Nausea And Vomiting Sodium Chloride 10 ml 09/28/21 10:00 10/01/21 10:49 Sodium Chloride 0.9% 10 Ml Flush Syringe IV 10 ml BID LUZ Administration Sodium Chloride 10 ml 09/28/21 02:56 Sodium Chloride 0.9% 10 Ml Flush Syringe IV PRN PRN LINE FLUSH Nutrition/Malnutrition Assess - Dietary Evaluation Nutrition/Malnutrition Findings: Nutrition Notes Start: 09/28/21 15:21 Freq: Status: Active Protocol: Document 10/01/21 10:27 GB (Rec: 10/01/21 10:34 GB [id number]) Nutrition Notes Initial or Follow up Brief Note Current Diagnosis Sepsis Other Pertinent Diagnosis morbid obesity, lymphedema RLE , generalized weakness Current Diet cardiac Labs/Tests 10/01: K 3.4, BUN 24, glucose 114, Ca 6.8 Pertinent Medications D5(PRN), Na Bicarbonate/D5 1150ml (196kcal) Height 6 ft 1 in Weight 198.4 kg [place] Body Weight (kg) 83.63 BMI 57.6 Weight change and time frame 10/01 198.4kg Gain of +40kg Need reweigh to confirm weight change. Weight Status Morbidly Obese Subjective/Other Information MD consult for diet education. 10/01: weight management nutrition education packet reviewed/provided BM 09/30. Percent of energy/protein needs met: unable to assess. No PO intake recorded at time of assessment. Burn Absent Trauma Absent GI Symptoms None Food Allergy No Minimum of two criteria No #1 Nutrition Diagnosis No nutrition diagnosis at this time Nutrition Intervention Change Diet Order: Continue Cardiac Nutrition Support: n/a Add Supplement/Snack (indicate name/kcal n/a /protein ) Teaching Recipient Patient Learning Readiness Good Teaching Methods Discussion,Handout Response to Teaching Verbalize understanding Education Handouts Provided Tips for weight management reviewed/provided Barriers to Learning No Barriers Goal #1 PO intake of meals to be 75% or greater daily for LOS Goal #2 Provide/review: General Healthy Nutrition packet w/ tips for weight management on f/u and/or when admitted to floor. 10/01: met, resolved Follow-Up By: 11/02/21 Additional Comments f/u: po intake, weight
[2021-09-30] MEDS: FAMOTIDINE 20 MG TAB PO SCH (22:23)
[2021-09-30] MEDS: cefTRIAXone/NS 2 GM/100 ML 2 GM/100 ML BAG IV SCH (22:24)
[2021-09-30] MEDS: APIXABAN 2.5 MG TAB PO SCH (22:24)
[2021-10-01 06:07] LABS: Hematocrit 41.7 % (35.5-45.6); Hemoglobin 13.4 gm/dl (11.8-15.2); Mean Corpuscular HGB Conc 32 % (32-34); Mean Corpuscular Volume 82 fl (84-94); Platelet Count 154 K/mm3 (140-440); Red Blood Count 5.11 M/mm3 (3.65-5.03); Red Cell Distribution Width 17.5 % (13.2-15.2)
[2021-10-01 06:18] LABS: BUN/Creatinine Ratio 20; Blood Urea Nitrogen 24 mg/dL (9-20); Calcium 6.8 mg/dL (8.4-10.2); Hemolysis Index 3
[2021-10-01] MEDS: APIXABAN 2.5 MG TAB PO SCH ×2 (10:49→22:52)
--- NOTE | 2021-10-01 13:16 | Progress Note ---
Assessment and Plan Cultures: Blood culture no growth so far A/P: 46-year-old man past medical history morbid obesity, chronic edema of the right leg presented to hospital with: #Acute sepsis: Present with tachycardia and fevers. Secondary to RLE celluliti s. #RLE cellulitis: Likely secondary to chronic edema. If having frequent recurrences, could consider antibiotic prophylaxis. Otherwise, encourage edema reduction strategies. #Morbid obesity Recs: -Encourage edema reduction strategies such as elevating the leg, compression stockings, weight loss. -Agree with current antibiotics with vancomycin and ceftriaxone -Random vancomycin levels have been low, likely due to his weight and possibly contributing to poor response from fever/white count perspective. -Follow fever curve -OK to DC with PO Bactrim DS q12h and Keflex 1g q6h due to weight. Thank you for the consult, we will sign off. Please call with questions Meryl Ralph MD [facility] O: [phone] F: [phone] Subjective Date of service: 10/01/21 Principal diagnosis: Septic shock; RLExt cellulitis; Morbid obesity; SAL; Rhabdomyolysis Interval history: Febrile last night, lower afebrile since then. White count 13 is approximately the same as previous. Objective - Exam Narrative Exam: Physical Exam: Constitutional: Alert, cooperative. No acute distress Head, Ears, Nose: Normocephalic, atraumatic. External ears, nose normal Eyes: Conjunctivae/corneas clear. No icterus. No ptosis. Neck: Supple, no meningeal signs Oral: dentition fair, no thrush Cardiovascular: S1, S2 normal. Respiratory: Good air entry, clear to auscultation bilaterally GI: Soft, non-tender; bowel sounds normal. No peritoneal signs. Musculoskeletal: No pedal edema, no cyanosis. Skin: No rash or abscess Hem/Lymphatic: No palpable cervical or supraclavicular nodes. No lymphangitis Psych: Mood ok. Affect normal Neurological: Awake, alert, oriented. No gross abnormality - Constitutional Vitals: Vital Signs Temp Pulse Resp BP Pulse Ox 97.0 F L 104 H 18 94/49 96 10/01/21 11:59 10/01/21 11:59 10/01/21 11:59 10/01/21 11:59 10/01/21 11:59 Temperature -Last 24 Hours Temperature 97.0 F Temperature 97.0 F Temperature 97.7 F Temperature 98.5 F Temperature 99.7 F Temperature 101.1 F Temperature 101.1 F Temperature 99.0 F - Labs CBC & Chem 7: 10/01/21 04:53 10/01/21 04:53 Labs: Abnormal lab results 09/30/21 09/30/21 09/30/21 Range/Units 13:58 13:58 13:58 WBC 12.6 H (4.5-11.0) K/mm3 RBC 5.75 H (3.65-5.03) M/mm3 Hct 47.4 H (35.5-45.6) % MCV 83 L (84-94) fl MCH 26 L (28-32) pg RDW 17.5 H (13.2-15.2) % PT 15.6 H (12.2-14.9) Sec. Potassium (3.6-5.0) mmol/L BUN (9-20) mg/dL Creatinine 1.6 H (0.8-1.3) mg/dL Glucose (75-100) mg/dL POC Glucose (70-105) mg/dL Lactic Acid (0.7-2.0) mmol/L Calcium (8.4-10.2) mg/dL 09/30/21 10/01/21 10/01/21 Range/Units 16:44 04:53 04:53 WBC 13.0 H (4.5-11.0) K/mm3 RBC 5.11 H (3.65-5.03) M/mm3 Hct (35.5-45.6) % MCV 82 L (84-94) fl MCH 26 L (28-32) pg RDW 17.5 H (13.2-15.2) % PT (12.2-14.9) Sec. Potassium 3.4 L (3.6-5.0) mmol/L BUN 24 H (9-20) mg/dL Creatinine (0.8-1.3) mg/dL Glucose 114 H (75-100) mg/dL POC Glucose 121 H (70-105) mg/dL Lactic Acid (0.7-2.0) mmol/L Calcium 6.8 L (8.4-10.2) mg/dL 10/01/21 10/01/21 10/01/21 Range/Units 04:53 07:16 11:59 WBC (4.5-11.0) K/mm3 RBC (3.65-5.03) M/mm3 Hct (35.5-45.6) % MCV (84-94) fl MCH (28-32) pg RDW (13.2-15.2) % PT (12.2-14.9) Sec. Potassium (3.6-5.0) mmol/L BUN (9-20) mg/dL Creatinine (0.8-1.3) mg/dL Glucose (75-100) mg/dL POC Glucose 110 H 110 H (70-105) mg/dL Lactic Acid 2.20 H* (0.7-2.0) mmol/L Calcium (8.4-10.2) mg/dL
[2021-10-01] MEDS ORDERED: VANCOMYCIN 2,000 MG in SODIUM CHLORIDE 0.9% 500 ML 500 ML IV SCH (14:00)
--- NOTE | 2021-10-01 14:30 | Progress Note ---
Assessment and Plan This is a 36-cig[age]-yzo AA male with past medical history of morbid obesity, lymphedema of the right lower extremity brought into the ED from the correction with complaints of generalized weakness and RLE pain. Patient was found to be septic secondary to RLE cellulitis, SAL with with hypotension, and tachycardia. Patient was admitted to the ICU for further management. Assessment and plan: --Sepsis with shock Continue IV fluid, status post pressor support Likely due to lower extremity cellulitis, continue empiric antibiotics and follow culture ID following --Rhabdomyolysis - Cr. Kinase was as high as ~ 10K - Continue rehydration with cont. IVF - will continue to trend CK --Acute kidney injury (SAL) most likely ATN - Nephrology on consult, - Strict intake and output - Avoid nephrotoxic medications; Renally dose medications - Continue IVF for now - Monitor and replace electrolytes as needed -- RLE Cellulitis with lymphedema - 09/28 RLE US shows no evidence of DVT - 09/[address] shows right lower extremity cellulitis. Reactive adenopathy in the proximal right thigh right groin and right hemipelvis -Continue empiric antibiotics, IV fluids - ID consulted, pending recommendations - wound care consult - Monitor CBCs and fever curve - Continue to trend lactic acid --Hypomagnesemia, repleted --Morbid obesity, dietary and exercise recommendation when clinically more stable --DVT prophylaxis, heparin --Full CODE STATUS The high probability of a clinically significant, sudden or life threatening deterioration of the [multiple] system(s) required my full and direct attention, intervention and personal management. The aggregate critical care time was [60] minutes. This time is in addition to time spent performing reported procedures but includes the following: [x] Data Review and interpretation [x] Patient assessment and monitoring of vital signs [x] Documentation [x] Medication orders and management Daily clinical course: 09/28/21: Initiate bicarbonate drip for declining renal function and rhabdomyolysis, replete magnesium, follow BMP, consult nephrology, initiate pressor support as blood pressure not responding to fluids only, continue empiric antibiotics, consult critical care. 09/29/21- Patient is off pressors this am, remains slightly tachycardic on a bcarb gtt. Patient remains febrile with worsening Lactic acidosis, WBCs wnl. Continue current IV ABx regimen, ID consulted for RLE cellulitis and fever. Will continue to trend lactic acid and fever curve. 09/30/21- Patient remains febrile overnight, maintain BP no longer on pressors, Lactic acidosis is improving. Continue bcarb gtt and current IV ABx per ID. Worsen thrombocytopenia this am, HIT panel ordered, heparin was switched to PO Eliquis BID. D/w CCm okay to transfer patient to Telemetry. 10/01/21; creatinine 1.2 today, BP stable. Ordered for PT eval. wait for antibiotic recommendation from ID for discharge planning. Subjective Date of service: 10/01/21 Principal diagnosis: Septic shock; RLExt cellulitis; Morbid obesity; SAL; Rhabdomyolysis Interval history: Patient seen and examined. Medical records and medication list reviewed. No acute event overnight noted by the RN. Patient denies any chest pain or difficulty breathing. Serum creatinine continue to be stable Vitals noted to be stable also Discussed plan of care at bedside with patient. Objective - Exam Narrative Exam: General appearance: Present: no acute distress, well-nourished, obese - EENT Eyes: Present: PERRL, EOM intact ENT: hearing intact, clear oral mucosa - Neck Neck: Present: normal ROM - Respiratory Respiratory effort: normal Respiratory: bilateral: diminished - Cardiovascular Rhythm: regular Heart Sounds: Present: S1 & S2 - Extremities Extremities: no ischemia, pulses intact, pulses symmetrical Extremity abnormal: edema - Peripheral Assessment Right Lower Extremity Edema Type: Non-pitting Edema Degree: 4+ Capillary Refill: < 3 seconds Skin Temperature: Warm Generalized Edema Type: Non-pitting Edema Degree: 1+ Capillary Refill: < 3 seconds Skin Temperature: Warm Peripheral Pulses: within normal limits - Abdominal General gastrointestinal: soft, non-tender, normal bowel sounds - Integumentary Integumentary: Present: warm, dry - Psychiatric Psychiatric: cooperative - Neurologic Neurologic: CNII-XII intact, moves all extremities - Constitutional Vitals: Vital Signs - 12hr 10/01/21 10/01/21 10/01/21 03:40 07:15 11:55 Temperature 97.7 F 97.0 F L Pulse Rate 104 H 104 H Pulse Rate [ 110 H Left Radial] Pulse Rate [ 110 H Right Radial] Respiratory 20 20 15 Rate Blood Pressure 93/56 91/51 O2 Sat by Pulse 93 98 94 Oximetry 10/01/21 11:59 Temperature 97.0 F L Pulse Rate 104 H Pulse Rate [ Left Radial] Pulse Rate [ Right Radial] Respiratory 18 Rate Blood Pressure 94/49 O2 Sat by Pulse 96 Oximetry - Labs CBC & Chem 7: 10/01/21 04:53 10/01/21 04:53 Labs: Abnormal lab results 09/30/21 09/30/21 09/30/21 Range/Units 13:58 13:58 13:58 WBC 12.6 H (4.5-11.0) K/mm3 RBC 5.75 H (3.65-5.03) M/mm3 Hct 47.4 H (35.5-45.6) % MCV 83 L (84-94) fl MCH 26 L (28-32) pg RDW 17.5 H (13.2-15.2) % PT 15.6 H (12.2-14.9) Sec. Potassium (3.6-5.0) mmol/L BUN (9-20) mg/dL Creatinine 1.6 H (0.8-1.3) mg/dL Glucose (75-100) mg/dL POC Glucose (70-105) mg/dL Lactic Acid (0.7-2.0) mmol/L Calcium (8.4-10.2) mg/dL 09/30/21 10/01/21 10/01/21 Range/Units 16:44 04:53 04:53 WBC 13.0 H (4.5-11.0) K/mm3 RBC 5.11 H (3.65-5.03) M/mm3 Hct (35.5-45.6) % MCV 82 L (84-94) fl MCH 26 L (28-32) pg RDW 17.5 H (13.2-15.2) % PT (12.2-14.9) Sec. Potassium 3.4 L (3.6-5.0) mmol/L BUN 24 H (9-20) mg/dL Creatinine (0.8-1.3) mg/dL Glucose 114 H (75-100) mg/dL POC Glucose 121 H (70-105) mg/dL Lactic Acid (0.7-2.0) mmol/L Calcium 6.8 L (8.4-10.2) mg/dL 11/12/21 11/12/21 11/12/21 Range/Units 04:53 07:16 11:59 WBC (4.5-11.0) K/mm3 RBC (3.65-5.03) M/mm3 Hct (35.5-45.6) % MCV (84-94) fl MCH (28-32) pg RDW (13.2-15.2) % PT (12.2-14.9) Sec. Potassium (3.6-5.0) mmol/L BUN (9-20) mg/dL Creatinine (0.8-1.3) mg/dL Glucose (75-100) mg/dL POC Glucose 110 H 110 H (70-105) mg/dL Lactic Acid 2.20 H* (0.7-2.0) mmol/L Calcium (8.4-10.2) mg/dL
--- NOTE | 2021-10-01 14:35 | Progress Note ---
Assessment and Plan Septic shock, probably secondary to right lower extremity cellulitis Right lower extremity cellulitis Morbid obesity Metabolic acidosis Hemoconcentration Hyponatremia Acute kidney injury Elevated serum transaminases Rhabdomyolysis Lactic acidosis Hypomagnesemia - continue wound care per RN/WCT - antiinfective's per ID recommendations - continue care as below otherwise; - supplemental oxygen to keep O2 sats > 90% - prn bronchodilators (ADONAY) with pulm hygiene per RT - continue to avoid nephrotoxins, renally dose all medications - mobility protocols to prevent pressure ulcers - PT/OT as tolerated - continue accuchecks with glycemic control per SSI for target blood glucose < 180 mg/dL - tobacco abstinence strongly counseled at the bedside - home oxygen evaluation at discharge - GI & VTE prophylaxis - Flu & pneumovax per protocol - prn analgesia per pain score - continue other care per attending / other consultants ... re-evaluate in am & prn Subjective Date of service: 10/01/21 Principal diagnosis: Septic shock; RLExt cellulitis; Morbid obesity; SAL; Rhabdomyolysis Interval history: Patient is seen today for: Septic shock; Right lower extremity cellulitis; Morbid obesity; SAL; Rhabdomyolysis Seen and examined at bedside; 24hour events reviewed; nursing and respiratory ca re staff consulted; no adverse overnight events reported to me; resting peacefully in bed; about to begin PT/OT; denies acute chest pain or SOB Objective Vital Signs - 12hr 10/01/21 10/01/21 10/01/21 03:40 07:15 11:55 Temperature 97.7 F 97.0 F L Pulse Rate 104 H 104 H Pulse Rate [ 110 H Left Radial] Pulse Rate [ 110 H Right Radial] Respiratory 20 20 15 Rate Blood Pressure 93/56 91/51 O2 Sat by Pulse 93 98 94 Oximetry 10/01/21 11:59 Temperature 97.0 F L Pulse Rate 104 H Pulse Rate [ Left Radial] Pulse Rate [ Right Radial] Respiratory 18 Rate Blood Pressure 94/49 O2 Sat by Pulse 96 Oximetry Constitutional: no acute distress Eyes: non-icteric ENT: oropharynx moist Neck: supple, no lymphadenopathy, no JVD Effort: mildly labored Ascultation: Bilateral: clear, diminished breath sounds Percussion: Bilateral: not dull Cardiovascular: regular rate and rhythm Gastrointestinal: normoactive bowel sounds, soft, non-tender, non-distended (protuberant) Integumentary: rash (stasis dermatitis; RLExt Lymphedema) Extremities: no cyanosis, pulses normal, no ischemia or petechiae, other (lymphedema to right leg) Neurologic: non-focal exam (grossly), pupils equal and round, CN II-XII normal Psychiatric: mood appropriate, affect normal CBC and BMP: 10/01/21 04:53 10/01/21 04:53 ABG, PT/INR, D-dimer: PT/INR, D-dimer PT 15.6 Sec. (12.2-14.9) H 09/30/21 13:58 INR 1.12 (0.87-1.13) 09/30/21 13:58 Abnormal lab findings: Abnormal Labs 09/28/21 09/28/21 09/28/21 00:26 00:26 00:26 WBC RBC 5.70 H Hgb 15.6 H Hct 47.0 H MCV 83 L MCH 27 L RDW 16.8 H Plt Count Lymph % (Auto) Lymph # (Auto) Seg Neutrophils % Lymphocytes % (Manual) 3.0 L Seg Neutrophils # Lymphocytes # (Manual) 0.3 L PT INR VBG pH Sodium 130 L Potassium Carbon Dioxide 14 L BUN 25 H Creatinine 3.8 H Glucose POC Glucose Lactic Acid 4.00 H* Calcium Phosphorus Magnesium AST 245 H ALT 69 H Total Creatine Kinase C-Reactive Protein NT-Pro-B Natriuret Pep Albumin 3.1 L Urine Creatinine Urine Chloride 09/28/21 09/28/21 09/28/21 00:26 00:26 00:26 WBC RBC Hgb Hct MCV MCH RDW Plt Count Lymph % (Auto) Lymph # (Auto) Seg Neutrophils % Lymphocytes % (Manual) Seg Neutrophils # Lymphocytes # (Manual) PT 18.5 H INR 1.39 H VBG pH 7.443 H Sodium Potassium Carbon Dioxide BUN Creatinine Glucose POC Glucose Lactic Acid Calcium Phosphorus Magnesium 0.90 L* AST ALT Total Creatine Kinase 8677 H C-Reactive Protein NT-Pro-B Natriuret Pep Albumin Urine Creatinine Urine Chloride 09/28/21 09/28/21 09/28/21 02:36 14:55 15:10 WBC RBC Hgb Hct MCV MCH RDW Plt Count Lymph % (Auto) Lymph # (Auto) Seg Neutrophils % Lymphocytes % (Manual) Seg Neutrophils # Lymphocytes # (Manual) PT INR VBG pH Sodium Potassium Carbon Dioxide BUN Creatinine Glucose POC Glucose Lactic Acid 3.90 H* 5.00 H* Calcium Phosphorus Magnesium AST ALT Total Creatine Kinase C-Reactive Protein NT-Pro-B Natriuret Pep Albumin Urine Creatinine 153.7 H Urine Chloride 22.1 L 09/28/21 09/29/21 09/29/21 17:51 01:02 04:35 WBC RBC 5.26 H Hgb Hct MCV 83 L MCH 27 L RDW 17.3 H Plt Count Lymph % (Auto) 3.4 L Lymph # (Auto) 0.4 L Seg Neutrophils % 89.9 H Lymphocytes % (Manual) Seg Neutrophils # 9.3 H Lymphocytes # (Manual) PT INR VBG pH Sodium 134 L Potassium Carbon Dioxide 16 L BUN 35 H Creatinine 3.5 H Glucose 69 L POC Glucose Lactic Acid 3.20 H* Calcium 7.4 L Phosphorus Magnesium AST ALT Total Creatine Kinase C-Reactive Protein NT-Pro-B Natriuret Pep Albumin Urine Creatinine Urine Chloride 09/29/21 09/29/21 09/29/21 04:35 04:35 04:35 WBC RBC Hgb Hct MCV MCH RDW Plt Count Lymph % (Auto) Lymph # (Auto) Seg Neutrophils % Lymphocytes % (Manual) Seg Neutrophils # Lymphocytes # (Manual) PT 18.3 H INR 1.37 H VBG pH Sodium 136 L Potassium Carbon Dioxide 19 L BUN 34 H Creatinine 3.0 H Glucose POC Glucose Lactic Acid 5.00 H* Calcium 7.1 L Phosphorus Magnesium AST ALT Total Creatine Kinase C-Reactive Protein NT-Pro-B Natriuret Pep Albumin Urine Creatinine Urine Chloride 09/29/21 09/29/21 09/29/21 04:35 10:36 10:36 WBC RBC Hgb Hct MCV MCH RDW Plt Count Lymph % (Auto) Lymph # (Auto) Seg Neutrophils % Lymphocytes % (Manual) Seg Neutrophils # Lymphocytes # (Manual) PT INR VBG pH Sodium Potassium Carbon Dioxide BUN Creatinine Glucose POC Glucose Lactic Acid 4.30 H* Calcium Phosphorus Magnesium AST ALT Total Creatine Kinase 04050 H C-Reactive Protein NT-Pro-B Natriuret Pep 689.6 H Albumin Urine Creatinine Urine Chloride 09/29/21 09/29/21 09/30/21 14:34 22:02 05:30 WBC 12.5 H RBC 5.16 H Hgb Hct MCV 81 L MCH 27 L RDW 17.1 H Plt Count 92 L Lymph % (Auto) Lymph # (Auto) Seg Neutrophils % Lymphocytes % (Manual) Seg Neutrophils # Lymphocytes # (Manual) PT INR VBG pH Sodium Potassium Carbon Dioxide BUN Creatinine Glucose POC Glucose 115 H Lactic Acid Calcium Phosphorus Magnesium AST ALT Total Creatine Kinase C-Reactive Protein 34.20 H NT-Pro-B Natriuret Pep Albumin Urine Creatinine Urine Chloride 09/30/21 09/30/21 09/30/21 05:30 05:30 08:07 WBC RBC Hgb Hct MCV MCH RDW Plt Count Lymph % (Auto) Lymph # (Auto) Seg Neutrophils % Lymphocytes % (Manual) Seg Neutrophils # Lymphocytes # (Manual) PT INR VBG pH Sodium 135 L Potassium Carbon Dioxide BUN 31 H Creatinine 1.7 H Glucose 129 H POC Glucose 123 H Lactic Acid 3.30 H* Calcium 6.7 L Phosphorus 1.90 L Magnesium AST 194 H ALT 92 H Total Creatine Kinase 6636 H C-Reactive Protein NT-Pro-B Natriuret Pep Albumin 2.1 L Urine Creatinine Urine Chloride 09/30/21 09/30/21 09/30/21 12:17 13:58 13:58 WBC 12.6 H RBC 5.75 H Hgb Hct 47.4 H MCV 83 L MCH 26 L RDW 17.5 H Plt Count Lymph % (Auto) Lymph # (Auto) Seg Neutrophils % Lymphocytes % (Manual) Seg Neutrophils # Lymphocytes # (Manual) PT 15.6 H INR VBG pH Sodium Potassium Carbon Dioxide BUN Creatinine Glucose POC Glucose 121 H Lactic Acid Calcium Phosphorus Magnesium AST ALT Total Creatine Kinase C-Reactive Protein NT-Pro-B Natriuret Pep Albumin Urine Creatinine Urine Chloride 09/30/21 09/30/21 10/01/21 13:58 16:44 04:53 WBC 13.0 H RBC 5.11 H Hgb Hct MCV 82 L MCH 26 L RDW 17.5 H Plt Count Lymph % (Auto) Lymph # (Auto) Seg Neutrophils % Lymphocytes % (Manual) Seg Neutrophils # Lymphocytes # (Manual) PT INR VBG pH Sodium Potassium Carbon Dioxide BUN Creatinine 1.6 H Glucose POC Glucose 121 H Lactic Acid Calcium Phosphorus Magnesium AST ALT Total Creatine Kinase C-Reactive Protein NT-Pro-B Natriuret Pep Albumin Urine Creatinine Urine Chloride 10/01/21 10/01/21 10/01/21 04:53 04:53 07:16 WBC RBC Hgb Hct MCV MCH RDW Plt Count Lymph % (Auto) Lymph # (Auto) Seg Neutrophils % Lymphocytes % (Manual) Seg Neutrophils # Lymphocytes # (Manual) PT INR VBG pH Sodium Potassium 3.4 L Carbon Dioxide BUN 24 H Creatinine Glucose 114 H POC Glucose 110 H Lactic Acid 2.20 H* Calcium 6.8 L Phosphorus Magnesium AST ALT Total Creatine Kinase C-Reactive Protein NT-Pro-B Natriuret Pep Albumin Urine Creatinine Urine Chloride 10/01/21 11:59 WBC RBC Hgb Hct MCV MCH RDW Plt Count Lymph % (Auto) Lymph # (Auto) Seg Neutrophils % Lymphocytes % (Manual) Seg Neutrophils # Lymphocytes # (Manual) PT INR VBG pH Sodium Potassium Carbon Dioxide BUN Creatinine Glucose POC Glucose 110 H Lactic Acid Calcium Phosphorus Magnesium AST ALT Total Creatine Kinase C-Reactive Protein NT-Pro-B Natriuret Pep Albumin Urine Creatinine Urine Chloride Allied health notes reviewed: nursing
--- NOTE | 2021-10-01 15:01 | Progress Note ---
Assessment and Plan - Patient Problems (1) Acute kidney injury Current Visit: Yes Status: Acute Plan to address problem: possibly prerenal in nature in the setting of sepsis and right lower extremity cellulitis. Continue with current IV fluid hydration along with appropriate antibiotic therapy which should be dosed per renal function. Will obtain renal ultrasound along with urinalysis and urine electrolytes for further evaluation. We will follow up closely. Please avoid all nephrotoxins and maintain mean her toe pressures above 65 mmHg. overall renal function is showing steady improvement and I would continue current regimen at this time. (2) Cellulitis of right lower extremity Current Visit: Yes Status: Acute Plan to address problem: continue IV antibiotics Per primary team recommendations. Please dose antibiotics appropriately for his decreased renal function. Follow-up blood and wound cultures at this time. (3) Rhabdomyolysis Current Visit: Yes Status: Acute Plan to address problem: agree with current IV fluid hydration and follow-up of CPK levels at this time. (4) Sepsis Current Visit: Yes Status: Acute Plan to address problem: follow-up culture studies at this time. Currently on IV antibiotics. Agree with current IV fluid hydration. Will monitor closely. CT of the right lower extremity did not show evidence of acute osteomyelitis but however this scan was done without contrast secondary to decreased renal function. Subjective Date of service: 10/01/21 Principal diagnosis: Septic shock; RLExt cellulitis; Morbid obesity; SAL; Rhabdomyolysis Interval history: no acute changes. Renal function remained stable and is showing improvement. Objective - Vital Signs Vital signs: Vital Signs - 12hr 10/01/21 10/01/21 10/01/21 03:40 07:15 11:55 Temperature 97.7 F 97.0 F L Pulse Rate 104 H 104 H Pulse Rate [ 110 H Left Radial] Pulse Rate [ 110 H Right Radial] Respiratory 20 20 15 Rate Blood Pressure 93/56 91/51 O2 Sat by Pulse 93 98 94 Oximetry 10/01/21 11:59 Temperature 97.0 F L Pulse Rate 104 H Pulse Rate [ Left Radial] Pulse Rate [ Right Radial] Respiratory 18 Rate Blood Pressure 94/49 O2 Sat by Pulse 96 Oximetry - General Appearance General appearance: appears stated age, obese EENT: ATNC Neck: no JVD Respiratory: Present: Clear to Ascultation Cardiology: regular Gastrointestinal: normal Integumentary: warm and dry Neurologic: no focal deficit Musculoskeletal: deferred Psychiatric: cooperative - Lab 10/01/21 04:53 10/01/21 04:53 Most recent lab results Calcium 6.8 mg/dL (8.4-10.2) L 10/01/21 04:53 Phosphorus 1.90 mg/dL (2.5-4.5) L 09/30/21 05:30 Magnesium 2.20 mg/dL (1.7-2.3) 09/30/21 05:30 Urine Creatinine 153.7 mg/dL (0.1-20.0) H 09/28/21 15:10 Urine Sodium 58 mmol/L 09/28/21 15:10 Medications & Allergies - Medications Allergies/Adverse Reactions: Allergies No Known Allergies Allergy (Verified 09/27/21 22:52) Home Medications: Home Medications Medication Instructions Recorded Confirmed Last Taken Type No Known Home Medications [No 10/01/21 10/01/21 Unknown History Reported Home Medications] Active Medications: Generic Name Dose Route Start Last Admin Trade Name Freq PRN Reason Stop Dose Admin Acetaminophen 650 mg 09/28/21 02:56 09/30/21 20:35 Acetaminophen 325 Mg Tab PO 650 mg Q6H PRN Administration Pain MILD(1-3)/Fever >100.5/BARRY Apixaban 2.5 mg 09/30/21 22:00 10/01/21 10:49 Apixaban 2.5 Mg Tab PO 2.5 mg Q12HR LUZ Administration Protocol Dextrose 50 ml 09/29/21 17:00 Dextrose 50% In Water (25gm) 50 Ml Syringe IV Q30MIN PRN Hypoglycemia Protocol Famotidine 20 mg 09/29/21 22:00 09/30/21 22:23 Famotidine 20 Mg Tab PO 20 mg QHS LUZ Administration Ceftriaxone Sodium 2 gm in 100 mls @ 200 mls/hr 09/28/21 22:00 09/30/21 22:24 Rocephin/Ns 2 Gm/100 Ml IV 200 mls/hr Q24H LUZ Administration Protocol Sodium Bicarbonate 150 meq/ 1,150 mls @ 125 mls/hr 09/28/21 18:00 09/30/21 22:25 Dextrose IV 125 mls/hr DIRECT LUZ Administration Vancomycin HCl 2,000 mg/ 540 mls @ 250 mls/hr 10/01/21 14:00 Sodium Chloride IV Q24H LUZ Magnesium Hydroxide 30 ml 09/28/21 02:56 Magnesium Hydroxide (Mom) Oral Liqd Udc PO Q4H PRN Constipation Morphine Sulfate 2 mg 09/28/21 02:56 09/30/21 20:48 Morphine 2 Mg/1 Ml Inj IV 2 mg Q4H PRN Administration Pain, Moderate (4-6) Ondansetron HCl 4 mg 09/28/21 02:56 09/30/21 20:48 Ondansetron 4 Mg/2 Ml Inj IV 4 mg Q8H PRN Administration Nausea And Vomiting Sodium Chloride 10 ml 09/28/21 10:00 10/01/21 10:49 Sodium Chloride 0.9% 10 Ml Flush Syringe IV 10 ml BID LUZ Administration Sodium Chloride 10 ml 09/28/21 02:56 Sodium Chloride 0.9% 10 Ml Flush Syringe IV PRN PRN LINE FLUSH
[2021-10-01] MEDS: cefTRIAXone/NS 2 GM/100 ML 2 GM/100 ML BAG IV SCH (22:52)
[2021-10-01] MEDS: FAMOTIDINE 20 MG TAB PO SCH (22:52)
[2021-10-02 05:46] LABS: Hematocrit 39.8 % (35.5-45.6); Hemoglobin 13.1 gm/dl (11.8-15.2); Mean Corpuscular HGB Conc 33 % (32-34); Mean Corpuscular Volume 83 fl (84-94); Platelet Count 166 K/mm3 (140-440); Red Blood Count 4.81 M/mm3 (3.65-5.03); Red Cell Distribution Width 17.4 % (13.2-15.2)
[2021-10-02 06:03] LABS: BUN/Creatinine Ratio 18; Blood Urea Nitrogen 20 mg/dL (9-20); Calcium 7.2 mg/dL (8.4-10.2); Hemolysis Index 0
[2021-10-02] MEDS: APIXABAN 2.5 MG TAB PO SCH ×2 (10:08→23:26)
--- NOTE | 2021-10-02 10:18 | Progress Note ---
Assessment and Plan - Patient Problems (1) Hypokalemia Current Visit: Yes Status: Acute Plan to address problem: Supplement potassium and follow-up levels. Patient can be discharged on oral potassium supplementation and follow-up potassium level as an outpatient (2) Hypotension Current Visit: Yes Status: Acute Plan to address problem: Improved with volume repletion. Blood pressure still low normal but much better than on presentation (3) Acute kidney injury Current Visit: Yes Status: Acute Plan to address problem: Acute kidney injury probably acute tubular necrosis secondary to rhabdomyolysis and hypotension. Kidney function has improved (4) Hypomagnesemia Current Visit: Yes Status: Acute Plan to address problem: Magnesium is now replete (5) Rhabdomyolysis Current Visit: Yes Status: Acute Plan to address problem: Creatinine kinase has improved with volume expansion. Subjective Date of service: 10/02/21 Principal diagnosis: Septic shock; RLExt cellulitis; Morbid obesity; SAL; Rhabdomyolysis Interval history: Patient seen lying in bed. He has no complaints today. Denies any chest pain or shortness of breath. Objective - Exam Narrative Exam: Morbidly obese middle-aged -[place] male lying in bed in no acute distress HEENT: NCAT, pink oral mucous membrane Neck: Supple, no venous distention CVS: S1S2 RRR with no murmur, rub or gallop Chest: Clear to auscultation Abdomen: Protuberant, soft, nontender, no organomegaly, bowel sounds are present Extremities: Swelling right leg with hyperpigmentation and lichenification with dressing right leg. Genitourinary deferred Skin as noted above Neuro: Awake, alert no focal deficits - Vital Signs Vital signs: Vital Signs - 12hr 10/01/21 10/01/21 10/02/21 22:59 23:00 03:39 Temperature 99.0 F 98.6 F Pulse Rate 99 H 107 H 105 H Pulse Rate [ 109 H Right Radial] Respiratory 18 18 19 Rate Blood Pressure 101/52 104/59 O2 Sat by Pulse 94 94 94 Oximetry 10/02/21 08:12 Temperature 99.0 F Pulse Rate 104 H Pulse Rate [ Right Radial] Respiratory 18 Rate Blood Pressure 126/70 O2 Sat by Pulse 91 Oximetry - Lab 10/02/21 04:23 10/02/21 04:23 Most recent lab results Calcium 7.2 mg/dL (8.4-10.2) L 10/02/21 04:23 Phosphorus 1.90 mg/dL (2.5-4.5) L 09/30/21 05:30 Magnesium 2.50 mg/dL (1.7-2.3) H 10/02/21 04:23 Urine Creatinine 153.7 mg/dL (0.1-20.0) H 09/28/21 15:10 Urine Sodium 58 mmol/L 09/28/21 15:10 Medications & Allergies - Medications Allergies/Adverse Reactions: Allergies No Known Allergies Allergy (Verified 09/27/21 22:52) Home Medications: Home Medications Medication Instructions Recorded Confirmed Last Taken Type No Known Home Medications [No 10/01/21 10/01/21 Unknown History Reported Home Medications] Active Medications: Generic Name Dose Route Start Last Admin Trade Name Freq PRN Reason Stop Dose Admin Acetaminophen 650 mg 09/28/21 02:56 09/30/21 20:35 Acetaminophen 325 Mg Tab PO 650 mg Q6H PRN Administration Pain MILD(1-3)/Fever >100.5/BARRY Apixaban 2.5 mg 09/30/21 22:00 10/01/21 22:52 Apixaban 2.5 Mg Tab PO 2.5 mg Q12HR LUZ Administration Protocol Dextrose 50 ml 09/29/21 17:00 Dextrose 50% In Water (25gm) 50 Ml Syringe IV Q30MIN PRN Hypoglycemia Protocol Famotidine 20 mg 09/29/21 22:00 10/01/21 22:52 Famotidine 20 Mg Tab PO 20 mg QHS LUZ Administration Ceftriaxone Sodium 2 gm in 100 mls @ 200 mls/hr 09/28/21 22:00 10/01/21 22:52 Rocephin/Ns 2 Gm/100 Ml IV 200 mls/hr Q24H LUZ Administration Protocol Sodium Bicarbonate 150 meq/ 1,150 mls @ 125 mls/hr 09/28/21 18:00 09/30/21 22:25 Dextrose IV 125 mls/hr DIRECT LUZ Administration Vancomycin HCl 1,500 mg/ 530 mls @ 333.333 mls/hr 10/02/21 10:00 Sodium Chloride IV Q12H LUZ Magnesium Hydroxide 30 ml 09/28/21 02:56 Magnesium Hydroxide (Mom) Oral Liqd Udc PO Q4H PRN Constipation Morphine Sulfate 2 mg 09/28/21 02:56 09/30/21 20:48 Morphine 2 Mg/1 Ml Inj IV 2 mg Q4H PRN Administration Pain, Moderate (4-6) Ondansetron HCl 4 mg 09/28/21 02:56 09/30/21 20:48 Ondansetron 4 Mg/2 Ml Inj IV 4 mg Q8H PRN Administration Nausea And Vomiting Sodium Chloride 10 ml 09/28/21 10:00 10/01/21 22:52 Sodium Chloride 0.9% 10 Ml Flush Syringe IV 10 ml BID LUZ Administration Sodium Chloride 10 ml 09/28/21 02:56 Sodium Chloride 0.9% 10 Ml Flush Syringe IV PRN PRN LINE FLUSH
[2021-10-02] MEDS: VANCOMYCIN 1,500 MG in SODIUM CHLORIDE 0.9% 500 ML 500 ML IV SCH ×2 (12:06→23:18)
--- NOTE | 2021-10-02 12:30 | Progress Note ---
Assessment and Plan Septic shock, probably secondary to right lower extremity cellulitis Right lower extremity cellulitis Morbid obesity Metabolic acidosis Hemoconcentration Hyponatremia Acute kidney injury Elevated serum transaminases Rhabdomyolysis Lactic acidosis Hypomagnesemia - continue wound care per RN/WCT - complete antiinfective's per ID recommendations - outpatient sleep clinic evaluation - continue care as below otherwise; - supplemental oxygen to keep O2 sats > 90% - prn bronchodilators (ADONAY) with pulm hygiene per RT - continue to avoid nephrotoxins, renally dose all medications - mobility protocols to prevent pressure ulcers - PT/OT as tolerated - continue accuchecks with glycemic control per SSI for target blood glucose < 180 mg/dL - tobacco abstinence strongly counseled at the bedside - home oxygen evaluation at discharge - GI & VTE prophylaxis - Flu & pneumovax per protocol - prn analgesia per pain score - continue other care per attending / other consultants ... re-evaluate in am & prn Subjective Date of service: 10/02/21 Principal diagnosis: Septic shock; RLExt cellulitis; Morbid obesity; SAL; Rhabdomyolysis Interval history: Patient is seen today for: Septic shock; Right lower extremity cellulitis; Morbid obesity; SAL; Rhabdomyolysis Seen and examined at bedside; 24hour events reviewed; nursing and respiratory care staff consulted; no adverse overnight events reported to me; resting peacefully in bed; leucocytosis is persistent; azotemia better; denies acute chest pains or palpitations; no high grade fevers Objective Vital Signs - 12hr 10/02/21 10/02/21 03:39 08:12 Temperature 98.6 F 99.0 F Pulse Rate 105 H 104 H Respiratory 19 18 Rate Blood Pressure 104/59 126/70 O2 Sat by Pulse 94 91 Oximetry Constitutional: other (middle aged morbidly obese male with mildly increased respiratory effort at rest) Eyes: non-icteric ENT: oropharynx moist Neck: supple, no lymphadenopathy, no JVD Effort: mildly labored Ascultation: Bilateral: clear, diminished breath sounds Percussion: Bilateral: not dull Cardiovascular: regular rate and rhythm Gastrointestinal: normoactive bowel sounds, soft, non-tender, non-distended (protuberant) Integumentary: rash (stasis dermatitis; RLExt Lymphedema) Extremities: no cyanosis, pulses normal, no ischemia or petechiae, other (lymphedema to right leg) Neurologic: non-focal exam (grossly), pupils equal and round, CN II-XII normal Psychiatric: mood appropriate, affect normal CBC and BMP: 10/03/21 06:04 10/03/21 06:04 ABG, PT/INR, D-dimer: PT/INR, D-dimer PT 15.6 Sec. (12.2-14.9) H 09/30/21 13:58 INR 1.12 (0.87-1.13) 09/30/21 13:58 Abnormal lab findings: Abnormal Labs 09/28/21 09/28/21 09/28/21 00:26 00:26 00:26 WBC RBC 5.70 H Hgb 15.6 H Hct 47.0 H MCV 83 L MCH 27 L RDW 16.8 H Plt Count Lymph % (Auto) Lymph # (Auto) Seg Neutrophils % Lymphocytes % (Manual) 3.0 L Seg Neutrophils # Lymphocytes # (Manual) 0.3 L PT INR VBG pH Sodium 130 L Potassium Carbon Dioxide 14 L BUN 25 H Creatinine 3.8 H Glucose POC Glucose Lactic Acid 4.00 H* Calcium Phosphorus Magnesium AST 245 H ALT 69 H Total Creatine Kinase C-Reactive Protein NT-Pro-B Natriuret Pep Albumin 3.1 L Urine Creatinine Urine Chloride 09/28/21 09/28/21 09/28/21 00:26 00:26 00:26 WBC RBC Hgb Hct MCV MCH RDW Plt Count Lymph % (Auto) Lymph # (Auto) Seg Neutrophils % Lymphocytes % (Manual) Seg Neutrophils # Lymphocytes # (Manual) PT 18.5 H INR 1.39 H VBG pH 7.443 H Sodium Potassium Carbon Dioxide BUN Creatinine Glucose POC Glucose Lactic Acid Calcium Phosphorus Magnesium 0.90 L* AST ALT Total Creatine Kinase 8677 H C-Reactive Protein NT-Pro-B Natriuret Pep Albumin Urine Creatinine Urine Chloride 09/28/21 09/28/21 09/28/21 02:36 14:55 15:10 WBC RBC Hgb Hct MCV MCH RDW Plt Count Lymph % (Auto) Lymph # (Auto) Seg Neutrophils % Lymphocytes % (Manual) Seg Neutrophils # Lymphocytes # (Manual) PT INR VBG pH Sodium Potassium Carbon Dioxide BUN Creatinine Glucose POC Glucose Lactic Acid 3.90 H* 5.00 H* Calcium Phosphorus Magnesium AST ALT Total Creatine Kinase C-Reactive Protein NT-Pro-B Natriuret Pep Albumin Urine Creatinine 153.7 H Urine Chloride 22.1 L 09/28/21 09/29/21 09/29/21 17:51 01:02 04:35 WBC RBC 5.26 H Hgb Hct MCV 83 L MCH 27 L RDW 17.3 H Plt Count Lymph % (Auto) 3.4 L Lymph # (Auto) 0.4 L Seg Neutrophils % 89.9 H Lymphocytes % (Manual) Seg Neutrophils # 9.3 H Lymphocytes # (Manual) PT INR VBG pH Sodium 134 L Potassium Carbon Dioxide 16 L BUN 35 H Creatinine 3.5 H Glucose 69 L POC Glucose Lactic Acid 3.20 H* Calcium 7.4 L Phosphorus Magnesium AST ALT Total Creatine Kinase C-Reactive Protein NT-Pro-B Natriuret Pep Albumin Urine Creatinine Urine Chloride 09/29/21 09/29/21 09/29/21 04:35 04:35 04:35 WBC RBC Hgb Hct MCV MCH RDW Plt Count Lymph % (Auto) Lymph # (Auto) Seg Neutrophils % Lymphocytes % (Manual) Seg Neutrophils # Lymphocytes # (Manual) PT 18.3 H INR 1.37 H VBG pH Sodium 136 L Potassium Carbon Dioxide 19 L BUN 34 H Creatinine 3.0 H Glucose POC Glucose Lactic Acid 5.00 H* Calcium 7.1 L Phosphorus Magnesium AST ALT Total Creatine Kinase C-Reactive Protein NT-Pro-B Natriuret Pep Albumin Urine Creatinine Urine Chloride 09/29/21 09/29/21 09/29/21 04:35 10:36 10:36 WBC RBC Hgb Hct MCV MCH RDW Plt Count Lymph % (Auto) Lymph # (Auto) Seg Neutrophils % Lymphocytes % (Manual) Seg Neutrophils # Lymphocytes # (Manual) PT INR VBG pH Sodium Potassium Carbon Dioxide BUN Creatinine Glucose POC Glucose Lactic Acid 4.30 H* Calcium Phosphorus Magnesium AST ALT Total Creatine Kinase 41842 H C-Reactive Protein NT-Pro-B Natriuret Pep 689.6 H Albumin Urine Creatinine Urine Chloride 09/29/21 09/29/21 09/30/21 14:34 22:02 05:30 WBC 12.5 H RBC 5.16 H Hgb Hct MCV 81 L MCH 27 L RDW 17.1 H Plt Count 92 L Lymph % (Auto) Lymph # (Auto) Seg Neutrophils % Lymphocytes % (Manual) Seg Neutrophils # Lymphocytes # (Manual) PT INR VBG pH Sodium Potassium Carbon Dioxide BUN Creatinine Glucose POC Glucose 115 H Lactic Acid Calcium Phosphorus Magnesium AST ALT Total Creatine Kinase C-Reactive Protein 34.20 H NT-Pro-B Natriuret Pep Albumin Urine Creatinine Urine Chloride 09/30/21 09/30/21 09/30/21 05:30 05:30 08:07 WBC RBC Hgb Hct MCV MCH RDW Plt Count Lymph % (Auto) Lymph # (Auto) Seg Neutrophils % Lymphocytes % (Manual) Seg Neutrophils # Lymphocytes # (Manual) PT INR VBG pH Sodium 135 L Potassium Carbon Dioxide BUN 31 H Creatinine 1.7 H Glucose 129 H POC Glucose 123 H Lactic Acid 3.30 H* Calcium 6.7 L Phosphorus 1.90 L Magnesium AST 194 H ALT 92 H Total Creatine Kinase 6636 H C-Reactive Protein NT-Pro-B Natriuret Pep Albumin 2.1 L Urine Creatinine Urine Chloride 09/30/21 09/30/21 09/30/21 12:17 13:58 13:58 WBC 12.6 H RBC 5.75 H Hgb Hct 47.4 H MCV 83 L MCH 26 L RDW 17.5 H Plt Count Lymph % (Auto) Lymph # (Auto) Seg Neutrophils % Lymphocytes % (Manual) Seg Neutrophils # Lymphocytes # (Manual) PT 15.6 H INR VBG pH Sodium Potassium Carbon Dioxide BUN Creatinine Glucose POC Glucose 121 H Lactic Acid Calcium Phosphorus Magnesium AST ALT Total Creatine Kinase C-Reactive Protein NT-Pro-B Natriuret Pep Albumin Urine Creatinine Urine Chloride 09/30/21 09/30/21 10/01/21 13:58 16:44 04:53 WBC 13.0 H RBC 5.11 H Hgb Hct MCV 82 L MCH 26 L RDW 17.5 H Plt Count Lymph % (Auto) Lymph # (Auto) Seg Neutrophils % Lymphocytes % (Manual) Seg Neutrophils # Lymphocytes # (Manual) PT INR VBG pH Sodium Potassium Carbon Dioxide BUN Creatinine 1.6 H Glucose POC Glucose 121 H Lactic Acid Calcium Phosphorus Magnesium AST ALT Total Creatine Kinase C-Reactive Protein NT-Pro-B Natriuret Pep Albumin Urine Creatinine Urine Chloride 10/01/21 10/01/21 10/01/21 04:53 04:53 07:16 WBC RBC Hgb Hct MCV MCH RDW Plt Count Lymph % (Auto) Lymph # (Auto) Seg Neutrophils % Lymphocytes % (Manual) Seg Neutrophils # Lymphocytes # (Manual) PT INR VBG pH Sodium Potassium 3.4 L Carbon Dioxide BUN 24 H Creatinine Glucose 114 H POC Glucose 110 H Lactic Acid 2.20 H* Calcium 6.8 L Phosphorus Magnesium AST ALT Total Creatine Kinase C-Reactive Protein NT-Pro-B Natriuret Pep Albumin Urine Creatinine Urine Chloride 10/01/21 10/02/21 10/02/21 11:59 04:23 04:23 WBC 15.7 H RBC Hgb Hct MCV 83 L MCH 27 L RDW 17.4 H Plt Count Lymph % (Auto) Lymph # (Auto) Seg Neutrophils % Lymphocytes % (Manual) Seg Neutrophils # Lymphocytes # (Manual) PT INR VBG pH Sodium Potassium 3.2 L Carbon Dioxide BUN Creatinine Glucose POC Glucose 110 H Lactic Acid Calcium 7.2 L Phosphorus Magnesium AST ALT Total Creatine Kinase C-Reactive Protein NT-Pro-B Natriuret Pep Albumin Urine Creatinine Urine Chloride 10/02/21 10/02/21 10/02/21 04:23 04:23 11:15 WBC RBC Hgb Hct MCV MCH RDW Plt Count Lymph % (Auto) Lymph # (Auto) Seg Neutrophils % Lymphocytes % (Manual) Seg Neutrophils # Lymphocytes # (Manual) PT INR VBG pH Sodium Potassium Carbon Dioxide BUN Creatinine Glucose POC Glucose 112 H Lactic Acid Calcium Phosphorus Magnesium 2.50 H AST ALT Total Creatine Kinase 2185 H C-Reactive Protein NT-Pro-B Natriuret Pep Albumin Urine Creatinine Urine Chloride Allied health notes reviewed: nursing
[2021-10-02] MEDS ORDERED: POTASSIUM CHLORIDE ER 20 MEQ TAB PO ONE (12:31)
--- NOTE | 2021-10-02 19:03 | Progress Note ---
Assessment and Plan This is a [id number] AA male with past medical history of morbid obesity, lymphedema of the right lower extremity brought into the ED from the correction with complaints of generalized weakness and RLE pain. Patient was found to be septic secondary to RLE cellulitis, SAL with with hypotension, and tachycardia. Patient was admitted to the ICU for further management. Assessment and plan: --Sepsis with shock Continue IV fluid, status post pressor support Likely due to lower extremity cellulitis, continue empiric antibiotics and follow culture ID following --Rhabdomyolysis - Cr. Kinase was as high as ~ 10K - Continue rehydration with cont. IVF - will continue to trend CK --Acute kidney injury (SAL) most likely ATN - Nephrology on consult, - Strict intake and output - Avoid nephrotoxic medications; Renally dose medications - Continue IVF for now - Monitor and replace electrolytes as needed -- RLE Cellulitis with lymphedema - 09/28 RLE US shows no evidence of DVT - 09/[address] shows right lower extremity cellulitis. Reactive adenopathy in the proximal right thigh right groin and right hemipelvis -Continue empiric antibiotics, IV fluids - ID consulted, pending recommendations - wound care consult - Monitor CBCs and fever curve - Continue to trend lactic acid --Hypomagnesemia, repleted --Morbid obesity, dietary and exercise recommendation when clinically more stable --DVT prophylaxis, heparin --Full CODE STATUS The high probability of a clinically significant, sudden or life threatening deterioration of the [multiple] system(s) required my full and direct attention, intervention and personal management. The aggregate critical care time was [60] minutes. This time is in addition to time spent performing reported procedures but includes the following: [x] Data Review and interpretation [x] Patient assessment and monitoring of vital signs [x] Documentation [x] Medication orders and management Daily clinical course: 09/28/21: Initiate bicarbonate drip for declining renal function and rhabdomyolysis, replete magnesium, follow BMP, consult nephrology, initiate pressor support as blood pressure not responding to fluids only, continue empiric antibiotics, consult critical care. 09/29/21- Patient is off pressors this am, remains slightly tachycardic on a bcarb gtt. Patient remains febrile with worsening Lactic acidosis, WBCs wnl. Continue current IV ABx regimen, ID consulted for RLE cellulitis and fever. Will continue to trend lactic acid and fever curve. 09/30/21- Patient remains febrile overnight, maintain BP no longer on pressors, Lactic acidosis is improving. Continue bcarb gtt and current IV ABx per ID. Worsen thrombocytopenia this am, HIT panel ordered, heparin was switched to PO Eliquis BID. D/w [facility] okay to transfer patient to Telemetry. 10/01/21; creatinine 1.2 today, BP stable. Ordered for PT eval. wait for antibiotic recommendation from ID for discharge planning. Subjective Date of service: 10/02/21 Principal diagnosis: Septic shock; RLExt cellulitis; Morbid obesity; SAL; Rhabdomyolysis Objective - Constitutional Vitals: Vital Signs - 12hr 10/02/21 10/02/21 10/02/21 08:12 11:00 16:13 Temperature 99.0 F 99.4 F Pulse Rate 104 H 110 H Pulse Rate [ 110 H Left Radial] Pulse Rate [ 110 H Right Radial] Respiratory 18 15 18 Rate Blood Pressure 126/70 101/61 O2 Sat by Pulse 91 94 94 Oximetry - Labs CBC & Chem 7: 10/02/21 04:23 10/02/21 04:23 Labs: Abnormal lab results 10/02/21 10/02/21 10/02/21 Range/Units 04:23 04:23 04:23 WBC 15.7 H (4.5-11.0) K/mm3 MCV 83 L (84-94) fl MCH 27 L (28-32) pg RDW 17.4 H (13.2-15.2) % Potassium 3.2 L (3.6-5.0) mmol/L POC Glucose (70-105) mg/dL Calcium 7.2 L (8.4-10.2) mg/dL Magnesium 2.50 H (1.7-2.3) mg/dL Total Creatine Kinase (55-170) units/L 10/02/21 10/02/21 10/02/21 Range/Units 04:23 11:15 16:10 WBC (4.5-11.0) K/mm3 MCV (84-94) fl MCH (28-32) pg RDW (13.2-15.2) % Potassium (3.6-5.0) mmol/L POC Glucose 112 H 114 H (70-105) mg/dL Calcium (8.4-10.2) mg/dL Magnesium (1.7-2.3) mg/dL Total Creatine Kinase 2185 H (55-170) units/L
[2021-10-02] MEDS: cefTRIAXone/NS 2 GM/100 ML 2 GM/100 ML BAG IV SCH (23:21)
[2021-10-02] MEDS: FAMOTIDINE 20 MG TAB PO SCH (23:25)
[2021-10-03 06:39] LABS: Hematocrit 42.3 % (35.5-45.6); Hemoglobin 13.5 gm/dl (11.8-15.2); Mean Corpuscular HGB Conc 32 % (32-34); Mean Corpuscular Volume 83 fl (84-94); Platelet Count 211 K/mm3 (140-440); Red Cell Distribution Width 17.4 % (13.2-15.2)
[2021-10-03 07:08] LABS: BUN/Creatinine Ratio 16; Blood Urea Nitrogen 16 mg/dL (9-20); Calcium 7.3 mg/dL (8.4-10.2); Hemolysis Index 13
[2021-10-03 09:28] VITALS: BP 122/65
[2021-10-03] MEDS ORDERED: POTASSIUM CHLORIDE ER 20 MEQ TAB PO SCH (10:00)
[2021-10-03] MEDS: VANCOMYCIN 1,500 MG in SODIUM CHLORIDE 0.9% 500 ML 500 ML IV SCH (10:30)
[2021-10-03] MEDS: APIXABAN 2.5 MG TAB PO SCH (10:30)
[2021-10-03] MEDS ORDERED: D5W/0.45% NACL 1,000 ML IV SCH (11:00)
[2021-10-03 12:55] LABS: Total Cells Counted 100
[2021-10-03 12:56] LABS: Band Neutrophils # (Manual) 3.1 K/mm3
[2021-10-03 13:05] LABS: Anisocytosis Few; Platelet Clumps Rare; Platelet Estimate Consistent w Auto
--- NOTE | 2021-10-03 14:14 | Progress Note ---
Assessment and Plan This is a [id number] AA male with past medical history of morbid obesity, lymphedema of the right lower extremity brought into the ED from the halfway with complaints of generalized weakness and RLE pain. Patient was found to be septic secondary to RLE cellulitis, SAL with with hypotension, and tachycardia. Patient was admitted to the ICU for further management. Assessment and plan: --Sepsis with shock Continue IV fluid, status post pressor support Likely due to lower extremity cellulitis, continue empiric antibiotics and follow culture ID following --Rhabdomyolysis - Cr. Kinase was as high as ~ 10K - Continue rehydration with cont. IVF - will continue to trend CK --Acute kidney injury (SAL) most likely ATN - Nephrology on consult, - Strict intake and output - Avoid nephrotoxic medications; Renally dose medications - Continue IVF for now - Monitor and replace electrolytes as needed -- RLE Cellulitis with lymphedema - 09/28 RLE US shows no evidence of DVT - 09/[address] shows right lower extremity cellulitis. Reactive adenopathy in the proximal right thigh right groin and right hemipelvis -Continue empiric antibiotics, IV fluids - ID consulted, pending recommendations - wound care consult - Monitor CBCs and fever curve - Continue to trend lactic acid --Hypomagnesemia, repleted --Morbid obesity, dietary and exercise recommendation when clinically more stable --DVT prophylaxis, heparin --Full CODE STATUS The high probability of a clinically significant, sudden or life threatening deterioration of the [multiple] system(s) required my full and direct attention, intervention and personal management. The aggregate critical care time was [60] minutes. This time is in addition to time spent performing reported procedures but includes the following: [x] Data Review and interpretation [x] Patient assessment and monitoring of vital signs [x] Documentation [x] Medication orders and management Daily clinical course: 09/28/21: Initiate bicarbonate drip for declining renal function and rhabdomyolysis, replete magnesium, follow BMP, consult nephrology, initiate pressor support as blood pressure not responding to fluids only, continue empiric antibiotics, consult critical care. 09/29/21- Patient is off pressors this am, remains slightly tachycardic on a bcarb gtt. Patient remains febrile with worsening Lactic acidosis, WBCs wnl. Continue current IV ABx regimen, ID consulted for RLE cellulitis and fever. Will continue to trend lactic acid and fever curve. 09/30/21- Patient remains febrile overnight, maintain BP no longer on pressors, Lactic acidosis is improving. Continue bcarb gtt and current IV ABx per ID. Worsen thrombocytopenia this am, HIT panel ordered, heparin was switched to PO Eliquis BID. D/w CCm okay to transfer patient to Telemetry. 10/01/21; creatinine 1.2 today, BP stable. Ordered for PT eval. wait for antibiotic recommendation from ID for discharge planning. Subjective Date of service: 10/03/21 Principal diagnosis: Septic shock; RLExt cellulitis; Morbid obesity; SAL; Rhabdomyolysis Objective - Constitutional Vitals: Vital Signs - 12hr 10/03/21 10/03/21 10/03/21 02:35 03:02 08:36 Temperature 99.0 F 98.6 F Pulse Rate 105 H 105 H Respiratory 18 19 20 Rate Blood Pressure 112/62 122/65 O2 Sat by Pulse 100 94 93 Oximetry 10/03/21 09:28 Temperature Pulse Rate Respiratory 18 Rate Blood Pressure O2 Sat by Pulse 94 Oximetry - Labs CBC & Chem 7: 10/03/21 06:04 10/03/21 06:04 Labs: Abnormal lab results 10/02/21 10/02/21 10/03/21 Range/Units 16:10 20:45 06:04 WBC 25.9 H (4.5-11.0) K/mm3 RBC 5.10 H (3.65-5.03) M/mm3 MCV 83 L (84-94) fl MCH 27 L (28-32) pg RDW 17.4 H (13.2-15.2) % Seg Neuts % (Manual) 74.0 H (40.0-70.0) % Lymphocytes % (Manual) 9.0 L (13.4-35.0) % Seg Neutrophils # Man 19.2 H (1.8-7.7) K/mm3 Monocytes # (Manual) 1.0 H (0.0-0.8) K/mm3 Sodium (137-145) mmol/L Potassium (3.6-5.0) mmol/L Glucose (75-100) mg/dL POC Glucose 114 H 118 H (70-105) mg/dL Calcium (8.4-10.2) mg/dL 10/03/21 10/03/21 Range/Units 06:04 11:11 WBC (4.5-11.0) K/mm3 RBC (3.65-5.03) M/mm3 MCV (84-94) fl MCH (28-32) pg RDW (13.2-15.2) % Seg Neuts % (Manual) (40.0-70.0) % Lymphocytes % (Manual) (13.4-35.0) % Seg Neutrophils # Man (1.8-7.7) K/mm3 Monocytes # (Manual) (0.0-0.8) K/mm3 Sodium 136 L (137-145) mmol/L Potassium 3.2 L (3.6-5.0) mmol/L Glucose 111 H (75-100) mg/dL POC Glucose 116 H (70-105) mg/dL Calcium 7.3 L (8.4-10.2) mg/dL
--- NOTE | 2021-10-03 14:32 | Progress Note ---
Assessment and Plan - Patient Problems (1) Hypokalemia Current Visit: Yes Status: Acute Plan to address problem: Supplement potassium and follow-up levels. Patient can be discharged on oral potassium supplementation and follow-up potassium level as an outpatient (2) Hypotension Current Visit: Yes Status: Acute Plan to address problem: Improved with volume repletion. Blood pressure still low normal but much better than on presentation (3) Acute kidney injury Current Visit: Yes Status: Acute Plan to address problem: Acute kidney injury probably acute tubular necrosis secondary to rhabdomyolysis and hypotension. Kidney function has improved (4) Hypomagnesemia Current Visit: Yes Status: Acute Plan to address problem: Magnesium is now replete (5) Rhabdomyolysis Current Visit: Yes Status: Acute Plan to address problem: Creatinine kinase has improved with volume expansion. Subjective Date of service: 10/03/21 Principal diagnosis: Septic shock; RLExt cellulitis; Morbid obesity; SAL; Rhabdomyolysis Interval history: Patient seen lying in bed. He has no complaints today. Denies any chest pain or shortness of breath. Patient would like to be discharged Objective - Exam Narrative Exam: Morbidly obese middle-aged -Turkmen male lying in bed in no acute distress HEENT: NCAT, pink oral mucous membrane Neck: Supple, no venous distention CVS: S1S2 RRR with no murmur, rub or gallop Chest: Clear to auscultation Abdomen: Protuberant, soft, nontender, no organomegaly, bowel sounds are present Extremities: Swelling right leg with hyperpigmentation and lichenification with dressing right leg. Genitourinary deferred Skin as noted above Neuro: Awake, alert no focal deficits - Vital Signs Vital signs: Vital Signs - 12hr 10/03/21 10/03/21 10/03/21 02:35 03:02 08:36 Temperature 99.0 F 98.6 F Pulse Rate 105 H 105 H Respiratory 18 19 20 Rate Blood Pressure 112/62 122/65 O2 Sat by Pulse 100 94 93 Oximetry 10/03/21 09:28 Temperature Pulse Rate Respiratory 18 Rate Blood Pressure O2 Sat by Pulse 94 Oximetry - Lab 10/03/21 06:04 10/03/21 06:04 Most recent lab results Calcium 7.3 mg/dL (8.4-10.2) L 10/03/21 06:04 Phosphorus 1.90 mg/dL (2.5-4.5) L 09/30/21 05:30 Magnesium 2.50 mg/dL (1.7-2.3) H 10/02/21 04:23 Urine Creatinine 153.7 mg/dL (0.1-20.0) H 09/28/21 15:10 Urine Sodium 58 mmol/L 09/28/21 15:10 Medications & Allergies - Medications Allergies/Adverse Reactions: Allergies No Known Allergies Allergy (Verified 09/27/21 22:52) Home Medications: Home Medications Medication Instructions Recorded Confirmed Last Taken Type Potassium Chloride [K-Dur] 20 meq PO QDAY #3 tablet 10/03/21 Unknown Rx Sulfamethoxazole/Trimethoprim 1 each PO BID #14 tablet 10/03/21 Unknown Rx [Bactrim DS TAB] cephALEXin [Keflex] 500 mg PO Q6HR #30 capsule 10/03/21 Unknown Rx Active Medications: Generic Name Dose Route Start Last Admin Trade Name Freq PRN Reason Stop Dose Admin Acetaminophen 650 mg 09/28/21 02:56 09/30/21 20:35 Acetaminophen 325 Mg Tab PO 650 mg Q6H PRN Administration Pain MILD(1-3)/Fever >100.5/BARRY Apixaban 2.5 mg 09/30/21 22:00 10/03/21 10:30 Apixaban 2.5 Mg Tab PO Not Given Q12HR LUZ Protocol Dextrose 50 ml 09/29/21 17:00 Dextrose 50% In Water (25gm) 50 Ml Syringe IV Q30MIN PRN Hypoglycemia Protocol Famotidine 20 mg 09/29/21 22:00 10/02/21 23:25 Famotidine 20 Mg Tab PO 20 mg QHS LUZ Administration Magnesium Hydroxide 30 ml 09/28/21 02:56 Magnesium Hydroxide (Mom) Oral Liqd Udc PO Q4H PRN Constipation Morphine Sulfate 2 mg 09/28/21 02:56 09/30/21 20:48 Morphine 2 Mg/1 Ml Inj IV 2 mg Q4H PRN Administration Pain, Moderate (4-6) Ondansetron HCl 4 mg 09/28/21 02:56 09/30/21 20:48 Ondansetron 4 Mg/2 Ml Inj IV 4 mg Q8H PRN Administration Nausea And Vomiting Potassium Chloride 20 meq 10/03/21 10:00 10/03/21 10:30 Potassium Chloride Er 20 Meq Tab PO Not Given QDAY LUZ Potassium Chloride 40 meq 10/03/21 16:01 Potassium Chloride Er 20 Meq Tab PO 10/03/21 16:02 ONCE ONE Sodium Chloride 10 ml 09/28/21 10:00 10/03/21 10:30 Sodium Chloride 0.9% 10 Ml Flush Syringe IV Not Given BID LUZ Sodium Chloride 10 ml 09/28/21 02:56 Sodium Chloride 0.9% 10 Ml Flush Syringe IV PRN PRN LINE FLUSH
[2021-10-03] MEDS ORDERED: POTASSIUM CHLORIDE ER 20 MEQ TAB PO ONE (16:01)
--- NOTE | 2021-10-03 16:03 | Progress Note ---
Assessment and Plan Septic shock, probably secondary to right lower extremity cellulitis Right lower extremity cellulitis Morbid obesity Metabolic acidosis Hemoconcentration Hyponatremia Acute kidney injury Elevated serum transaminases Rhabdomyolysis Lactic acidosis Hypomagnesemia - continue wound care per RN/WCT - complete antiinfective's per ID recommendations - outpatient sleep clinic evaluation - continue care as below otherwise; - supplemental oxygen to keep O2 sats > 90% - prn bronchodilators (ADONAY) with pulm hygiene per RT - continue to avoid nephrotoxins, renally dose all medications - mobility protocols to prevent pressure ulcers - PT/OT as tolerated - continue accuchecks with glycemic control per SSI for target blood glucose < 180 mg/dL - tobacco abstinence strongly counseled at the bedside - home oxygen evaluation at discharge - GI & VTE prophylaxis - Flu & pneumovax per protocol - prn analgesia per pain score - continue other care per attending / other consultants ... re-evaluate in am & prn Subjective Date of service: 10/03/21 Principal diagnosis: Septic shock; RLExt cellulitis; Morbid obesity; SAL; Rhabdomyolysis Interval history: Patient is seen today for: Septic shock; Right lower extremity cellulitis; Morbid obesity; SAL; Rhabdomyolysis Seen and examined at bedside; 24hour events reviewed; nursing and respiratory care staff consulted; no adverse overnight events reported to me; resting peacefully in bed; Objective Vital Signs - 12hr 10/03/21 10/03/21 08:36 09:28 Temperature 98.6 F Pulse Rate 105 H Respiratory 20 18 Rate Blood Pressure 122/65 O2 Sat by Pulse 93 94 Oximetry Constitutional: other (middle aged morbidly obese male with mildly increased respiratory effort at rest) Eyes: non-icteric ENT: oropharynx moist Neck: supple, no lymphadenopathy, no JVD Effort: mildly labored Ascultation: Bilateral: clear, diminished breath sounds Percussion: Bilateral: not dull Cardiovascular: regular rate and rhythm Gastrointestinal: normoactive bowel sounds, soft, non-tender, non-distended (protuberant) Integumentary: rash (stasis dermatitis; RLExt Lymphedema) Extremities: no cyanosis, pulses normal, no ischemia or petechiae, other (lymphedema to right leg) Neurologic: non-focal exam (grossly), pupils equal and round, CN II-XII normal Psychiatric: mood appropriate, affect normal CBC and BMP: 10/03/21 06:04 10/03/21 06:04 ABG, PT/INR, D-dimer: PT/INR, D-dimer PT 15.6 Sec. (12.2-14.9) H 09/30/21 13:58 INR 1.12 (0.87-1.13) 09/30/21 13:58 Abnormal lab findings: Abnormal Labs 09/28/21 09/28/21 09/28/21 00:26 00:26 00:26 WBC RBC 5.70 H Hgb 15.6 H Hct 47.0 H MCV 83 L MCH 27 L RDW 16.8 H Plt Count Lymph % (Auto) Lymph # (Auto) Seg Neutrophils % Seg Neuts % (Manual) Lymphocytes % (Manual) 3.0 L Seg Neutrophils # Seg Neutrophils # Man Lymphocytes # (Manual) 0.3 L Monocytes # (Manual) PT INR VBG pH Sodium 130 L Potassium Carbon Dioxide 14 L BUN 25 H Creatinine 3.8 H Glucose POC Glucose Lactic Acid 4.00 H* Calcium Phosphorus Magnesium AST 245 H ALT 69 H Total Creatine Kinase C-Reactive Protein NT-Pro-B Natriuret Pep Albumin 3.1 L Urine Creatinine Urine Chloride 09/28/21 09/28/21 09/28/21 00:26 00:26 00:26 WBC RBC Hgb Hct MCV MCH RDW Plt Count Lymph % (Auto) Lymph # (Auto) Seg Neutrophils % Seg Neuts % (Manual) Lymphocytes % (Manual) Seg Neutrophils # Seg Neutrophils # Man Lymphocytes # (Manual) Monocytes # (Manual) PT 18.5 H INR 1.39 H VBG pH 7.443 H Sodium Potassium Carbon Dioxide BUN Creatinine Glucose POC Glucose Lactic Acid Calcium Phosphorus Magnesium 0.90 L* AST ALT Total Creatine Kinase 8677 H C-Reactive Protein NT-Pro-B Natriuret Pep Albumin Urine Creatinine Urine Chloride 09/28/21 09/28/21 09/28/21 02:36 14:55 15:10 WBC RBC Hgb Hct MCV MCH RDW Plt Count Lymph % (Auto) Lymph # (Auto) Seg Neutrophils % Seg Neuts % (Manual) Lymphocytes % (Manual) Seg Neutrophils # Seg Neutrophils # Man Lymphocytes # (Manual) Monocytes # (Manual) PT INR VBG pH Sodium Potassium Carbon Dioxide BUN Creatinine Glucose POC Glucose Lactic Acid 3.90 H* 5.00 H* Calcium Phosphorus Magnesium AST ALT Total Creatine Kinase C-Reactive Protein NT-Pro-B Natriuret Pep Albumin Urine Creatinine 153.7 H Urine Chloride 22.1 L 09/28/21 09/29/21 09/29/21 17:51 01:02 04:35 WBC RBC 5.26 H Hgb Hct MCV 83 L MCH 27 L RDW 17.3 H Plt Count Lymph % (Auto) 3.4 L Lymph # (Auto) 0.4 L Seg Neutrophils % 89.9 H Seg Neuts % (Manual) Lymphocytes % (Manual) Seg Neutrophils # 9.3 H Seg Neutrophils # Man Lymphocytes # (Manual) Monocytes # (Manual) PT INR VBG pH Sodium 134 L Potassium Carbon Dioxide 16 L BUN 35 H Creatinine 3.5 H Glucose 69 L POC Glucose Lactic Acid 3.20 H* Calcium 7.4 L Phosphorus Magnesium AST ALT Total Creatine Kinase C-Reactive Protein NT-Pro-B Natriuret Pep Albumin Urine Creatinine Urine Chloride 09/29/21 09/29/21 09/29/21 04:35 04:35 04:35 WBC RBC Hgb Hct MCV MCH RDW Plt Count Lymph % (Auto) Lymph # (Auto) Seg Neutrophils % Seg Neuts % (Manual) Lymphocytes % (Manual) Seg Neutrophils # Seg Neutrophils # Man Lymphocytes # (Manual) Monocytes # (Manual) PT 18.3 H INR 1.37 H VBG pH Sodium 136 L Potassium Carbon Dioxide 19 L BUN 34 H Creatinine 3.0 H Glucose POC Glucose Lactic Acid 5.00 H* Calcium 7.1 L Phosphorus Magnesium AST ALT Total Creatine Kinase C-Reactive Protein NT-Pro-B Natriuret Pep Albumin Urine Creatinine Urine Chloride 09/29/21 09/29/21 09/29/21 04:35 10:36 10:36 WBC RBC Hgb Hct MCV MCH RDW Plt Count Lymph % (Auto) Lymph # (Auto) Seg Neutrophils % Seg Neuts % (Manual) Lymphocytes % (Manual) Seg Neutrophils # Seg Neutrophils # Man Lymphocytes # (Manual) Monocytes # (Manual) PT INR VBG pH Sodium Potassium Carbon Dioxide BUN Creatinine Glucose POC Glucose Lactic Acid 4.30 H* Calcium Phosphorus Magnesium AST ALT Total Creatine Kinase 25180 H C-Reactive Protein NT-Pro-B Natriuret Pep 689.6 H Albumin Urine Creatinine Urine Chloride 09/29/21 09/29/21 09/30/21 14:34 22:02 05:30 WBC 12.5 H RBC 5.16 H Hgb Hct MCV 81 L MCH 27 L RDW 17.1 H Plt Count 92 L Lymph % (Auto) Lymph # (Auto) Seg Neutrophils % Seg Neuts % (Manual) Lymphocytes % (Manual) Seg Neutrophils # Seg Neutrophils # Man Lymphocytes # (Manual) Monocytes # (Manual) PT INR VBG pH Sodium Potassium Carbon Dioxide BUN Creatinine Glucose POC Glucose 115 H Lactic Acid Calcium Phosphorus Magnesium AST ALT Total Creatine Kinase C-Reactive Protein 34.20 H NT-Pro-B Natriuret Pep Albumin Urine Creatinine Urine Chloride 09/30/21 09/30/21 09/30/21 05:30 05:30 08:07 WBC RBC Hgb Hct MCV MCH RDW Plt Count Lymph % (Auto) Lymph # (Auto) Seg Neutrophils % Seg Neuts % (Manual) Lymphocytes % (Manual) Seg Neutrophils # Seg Neutrophils # Man Lymphocytes # (Manual) Monocytes # (Manual) PT INR VBG pH Sodium 135 L Potassium Carbon Dioxide BUN 31 H Creatinine 1.7 H Glucose 129 H POC Glucose 123 H Lactic Acid 3.30 H* Calcium 6.7 L Phosphorus 1.90 L Magnesium AST 194 H ALT 92 H Total Creatine Kinase 6636 H C-Reactive Protein NT-Pro-B Natriuret Pep Albumin 2.1 L Urine Creatinine Urine Chloride 09/30/21 09/30/21 09/30/21 12:17 13:58 13:58 WBC 12.6 H RBC 5.75 H Hgb Hct 47.4 H MCV 83 L MCH 26 L RDW 17.5 H Plt Count Lymph % (Auto) Lymph # (Auto) Seg Neutrophils % Seg Neuts % (Manual) Lymphocytes % (Manual) Seg Neutrophils # Seg Neutrophils # Man Lymphocytes # (Manual) Monocytes # (Manual) PT 15.6 H INR VBG pH Sodium Potassium Carbon Dioxide BUN Creatinine Glucose POC Glucose 121 H Lactic Acid Calcium Phosphorus Magnesium AST ALT Total Creatine Kinase C-Reactive Protein NT-Pro-B Natriuret Pep Albumin Urine Creatinine Urine Chloride 09/30/21 09/30/21 10/01/21 13:58 16:44 04:53 WBC 13.0 H RBC 5.11 H Hgb Hct MCV 82 L MCH 26 L RDW 17.5 H Plt Count Lymph % (Auto) Lymph # (Auto) Seg Neutrophils % Seg Neuts % (Manual) Lymphocytes % (Manual) Seg Neutrophils # Seg Neutrophils # Man Lymphocytes # (Manual) Monocytes # (Manual) PT INR VBG pH Sodium Potassium Carbon Dioxide BUN Creatinine 1.6 H Glucose POC Glucose 121 H Lactic Acid Calcium Phosphorus Magnesium AST ALT Total Creatine Kinase C-Reactive Protein NT-Pro-B Natriuret Pep Albumin Urine Creatinine Urine Chloride 10/01/21 10/01/21 10/01/21 04:53 04:53 07:16 WBC RBC Hgb Hct MCV MCH RDW Plt Count Lymph % (Auto) Lymph # (Auto) Seg Neutrophils % Seg Neuts % (Manual) Lymphocytes % (Manual) Seg Neutrophils # Seg Neutrophils # Man Lymphocytes # (Manual) Monocytes # (Manual) PT INR VBG pH Sodium Potassium 3.4 L Carbon Dioxide BUN 24 H Creatinine Glucose 114 H POC Glucose 110 H Lactic Acid 2.20 H* Calcium 6.8 L Phosphorus Magnesium AST ALT Total Creatine Kinase C-Reactive Protein NT-Pro-B Natriuret Pep Albumin Urine Creatinine Urine Chloride 10/01/21 10/02/21 10/02/21 11:59 04:23 04:23 WBC 15.7 H RBC Hgb Hct MCV 83 L MCH 27 L RDW 17.4 H Plt Count Lymph % (Auto) Lymph # (Auto) Seg Neutrophils % Seg Neuts % (Manual) Lymphocytes % (Manual) Seg Neutrophils # Seg Neutrophils # Man Lymphocytes # (Manual) Monocytes # (Manual) PT INR VBG pH Sodium Potassium 3.2 L Carbon Dioxide BUN Creatinine Glucose POC Glucose 110 H Lactic Acid Calcium 7.2 L Phosphorus Magnesium AST ALT Total Creatine Kinase C-Reactive Protein NT-Pro-B Natriuret Pep Albumin Urine Creatinine Urine Chloride 10/02/21 10/02/21 10/02/21 04:23 04:23 11:15 WBC RBC Hgb Hct MCV MCH RDW Plt Count Lymph % (Auto) Lymph # (Auto) Seg Neutrophils % Seg Neuts % (Manual) Lymphocytes % (Manual) Seg Neutrophils # Seg Neutrophils # Man Lymphocytes # (Manual) Monocytes # (Manual) PT INR VBG pH Sodium Potassium Carbon Dioxide BUN Creatinine Glucose POC Glucose 112 H Lactic Acid Calcium Phosphorus Magnesium 2.50 H AST ALT Total Creatine Kinase 2185 H C-Reactive Protein NT-Pro-B Natriuret Pep Albumin Urine Creatinine Urine Chloride 10/02/21 10/02/21 10/03/21 16:10 20:45 06:04 WBC 25.9 H RBC 5.10 H Hgb Hct MCV 83 L MCH 27 L RDW 17.4 H Plt Count Lymph % (Auto) Lymph # (Auto) Seg Neutrophils % Seg Neuts % (Manual) 74.0 H Lymphocytes % (Manual) 9.0 L Seg Neutrophils # Seg Neutrophils # Man 19.2 H Lymphocytes # (Manual) Monocytes # (Manual) 1.0 H PT INR VBG pH Sodium Potassium Carbon Dioxide BUN Creatinine Glucose POC Glucose 114 H 118 H Lactic Acid Calcium Phosphorus Magnesium AST ALT Total Creatine Kinase C-Reactive Protein NT-Pro-B Natriuret Pep Albumin Urine Creatinine Urine Chloride 10/03/21 10/03/21 06:04 11:11 WBC RBC Hgb Hct MCV MCH RDW Plt Count Lymph % (Auto) Lymph # (Auto) Seg Neutrophils % Seg Neuts % (Manual) Lymphocytes % (Manual) Seg Neutrophils # Seg Neutrophils # Man Lymphocytes # (Manual) Monocytes # (Manual) PT INR VBG pH Sodium 136 L Potassium 3.2 L Carbon Dioxide BUN Creatinine Glucose 111 H POC Glucose 116 H Lactic Acid Calcium 7.3 L Phosphorus Magnesium AST ALT Total Creatine Kinase C-Reactive Protein NT-Pro-B Natriuret Pep Albumin Urine Creatinine Urine Chloride Allied health notes reviewed: nursing
--- NOTE | 2021-10-04 08:02 | Discharge Summary ---
Providers - Providers Date of Admission: 09/28/21 02:56 Date of discharge: 10/03/21 Attending physician: JUAQUIN HARRIS 09/28/21 02:59 Consult to Dietitian/Nutrition [CONS] Routine Physician Instructions: Reason For Exam: Reason for Consult: Diet education 09/28/21 07:44 Consult to Physician [CONS] Routine Comment: Consulting Provider: ISAAC ESQUIVEL Physician Instructions: Reason For Exam: Renal insufficiency 09/28/21 21:25 Consult to Physician [CONS] Routine Comment: Consulting Provider: CONY FOREMAN Physician Instructions: Reason For Exam: Cellulitis Rt.lower extremity, sepsis 09/29/21 13:00 Consult to Physician [CONS] Routine Comment: Spoke to Cecilia/Sumi Consulting Provider: NICOLE RODRIGUES Physician Instructions: Reason For Exam: RLE Cellutis, Fever 09/29/21 18:21 Consult to Wound/ET Nurse [CONS] Routine Reason For Exam: wound eval 10/01/21 09:03 Physical Therapy Evaluation and Treat [CONS] Routine Comment: Reason For Exam: Debility Primary care physician: APPLICATION ADMINISTRATOR Hospitalization Condition: Critical Disposition: LEFT AGAINST MEDICAL ADVICE Final Discharge Diagnosis (Prints w/discharge instructions): --Sepsis with shock. --Rhabdomyolysis. --Acute kidney injury (SAL) most likely ATN. -- RLE Cellulitis with lymphedema. --Hypomagnesemia,. --Morbid obesity Time spent for discharge: 34 minutes Exam - Physical Exam Narrative exam: General appearance: Present: no acute distress, well-nourished, obese - EENT Eyes: Present: PERRL, EOM intact ENT: hearing intact, clear oral mucosa - Neck Neck: Present: normal ROM - Respiratory Respiratory effort: normal Respiratory: bilateral: diminished - Cardiovascular Rhythm: regular Heart Sounds: Present: S1 & S2 - Extremities Extremities: no ischemia, pulses intact, pulses symmetrical Extremity abnormal: edema - Peripheral Assessment Right Lower Extremity Edema Type: Non-pitting Edema Degree: 4+ Capillary Refill: < 3 seconds Skin Temperature: Warm Generalized Edema Type: Non-pitting Edema Degree: 1+ Capillary Refill: < 3 seconds Skin Temperature: Warm Peripheral Pulses: within normal limits - Abdominal General gastrointestinal: soft, non-tender, normal bowel sounds - Integumentary Integumentary: Present: warm, dry - Psychiatric Psychiatric: cooperative - Neurologic Neurologic: CNII-XII intact, moves all extremities - Constitutional Vitals: Temp Pulse Resp BP Pulse Ox 98.6 F 105 H 18 122/65 94 10/03/21 08:36 10/03/21 08:36 10/03/21 09:28 10/03/21 08:36 10/03/21 09:28 Plan Activity: advance as tolerated Diet: low fat, low salt Follow up with: PRIMARY CARE, [Primary Care Provider] - 3-5 Days Forms: AMA Form Prescriptions: Sulfamethoxazole/Trimethoprim [Bactrim DS TAB] 1 each PO BID #14 tablet Potassium Chloride [K-Dur] 20 meq PO QDAY #3 tablet cephALEXin [Keflex] 500 mg PO Q6HR #30 capsule
[2021-10-05 13:29] LABS: Heparin-Induced Platelet Antib Negative (Negative); Unfractionated Heparin Negative (Negative)
== END 2021-10-03 16:40 | disposition left against medical advice (07) | DRG 871 ==
LOC: ED 22:23 → EEVIPCON 22:23 → IMCU 09-28 02:56 → CC1 09-28 08:14 → 4A 09-30 22:04
PROVIDERS: ADMIT Internal Medicine Geriatric Medicine; ATTEND Internal Medicine
PROC: 05HM33Z Insertion of Infusion Device into Right Internal Jugular Vein, Percutaneous Approach (ICD-10-PCS; principal; 2021-09-28)
PROC: B543ZZA Ultrasonography of Right Jugular Veins, Guidance (ICD-10-PCS; 2021-09-28)
DX: A41.9 Sepsis, unspecified organism (principal); N17.0 Acute kidney failure with tubular necrosis; R65.21 Severe sepsis with septic shock; M62.82 Rhabdomyolysis; L03.115 Cellulitis of right lower limb; Z68.43 Body mass index [BMI] 50.0-59.9, adult; E87.1 Hypo-osmolality and hyponatremia; E83.42 Hypomagnesemia; E86.0 Dehydration; E66.01 Morbid (severe) obesity due to excess calories; E16.2 Hypoglycemia, unspecified; I89.0 Lymphedema, not elsewhere classified; E87.6 Hypokalemia; Z20.822 Contact with and (suspected) exposure to COVID-19
CPT/HCPCS: 36415; 71045; 80048; 80053; 80202; 81001; 82140; 82436; 82550; 82565; 82570; 82805; 82962; 83735; 83880; 84100; 84145; 84300; 84443; 85007; 85025; 85027; 85610; 85730; 86022; 86140; 87040; 93005; 93306; 99292; G0378; J0696; J1644; J2270; J2405; J3370; J3475; J7030; J7040; J7070; U0003